=== PATIENT | male | born 1960 | race Caucasian/White ===

== ENCOUNTER 2022-06-10 14:26 | Inpatient (IN) | payer OTHER, SELFPAY ==
[2022-06-10] VITALS (8 sets, daily range): BP systolic 94–147; BP diastolic 59–88; PULSE 57–150; RESP 13–18; TEMP 36.6–36.7; O2SAT 97–99; BMI 28.2
--- NOTE | 2022-06-10 | ECG_ITS ---
Test Reason : chest pain Blood Pressure : / mmHG Vent. Rate : 102 BPM Atrial Rate : 000 BPM P-R Int : 000 ms QRS Dur : 092 ms QT Int : 348 ms P-R-T Axes : 000 -19 021 degrees QTc Int : 453 ms Atrial fibrillation with rapid ventricular response Abnormal ECG When compared with ECG of 10-JUN-2022 14:34, Atrial fibrillation has replaced Sinus rhythm Right bundle branch block is no longer Present Heart rate has decreased Referred By: Lakshmi Augustine Electronically Signed By:MAG PAGAN
--- NOTE | ~2022-06-10 | XR_ITS ---
EXAMINATION: XR CHEST CLINICAL INFORMATION: Tachycardia COMPARISON: Wrist x-ray 10/01/2012 TECHNIQUE: 2 views of the chest were obtained. FINDINGS: The lungs are clear. No airspace consolidation, pleural effusion, or pneumothorax. The cardiomediastinal silhouette is within normal limits. No acute osseous injury. Suture anchors in the right humeral head compatible with prior rotator cuff repair. XR/XR chest 2V IMPRESSION: No acute pulmonary process.
--- NOTE | 2022-06-10 14:27 | ECG_ITS ---
Test Reason : palp Blood Pressure : / mmHG Vent. Rate : 151 BPM Atrial Rate : 151 BPM P-R Int : 132 ms QRS Dur : 140 ms QT Int : 316 ms P-R-T Axes : 000 -32 -59 degrees QTc Int : 500 ms Sinus tachycardia Left axis deviation Right bundle branch block ST depression, consider subendocardial injury Inferior leads Abnormal ECG When compared with ECG of 08-OCT-2016 15:16, Vent. rate has increased BY 66 BPM Right bundle branch block is now Present ST now depressed in Inferior leads Referred By: Generic ED Physician Electronically Signed By:MAG PAGAN
[2022-06-10 14:43] LABS: MANUAL DIFF FLAG NO
[2022-06-10 14:44] LABS: Basophils Absolute Auto 0.1 X10*3/uL (0.0-0.2); Basophils Percent Auto 0.9 % (0-2); Hematocrit 41.8 % (42.0-52.0); Hemoglobin 13.8 g/dl (14.0-18.0); Imm Gran Abs Auto 0.03 X10*3/uL (0.00-0.03); Imm Gran Pct Auto 0.4 % (0.0-0.4); Lymphocytes Absolute Auto 1.2 X10*3/uL (1.2-4.9); Lymphocytes Percent Auto 15.1 % (20-40); Mean Corpuscular Hemoglobin 31.2 pg (27.0-33.0); Mean Corpuscular Volume 94.4 fL (80.0-98.0); Mean Platelet Volume 9.9 fL (9.4-12.4); Monocytes Absolute Auto 0.4 X10*3/uL (0.1-1.2); Monocytes Percent Auto 4.9 % (2-11); Neutrophils Absolute Auto 6.4 x10*3/uL (2.0-8.3); Neutrophils Percent Auto 78.7 % (45-73); Platelet Count 289 X10*3/uL (160-400); Red Blood Count 4.43 X10*6/uL (4.60-5.80); Red Cell Distribution Width 12.4 % (11.0-16.0); White Blood Count 8.2 X10*3/uL (4.8-10.8)
--- NOTE | 2022-06-10 14:50 | PC.NURSE ---
Patient arrives to ED room 5 and care assumed. Patient was seen about 2 weeks ago for an elbow cellulitis and was diagnosed with new onset AFIB 150s- started on metoprolol and xarelto ( has been taking as prescribed, but only took 1/2 metop this AM because ran out). While at a routine appointment today, still in afib 150s so sent to ED. Patient is alert, oriented x4, and overall well-appearing. He endorses palpitations and a headache. Denies chest PAIN. +pulses palpalbe. HR AFIB 150s with extremely short moments of NSR.
--- NOTE | 2022-06-10 14:57 | ED_ITS ---
HPI - Arrhythmia/Palpitations General Chief Complaint: Arrhythmia/Palpitations Stated Complaint: Afib Time Seen by Provider: 06/10/22 14:35 Source: patient and family Mode of arrival: ambulatory Limitations: no limitations History of Present Illness HPI narrative: 62-year-old male who is diagnosed with AFib at the PCP office 2 weeks ago started on Xarelto and metoprolol 50 mg daily presents with reports of tachyc ardia. Patient tells me he is waiting for an appoint with Cardiology. He followed up today the primary care office and was noted to have heart rates in the 150s and was referred into the emergency room for further evaluation. Patient tells me he has been compliant with medications and starting them 2 weeks ago. Patient has history of an unknown autoimmune disorder on prednisone, hypertension, arthritis takes chronic opiates, ADHD. Patient reports feeling tired all the time, intermittent palpitations. No chest pain, shortness of breath, leg swelling or leg pain. Related Data Home Medications Medication Instructions Recorded Confirmed dextroamphetamine-amphetamine 15 1 tab PO BID@0700,1200 06/10/22 06/10/22 mg tablet ergocalciferol (vitamin D2) 1,250 1 cap PO MO 06/10/22 06/10/22 mcg (50,000 unit) capsule lisinopril 40 mg tablet 1 tab PO DAILY 06/10/22 06/10/22 metoprolol succinate 50 mg 1 tab PO DAILY 06/10/22 06/10/22 tablet,extended release 24 hr oxycodone-acetaminophen 7.5 mg-325 1 tab PO TID PRN Pain 06/10/22 06/10/22 mg tablet prednisone 5 mg tablet 1 tab PO DAILY 06/10/22 06/10/22 rivaroxaban 20 mg tablet (Xarelto) 1 tab PO DAILY 06/10/22 06/10/22 Allergies Allergy/AdvReac Type Severity Reaction Status Date / Time phenobarbital [PHENOBARBITAL] Allergy Severe RASH, Verified 06/10/22 15:21 blisters codeine [Codeine] Allergy Intermediate NAUSEA/VOMITING, Verified 06/10/22 15:21 GI upset aspirin [Fiorinal] Allergy Unknown hives Verified 06/10/22 15:21 butalbital [Fiorinal] Allergy Unknown hives Verified 06/10/22 15:21 caffeine [Fiorinal] Allergy Unknown hives Verified 06/10/22 15:21 Codeine Sulfate Allergy Unknown nausea and Uncoded 06/10/22 15:21 vomiting Review of Systems Review of Systems: Yes all other systems are reviewed and are negative Constitutional: Constitutional: Reports no additional constitutional complaints, Denies body ache(s), Denies chills, Denies fever(s), Denies headache(s) and Denies weakness Eyes: Eyes: Reports no additional eye complaints and Denies change in vision ENT: Reports system reviewed and no additional complaints, except as documented, Denies dizziness, Denies headache(s), Denies nasal congestion, Denies nasal discharge and Denies neck pain Cardiovascular: Cardiovascular: Reports no additional cardiovascular complaints, Denies acrocyanosis, Denies chest pain, Denies leg edema, Reports palpitations and Denies dyspnea Respiratory: Respiratory: Reports no additional respiratory complaints, Denies cough and Denies dyspnea Gastrointestinal: Gastrointestinal: Reports no additional gastrointestinal complaints, Denies abdominal pain, Denies diarrhea, Denies nausea and Denies vomiting Genitourinary: Genitourinary: Denies urinary incontinence Musculoskeletal: Musculoskeletal: Reports no additional musculoskeletal complaints, Denies back pain, Denies arthralgias, Denies joint swelling, Denies neck pain, Denies numbness and Denies tingling Integumentary/Breasts: Skin/Breast: Reports system reviewed and no additional complaints, except as docu and Denies rash Neurologic: Reports system reviewed and no additional complaints, except as documented, Denies Abnormal speech present, Denies dizziness, Denies headache(s), Denies numbness, Denies tingling and Denies weakness Endocrine: Endocrine: Reports palpitations PMFSH Past Medical History Attestation statement: The following information was validated with the patient. Source: old records reviewed and nursing notes reviewed Social History Social History Advance Directives: No Advance Directives Information Provided: Yes Physical Exam Vital Signs: Vital Signs: Last Vital Signs Temp 98.0 F 06/10/22 14:50 Pulse 57 06/10/22 15:47 Resp 18 06/10/22 15:17 BP 128/80 06/10/22 15:47 Pulse Ox 99 06/10/22 14:50 O2 Del Method 06/10/22 14:50 BMI result Body Mass Index 28.2 Const: General: cooperative, healthy appearing, comfortable and no acute distress Orientation/consciousness: patient oriented x3 Limitations: no limitations HEENT: Head: Yes normal to inspection Ears: hearing grossly normal bilaterally General nose exam: Normal external nose present Face and sinus: Yes normal facial exam Mouth: Normal oral and palatal mucosa present Throat: Yes posterior oropharynx normal Eyes: General: appearance normal, both eyes and all related structures Pupils: Equal, round and reactive pupils present Neck: Neck: Yes normal visual inspection Chest: Chest palpation & inspection: normal inspection of the chest Resp: Effort & Inspection: normal respiratory effort Auscultation: clear to auscultation bilaterally Cardio: Rate: tachycardic Rhythm: abnormal rhythm irregularly irregular Peripheral pulses: Peripheral pulses 2+ throughout GI: Inspection: Yes normal to inspection Palpation (GI): Soft to palpation and nontender Auscultation: normal bowel sounds Back/Spine/Pelvis: Thoracic/Lumbar Spine: thoracic and lumbar spine normal to inspection Skin: General skin exam: no rashes or lesions noted Neuro: General: patient oriented x3, no focal motor deficits and normal sensation to monofilament Cranial nerves: Yes Equal, round and reactive pupils present Cognition (Neuro): normal cognition Speech: No Abnormal speech present Gait exam (Neuro): Normal gait present Motor exam (neuro): 5/5 motor strength present throughout Extrem: General: Yes normal to inspection, Yes no pedal edema and Yes no calf tenderness Course Course Course Narrative: After a single dose of Cardizem IV push and several minutes of cardizem gtt the patient's heart rate ranges anywhere from 50-120 irregular. I spoke to Dr. Garcia. Recommended hold in Cardizem drip unless heart rate elevated and t hen may manage with IV push Cardizem. Give Cardizem 60 mg p.o. 1 time dose and admit to medicine. Reevaluation(s) Reevaluation #1: 1630-will discuss with medicine for admission. Spoke to Lakshmi BENÍTEZ who accepted admission Consultations Consultation #1: Spoke to Dr. Garcia from Cardiology. Recommended Cardizem drip for rate control and admission MDM - Arrhythmia/Palpitations MDM Narrative Medical decision making narrative: This is a 62-year-old male who reportedly was diagnosed with AFib 2 weeks ago the primary care office and started on metoprolol and Xarelto who presents from the primary care office today with tachycardia with heart rates in the 150s. On arrival patient has heart rate 150. Blood pressure is stable. Patient is al ert and oriented. EKG will be obtained including labs and a chest x-ray and COVID screen. 1500-patient noted to have heart rate anywhere from 80-160 irregular. EKG shows flutter/fib Will give cardizem 10mg IVP and re-assess. Anticipate admit D/w with cards Medical Records Attestation: I reviewed the patient's medical records. Lab Data Attestation: I reviewed the patient's lab results. Result diagrams: 06/10/22 14:38 06/10/22 14:38 Labs: Lab Results 06/10/22 06/10/22 06/10/22 Range/Units 14:38 14:38 14:38 WBC 8.2 (4.8-10.8) X10*3/uL RBC 4.43 L (4.60-5.80) X10*6/uL Hgb 13.8 L (14.0-18.0) g/dl Hct 41.8 L (42.0-52.0) % MCV 94.4 (80.0-98.0) fL MCH 31.2 (27.0-33.0) pg MCHC 33.0 (31.0-36.0) g/dl RDW 12.4 (11.0-16.0) % Plt Count 289 (160-400) X10*3/uL MPV 9.9 (9.4-12.4) fL Immature Gran % (Auto) 0.4 (0.0-0.4) % Neut % (Auto) 78.7 H (45-73) % Lymph % (Auto) 15.1 L (20-40) % [place] % (Auto) 4.9 (2-11) % Eos % (Auto) 0.0 (0-4) % Baso % (Auto) 0.9 (0-2) % Lymph # (Auto) 1.2 (1.2-4.9) X10*3/uL [place] # (Auto) 0.4 (0.1-1.2) X10*3/uL Eos # (Auto) 0.0 (0.0-0.4) X10*3/uL Baso # (Auto) 0.1 (0.0-0.2) X10*3/uL Abs Immat Gran (auto) 0.03 (0.00-0.03) X10*3/uL Absolute Neuts (auto) 6.4 (2.0-8.3) x10*3/uL Absolute Nucleated RBC 0.000 (0.0-0.012) X10*3/uL Nucleated RBC % (auto) 0.0 (0.0-0.2) /100WBC PT (10.0-13.1) SEC INR (0.9-1.1) Sodium 142 (135-145) mmol/L Potassium 4.9 (3.3-5.1) mmol/L Chloride 103 (96-108) mmol/L Carbon Dioxide 26 (22-29) mmol/L Anion Gap 18 (12-20) BUN 28 H (9-16) mg/dL Creatinine 1.32 (0.5-1.4) mg/dL Estim Creat Clear Calc 71.3 Estimated GFR 55 Random Glucose 117 H (60-115) mg/dL Calcium 9.6 (8.4-10.2) mg/dL Magnesium 2.5 (1.6-2.6) mg/dL Total Bilirubin 0.4 (0.0-1.0) mg/dL Direct Bilirubin < 0.2 (0.0-0.5) mg/dL AST 26 (5-37) U/L ALT 23 (0-40) U/L Alkaline Phosphatase 66 (39-117) U/L Troponin I High Sens 8.4 (<3.5-35.0) ng/L B-Natriuretic Peptide (<100) pg/mL Total Protein 7.1 (6.5-8.0) g/dL Albumin 4.2 (3.5-5.0) g/dL COVID-19 ([facility]) (Negative) COVID-19 Clin Com 06/10/22 06/10/22 06/10/22 Range/Units 14:38 14:49 14:49 WBC (4.8-10.8) X10*3/uL RBC (4.60-5.80) X10*6/uL Hgb (14.0-18.0) g/dl Hct (42.0-52.0) % MCV (80.0-98.0) fL MCH (27.0-33.0) pg MCHC (31.0-36.0) g/dl RDW (11.0-16.0) % Plt Count (160-400) X10*3/uL MPV (9.4-12.4) fL Immature Gran % (Auto) (0.0-0.4) % Neut % (Auto) (45-73) % Lymph % (Auto) (20-40) % [place] % (Auto) (2-11) % Eos % (Auto) (0-4) % Baso % (Auto) (0-2) % Lymph # (Auto) (1.2-4.9) X10*3/uL [place] # (Auto) (0.1-1.2) X10*3/uL Eos # (Auto) (0.0-0.4) X10*3/uL Baso # (Auto) (0.0-0.2) X10*3/uL Abs Immat Gran (auto) (0.00-0.03) X10*3/uL Absolute Neuts (auto) (2.0-8.3) x10*3/uL Absolute Nucleated RBC (0.0-0.012) X10*3/uL Nucleated RBC % (auto) (0.0-0.2) /100WBC PT 15.4 H (10.0-13.1) SEC INR 1.3 H (0.9-1.1) Sodium (135-145) mmol/L Potassium (3.3-5.1) mmol/L Chloride (96-108) mmol/L Carbon Dioxide (22-29) mmol/L Anion Gap (12-20) BUN (9-16) mg/dL Creatinine (0.5-1.4) mg/dL Estim Creat Clear Calc Estimated GFR Random Glucose (60-115) mg/dL Calcium (8.4-10.2) mg/dL Magnesium (1.6-2.6) mg/dL Total Bilirubin (0.0-1.0) mg/dL Direct Bilirubin (0.0-0.5) mg/dL AST (5-37) U/L ALT (0-40) U/L Alkaline Phosphatase (39-117) U/L Troponin I High Sens (<3.5-35.0) ng/L B-Natriuretic Peptide 265 H (<100) pg/mL Total Protein (6.5-8.0) g/dL Albumin (3.5-5.0) g/dL COVID-19 ([facility]) Negative (Negative) COVID-19 Clin Com See Note Imaging Data Chest x-ray: Attestation: I personally reviewed and interpreted this imaging study as follows: Radiologist's impression: EXAMINATION: XR CHEST CLINICAL INFORMATION: Tachycardia COMPARISON: Wrist x-ray 10/01/2012 TECHNIQUE: 2 views of the chest were obtained. FINDINGS: The lungs are clear. No airspace consolidation, pleural effusion, or pneumothorax. The cardiomediastinal silhouette is within normal limits. No acute osseous injury. Suture anchors in the right humeral head compatible with prior rotator cuff repair. XR/XR chest 2V IMPRESSION: No acute pulmonary process. ECG Data Attestation: I personally reviewed and interpreted this ECG as follows: ECG interpretation date: 06/10/22 ECG interpretation time: 14:34 Critical Care Time Critical Care Time Critical Care Time: Yes Total Critical Care Time: 60 Attestation: re-evaluations for tachycardic rhythm requiring intervention with anti arrhythmics, discussion with Cardiology Discharge Plan Discharge Clinical Impression: Atrial fibrillation Patient Disposition: Admitted As Inpatient
[2022-06-10 15:01] LABS: COVID-19 Test Negative (Negative); IDNOW Serial# 16C4AD1C
[2022-06-10 15:03] LABS: INTERNATIONAL NORM RATIO 1.3 (0.9-1.1); Prothrombin Time 15.4 SEC (10.0-13.1)
[2022-06-10 15:04] LABS: Troponin-I High Sensitivity 8.4 ng/L (<3.5-35.0)
[2022-06-10 15:08] LABS: Alanine Aminotransferase 23 U/L (0-40); Albumin Level 4.2 g/dL (3.5-5.0); Alkaline Phosphatase 66 U/L (39-117); Anion Gap 18 (12-20); Aspartate Amino Transferase 26 U/L (5-37); Bilirubin Direct < 0.2 mg/dL (0.0-0.5); Bilirubin Total 0.4 mg/dL (0.0-1.0); Blood Urea Nitrogen 28 mg/dL (9-16); Calcium 9.6 mg/dL (8.4-10.2); Carbon Dioxide 26 mmol/L (22-29); Chloride 103 mmol/L (96-108); Creatinine Clr Calc Pharmacy 71.3; Estimated Glomerular Filt Rate 55; Glucose Random 117 mg/dL (60-115); Potassium 4.9 mmol/L (3.3-5.1); Sodium 142 mmol/L (135-145); Total Protein 7.1 g/dL (6.5-8.0)
[2022-06-10] MEDS: dilTIAZem HCL 50 MG/10 ML VIAL 10 MG IVPUSH (15:13)
[2022-06-10 15:21] LABS: Magnesium 2.5 mg/dL (1.6-2.6)
[2022-06-10 15:26] LABS: B Type Natriuretic Peptide 265 pg/mL (<100)
[2022-06-10] MEDS: dilTIAZem HCL 125 MG in 0.9 % Sodium Chloride 100 ML 10 MG IVCONT (15:44)
--- NOTE | 2022-06-10 15:59 | PC.NURSE ---
Cardizem drip initiated and HR varying from SB 50s to 1teens, intermittenly back up to 150s afib. 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
[2022-06-10] MEDS: dilTIAZem HCL 60 MG TABLET PO (16:49)
--- NOTE | 2022-06-10 17:14 | PM.IMHP ---
History of Present Illness Date of Service: 06/10/22 Attending physician on admission: Marcellus Nice Chief Complaint: tachycardia This is a 62-year-old male who was recently diagnosed with atrial fibrillation sent to the emergency department from his PCPs office with rapid AFib. Two weeks ago he had routine follow-up appointment with his PCP and was incidentally found to be tachycardic with a heart rate in the 150s. EKG at that time showed atrial fibrillation. His dose of metoprolol was increased and he was started on anticoagulation with Xarelto. He reports that he has had episodes where he feels an abnormal sensation in his chest intermittently for the past several years. Sometimes reports feeling like its hard to catch his breath. He does not currently have any shortness of breath, orthopnea or chest pain. In the emergency department he received 10 mg of IV Cardizem and was then started on a Cardizem drip. Shortly after being started on Cardizem drip his heart rate dropped into the 50s and thus the Cardizem drip was discontinued. He was instead given a dose of oral Cardizem and the decision was made to admit him to the hospital for further management. Of note patient's heart rate has been fluctuating between the 50s and 140s. Review of Systems Review of Systems: Yes all other systems are reviewed and are negative Constitutional: Constitutional: Denies chills and Denies fever(s) ENT: Reports dizziness Cardiovascular: Cardiovascular: Denies chest pain, Denies palpitations, Denies orthopnea and Denies paroxysmal nocturnal dyspnea Gastrointestinal: Gastrointestinal: Denies constipation, Denies diarrhea, Reports nausea and Denies vomiting Neurologic: Reports dizziness Endocrine: Endocrine: Denies palpitations [facility] Medical History (Updated 06/10/22 @ 17:43 by JEYSON Acosta) Atrial fibrillation HTN (hypertension) Lupus Functional capacity: independent ambulation Family History (Updated 06/10/22 @ 17:30 by JEYSON Acosta) Other CAD (coronary artery disease) Surgical History (Updated 06/10/22 @ 17:32 by JEYSON Acosta) H/O shoulder surgery H/O thumb surgery History of total right hip arthroplasty Social History (Updated 06/10/22 @ 17:34 by JEYSON Acosta) Alcohol intake: never Patient Tobacco Use Status: Never used Tobacco e-Cigarette/Vaping Use: Currently Using Frequency of e-Cigarette/Vaping Use: CBD vape Advance Directives: No Advance Directives Information Provided: Yes Meds Allergies Allergy/AdvReac Type Severity Reaction Status Date / Time phenobarbital [PHENOBARBITAL] Allergy Severe RASH, Verified 06/10/22 15:21 blisters codeine [Codeine] Allergy Intermediate NAUSEA/VOMITING, Verified 06/10/22 15:21 GI upset aspirin [Fiorinal] Allergy Unknown hives Verified 06/10/22 15:21 butalbital [Fiorinal] Allergy Unknown hives Verified 06/10/22 15:21 caffeine [Fiorinal] Allergy Unknown hives Verified 06/10/22 15:21 Codeine Sulfate Allergy Unknown nausea and Uncoded 06/10/22 15:21 vomiting Active Medications: Current Medications Acetaminophen (Acetaminophen 325 Mg Tablet) 650 mg PO Q6H PRN PRN Reason: Pain, Mild (Pain Scale 1-3) Docusate Sodium (Docusate Sodium 100 Mg Capsule) 100 mg PO DAILY PRN PRN Reason: Constipation Ergocalciferol (Ergocalciferol (Vitamin D2) 1,250 Mcg Capsule) 1,250 mcg PO MO [facility] Ondansetron HCl (Ondansetron Hcl 4 Mg/2 Ml Vial) 4 mg IVPUSH Q8H PRN PRN Reason: Nausea and Vomiting Oxycodone HCl (Oxycodone Hcl Immed Release 5 Mg Tablet) 7.5 mg PO TID PRN PRN Reason: Pain Pharmacy Consult (Consult Rx Perform Med Rec) 1 each MISCELLANE ONCE PRN PRN Reason: Consult order Prednisone (Prednisone 5 Mg Tablet) 5 mg PO DAILY [facility]A Rivaroxaban (Rivaroxaban 20 Mg Tablet) 20 mg PO DAILY [facility] Sodium Chloride (0.9 % Sodium Chloride Flush 3 Ml Syringe) 3 ml IVFLUSH QSHIFT [facility] Home Medications Medication Instructions Recorded Confirmed Last Taken Type dextroamphetamine-amphetamine 15 1 tab PO BID@0700,1200 06/10/22 06/10/22 06/10/22 History mg tablet ergocalciferol (vitamin D2) 1,250 1 cap PO MO 06/10/22 06/10/22 06/06/22 History mcg (50,000 unit) capsule lisinopril 40 mg tablet 1 tab PO DAILY 0906/10/22 06/10/22 History metoprolol succinate 50 mg 1 tab PO DAILY 06/10/22 06/10/22 06/10/22 History tablet,extended release 24 hr oxycodone-acetaminophen 7.5 mg-325 1 tab PO TID PRN Pain 06/10/22 06/10/22 06/10/22 History mg tablet prednisone 5 mg tablet 1 tab PO DAILY 06/10/22 06/10/22 06/10/22 History rivaroxaban 20 mg tablet (Xarelto) 1 tab PO DAILY 06/10/22 06/10/22 06/10/22 History Physical Exam Vital Signs and Narrative: Vital Signs: Last Vital Signs Temp 98.0 F 06/10/22 14:50 Pulse 57 06/10/22 15:47 Resp 18 06/10/22 15:17 BP 128/80 06/10/22 15:47 Pulse Ox 99 06/10/22 14:50 O2 Del Method 06/10/22 14:50 BMI result Body Mass Index 28.2 Const: General: cooperative, comfortable, alert and awake Nutritional Appearance: average body habitus Orientation/consciousness: patient oriented x3 Resp: Effort & Inspection: normal respiratory effort and able to speak in complete sentences Auscultation: clear to auscultation bilaterally Cardio: Other: HR variable, no murmurs appreciated GI: Inspection: No distended Palpation (GI): Soft to palpation and nontender Neuro: General: patient oriented x3 and CN's II-XI intact bilaterally Extrem: Other: Able to move all 4 extremities spontaneously; trace right lower extremity edema Results Labs CBC and Chem 7: 06/10/22 14:38 06/10/22 14:38 Labs: Laboratory Results - last 24 hr 06/10/22 06/10/22 06/10/22 14:38 14:38 14:38 MCV 94.4 MCH 31.2 MCHC 33.0 RDW 12.4 Plt Count 289 MPV 9.9 Immature Gran % (Auto) 0.4 Neut % (Auto) 78.7 H Lymph % (Auto) 15.1 L [place] % (Auto) 4.9 Eos % (Auto) 0.0 Baso % (Auto) 0.9 Lymph # (Auto) 1.2 [place] # (Auto) 0.4 Eos # (Auto) 0.0 Baso # (Auto) 0.1 Abs Immat Gran (auto) 0.03 Absolute Neuts (auto) 6.4 Absolute Nucleated RBC 0.000 Nucleated RBC % (auto) 0.0 PT INR Anion Gap 18 Estim Creat Clear Calc 71.3 Estimated GFR 55 Random Glucose 117 H Calcium 9.6 Magnesium 2.5 Total Bilirubin 0.4 Direct Bilirubin < 0.2 AST 26 ALT 23 Alkaline Phosphatase 66 B-Natriuretic Peptide Total Protein 7.1 Albumin 4.2 COVID-19 ([facility]) Negative COVID-19 Clin Com See Note 06/10/22 06/10/22 14:49 14:49 MCV MCH MCHC RDW Plt Count MPV Immature Gran % (Auto) Neut % (Auto) Lymph % (Auto) [place] % (Auto) Eos % (Auto) Baso % (Auto) Lymph # (Auto) [place] # (Auto) Eos # (Auto) Baso # (Auto) Abs Immat Gran (auto) Absolute Neuts (auto) Absolute Nucleated RBC Nucleated RBC % (auto) PT 15.4 H INR 1.3 H Anion Gap Estim Creat Clear Calc Estimated GFR Random Glucose Calcium Magnesium Total Bilirubin Direct Bilirubin AST ALT Alkaline Phosphatase B-Natriuretic Peptide 265 H Total Protein Albumin COVID-19 ([facility]) COVID-19 Clin Com Imaging Radiologist's Impressions: Impressions Chest X-Ray 06/10/22 15:20 IMPRESSION: No acute pulmonary process. Assessment and Plan (1) Atrial fibrillation with rapid ventricular response: Status: Acute Plan This is a 62-year-old male with recently diagnosed atrial fibrillation, autoimmune disorder thought to be lupus, hypertension sent to the emergency department by his PCP for rapid atrial fibrillation Atrial fibrillation with rapid ventricular response recently diagnosed, unspecified -start cardizem 30q6 hrs -hold metoprolol -continue Xarelto -echocardiogram -check TSH -cardiology consultation -hold Adderall -trend cardiac enzymes Elevated BNP BNP 265 CXR negative no evidence of fluid overload at this time Autoimmune disorder, tentative diagnosis of lupus continue baseline dose of prednisone HTN -hold lisinopril for now while receiving cardizem -metoprolol on hold chronic pain Continue baseline medications DVT prophylaxis-Xarelto Code status-full code Healthcare proxy- Patient will likely require 2 midnight stay in the hospital for management of atrial fibrillation with rapid ventricular response and need for close telemetry monitoring and specialist consultation Quality Stroke Does the patient have a stroke diagnosis?: No VTE Prior VTE?: No VTE Risk Level:: Medical - moderate - high VTE Device Contraindication: Treatment Not Indicated VTE Drug Contraindication: Treatment Not Indicated
[2022-06-10 17:34] LABS: TSH reflex Free T4 1.37 uIU/mL (0.32-4.0)
[2022-06-10 18:06] LABS: Troponin-I High Sensitivity 8.6 ng/L (<3.5-35.0)
--- NOTE | 2022-06-10 18:19 | PM.EVENT ---
Event Note Date of Service: 06/10/22 Event Note: 62-year-old male with recently diagnosed atrial fibrillation, autoimmune disorder thought to be lupus, hypertension sent to the emergency department by his PCP for rapid atrial fibrillation. This patient is seen and examined with APC. Lab imaging, EKG's reviewed. Hemoglobin 13.8 hematocrit 41 Platelets 289 BUN: 28, creatinine 1.3 Chest x-ray negative TSH normal, BNP 265 Physical exam : Please see history and physical- cardio: Irregular rhythm, S1-S2 heard Extremities no cyanosis or edema Chest: Clear to auscultation no rales or wheezing assessment and plan coordinated in APCs note, Agree with the plan in addition: AFib recently diagnosed(PossiblePAF), comes AFib with RVR Given Cardizem drip but heart rate flactauatin It took metoprolol this morning, added p.o. Cardizem-heart rate is fluctuating from 60-110 range Continue to monitor on tele initial EKG ST depression probably related to fast rate, repeated EKG does not show ST depressions in inferior leads. Patient denies any chest pain, troponin flat will continue to monitor. Cardiology evaluation, echo
[2022-06-11 00:31] VITALS: BP 116/73; PULSE 51; RESP 12; O2SAT 98
[2022-06-11] MEDS: 0.9 % Sodium Chloride Flush 3 ML SYRINGE IVFLUSH ×2 (00:33→08:28)
[2022-06-11 05:05] VITALS: BP 125/74; PULSE 72; RESP 12; TEMP 36.5; O2SAT 98
[2022-06-11 07:13] VITALS: BP 131/82; PULSE 53; RESP 14; O2SAT 99
[2022-06-11 07:40] LABS: Hematocrit 38.7 % (42.0-52.0); Hemoglobin 12.6 g/dl (14.0-18.0); Mean Corpuscular HGB Conc 32.6 g/dl (31.0-36.0); Mean Corpuscular Hemoglobin 30.5 pg (27.0-33.0); Mean Corpuscular Volume 93.7 fL (80.0-98.0); Mean Platelet Volume 10.3 fL (9.4-12.4); Platelet Count 239 X10*3/uL (160-400); Red Blood Count 4.13 X10*6/uL (4.60-5.80); Red Cell Distribution Width 12.5 % (11.0-16.0); White Blood Count 5.9 X10*3/uL (4.8-10.8)
[2022-06-11 07:58] LABS: Anion Gap 14 (12-20); Blood Urea Nitrogen 23 mg/dL (9-16); Calcium 9.1 mg/dL (8.4-10.2); Carbon Dioxide 27 mmol/L (22-29); Chloride 103 mmol/L (96-108); Creatinine Clr Calc Pharmacy 105.8; Estimated Glomerular Filt Rate > 60; Glucose Random 84 mg/dL (60-115); Potassium 4.5 mmol/L (3.3-5.1); Sodium 139 mmol/L (135-145)
[2022-06-11] MEDS: predniSONE 5 MG TABLET PO (08:11)
[2022-06-11] MEDS: Rivaroxaban 20 MG TABLET PO (08:11)
[2022-06-11 08:20] VITALS: BP 137/85; PULSE 58; RESP 96; O2SAT 96
--- NOTE | 2022-06-11 08:25 | PC.NURSE ---
report given to imc rn
[2022-06-11] MEDS: oxyCODONE HCl Immed Release 5 MG TABLET 7.5 MG PO (08:26)
--- NOTE | 2022-06-11 09:51 | PM.CNCAR ---
History of Present Illness History of Present Illness Date of Service: 06/11/22 Chief complaint: Afib with Rvr Narrative: This is a cardiology consultation regarding atrial flutter. Patient was actually referred for evaluation as an outpatient but has not been seen yet. In the interim, he was seen by his primary care physician as today and was thought to be in a rapid rate in the 150s and sent to the emergency room. Patient himself does not have any clear symptoms at this time and he states he is feeling back to normal. 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 He states he is quite active on a regular basis without any limitations. In the past, going back many years he has had intermittent palpitations but never long-lasting. He always did not think it was of any significance and hence did not pursue any workup. He has also had episodes of shortness of breath at different times again without any clear workup or follow-up. No known coronary artery disease or myocardial infarction or cardiomyopathy according to him. Otherwise, he does not have any family history of premature CAD but states there was some history of aneurysm in brother and father but he cannot give any further details as to what they are. However, there were also obese and smoking. With regard to social history, he does vape THC/CBD. In the ER, received IV Cardizem, brief Cardizem drip and then oral Cardizem. Currently, in sinus rhythm. Review of Systems Review of Systems: Yes all other systems are reviewed and are negative Constitutional: Constitutional: Reports as per HPI Eyes: Eyes: Reports as per HPI ENT: Reports as per HPI Cardiovascular: Cardiovascular: Reports as per HPI, Denies acrocyanosis, Denies cool extremities, Denies chest pain, Denies leg edema, Denies lightheadedness, Denies palpitations and Denies dyspnea Respiratory: Respiratory: Reports as per HPI, Reports no additional respiratory complaints and Denies dyspnea Gastrointestinal: Gastrointestinal: Reports as per HPI and Reports no additional gastrointestinal complaints Genitourinary: Genitourinary: Reports no additional male genitourinary complaints and Reports as per HPI Musculoskeletal: Musculoskeletal: Reports no additional musculoskeletal complaints and Reports as per HPI Integumentary/Breasts: Skin/Breast: Reports system reviewed and no additional complaints, except as docu Neurologic: Reports system reviewed and no additional complaints, except as documented and Reports as per HPI Psychiatric: Psychiatric: Reports no additional psychiatric complaints and Reports as per HPI Endocrine: Endocrine: Reports no additional endocrine complaints, Reports as per HPI and Denies palpitations Hematologic/Lymphatic: Hematologic/Lymphatic: Reports no additional hematologic/lymphatic complaints and Reports as per HPI Allergic/Immunologic: Allergic/Immunologic: Reports no additional allergic/immunologic complaints and Reports as per HPI [facility] Past Medical History Medical History (Updated 06/11/22 @ 09:56 by Jamey Garcia MD) Atrial fibrillation HTN (hypertension) Lupus Functional capacity: independent ambulation Family History Family History (Updated 06/11/22 @ 09:54 by Jamey Garcia MD) Brother Aneurysm Father Aneurysm Other CAD (coronary artery disease) Surgical History Surgical History (Updated 06/10/22 @ 17:32 by JEYSON Acosta) H/O shoulder surgery H/O thumb surgery History of total right hip arthroplasty Social History Social History (Updated 06/10/22 @ 17:34 by JEYSON Acosta) Alcohol intake: never Patient Tobacco Use Status: Never used Tobacco e-Cigarette/Vaping Use: Currently Using Meds Allergies Allergy/AdvReac Type Severity Reaction Status Date / Time phenobarbital [PHENOBARBITAL] Allergy Severe RASH, Verified 06/10/22 15:21 blisters codeine [Codeine] Allergy Intermediate NAUSEA/VOMITING, Verified 06/10/22 15:21 GI upset aspirin [Fiorinal] Allergy Unknown hives Verified 06/10/22 15:21 butalbital [Fiorinal] Allergy Unknown hives Verified 06/10/22 15:21 caffeine [Fiorinal] Allergy Unknown hives Verified 06/10/22 15:21 Codeine Sulfate Allergy Unknown nausea and Uncoded 06/10/22 15:21 vomiting Active Medications: Current Medications Acetaminophen (Acetaminophen 325 Mg Tablet) 650 mg PO Q6H PRN PRN Reason: Pain, Mild (Pain Scale 1-3) Diltiazem HCl (Diltiazem Hcl 30 Mg Tablet) 30 mg PO Q6H CIRA; Protocol Last Admin: 06/11/22 06:24 Dose: Not Given Docusate Sodium (Docusate Sodium 100 Mg Capsule) 100 mg PO DAILY PRN PRN Reason: Constipation Ergocalciferol (Ergocalciferol (Vitamin D2) 1,250 Mcg Capsule) 1,250 mcg PO MO CIRA Ondansetron HCl (Ondansetron Hcl 4 Mg/2 Ml Vial) 4 mg IVPUSH Q8H PRN PRN Reason: Nausea and Vomiting Oxycodone HCl (Oxycodone Hcl Immed Release 5 Mg Tablet) 7.5 mg PO TID PRN PRN Reason: Pain Last Admin: 06/11/22 08:26 Dose: 7.5 mg Pharmacy Consult (Consult Rx Perform Med Rec) 1 each MISCELLANE ONCE PRN PRN Reason: Consult order Prednisone (Prednisone 5 Mg Tablet) 5 mg PO DAILY [facility] Last Admin: 06/11/22 08:11 Dose: 5 mg Rivaroxaban (Rivaroxaban 20 Mg Tablet) 20 mg PO DAILY [facility] Last Admin: 06/11/22 08:11 Dose: 20 mg Sodium Chloride (0.9 % Sodium Chloride Flush 3 Ml Syringe) 3 ml IVFLUSH QSHIFT [facility] Last Admin: 06/11/22 08:28 Dose: 3 ml Home Medications Medication Instructions Recorded Confirmed Last Taken Type dextroamphetamine-amphetamine 15 1 tab PO BID@0700,1200 06/10/22 06/10/22 06/10/22 History mg tablet ergocalciferol (vitamin D2) 1,250 1 cap PO MO 06/10/22 06/10/22 06/06/22 History mcg (50,000 unit) capsule lisinopril 40 mg tablet 1 tab PO DAILY 06/10/22 06/10/22 06/10/22 History metoprolol succinate 50 mg 1 tab PO DAILY 06/10/22 06/10/22 06/10/22 History tablet,extended release 24 hr oxycodone-acetaminophen 7.5 mg-325 1 tab PO TID PRN Pain 06/10/22 06/10/22 06/10/22 History mg tablet prednisone 5 mg tablet 1 tab PO DAILY 06/10/22 06/10/22 06/10/22 History rivaroxaban 20 mg tablet (Xarelto) 1 tab PO DAILY 06/10/22 06/10/22 06/10/22 History Physical Exam Vital Signs: Vital Signs: Last Vital Signs Temp 97.7 F 06/11/22 05:05 Pulse 58 06/11/22 08:20 Resp 96 H 06/11/22 08:20 BP 137/85 06/11/22 08:20 Pulse Ox 96 06/11/22 08:20 O2 Del Method 06/11/22 08:20 BMI result Body Mass Index 28.2 Const: General: comfortable and no acute distress Orientation/consciousness: patient oriented x3 HEENT: Other: Unremarkable Head: Yes normal to inspection Neck: Neck: Yes normal visual inspection Chest: Chest palpation & inspection: normal inspection of the chest Resp: Auscultation: clear to auscultation bilaterally Cardio: Palpation: normal PMI Heart sounds: S1 normal heart sound present, S2 normal heart sound present, no gallops, no murmurs and no rubs GI: Palpation (GI): Soft to palpation Back/Spine/Pelvis: Other: unremarkable Skin: General skin exam: no rashes or lesions noted Neuro: General: patient oriented x3 Extrem: General: Yes normal to inspection Psych: Mental Status: mental status grossly normal Objective Labs and Meds Result diagrams: 06/11/22 07:12 06/11/22 07:12 Lab results: Laboratory Results - last 24 hr 06/10/22 06/10/22 06/10/22 14:38 14:38 14:38 WBC 8.2 RBC 4.43 L Hgb 13.8 L Hct 41.8 L MCV 94.4 MCH 31.2 MCHC 33.0 RDW 12.4 Plt Count 289 MPV 9.9 Immature Gran % (Auto) 0.4 Neut % (Auto) 78.7 H Lymph % (Auto) 15.1 L [place] % (Auto) 4.9 Eos % (Auto) 0.0 Baso % (Auto) 0.9 Lymph # (Auto) 1.2 [place] # (Auto) 0.4 Eos # (Auto) 0.0 Baso # (Auto) 0.1 Abs Immat Gran (auto) 0.03 Absolute Neuts (auto) 6.4 Absolute Nucleated RBC 0.000 Nucleated RBC % (auto) 0.0 PT INR Sodium 142 Potassium 4.9 Chloride 103 Carbon Dioxide 26 Anion Gap 18 BUN 28 H Creatinine 1.32 Estim Creat Clear Calc 71.3 Estimated GFR 55 Random Glucose 117 H Calcium 9.6 Magnesium 2.5 Total Bilirubin 0.4 Direct Bilirubin < 0.2 AST 26 ALT 23 Alkaline Phosphatase 66 Troponin I High Sens 8.4 B-Natriuretic Peptide Total Protein 7.1 Albumin 4.2 TSH 1.37 COVID-19 ([facility]IS) COVID-19 Clin Com 06/10/22 06/10/22 06/10/22 14:38 14:49 14:49 WBC RBC Hgb Hct MCV MCH MCHC RDW Plt Count MPV Immature Gran % (Auto) Neut % (Auto) Lymph % (Auto) [place] % (Auto) Eos % (Auto) Baso % (Auto) Lymph # (Auto) [place] # (Auto) Eos # (Auto) Baso # (Auto) Abs Immat Gran (auto) Absolute Neuts (auto) Absolute Nucleated RBC Nucleated RBC % (auto) PT 15.4 H INR 1.3 H Sodium Potassium Chloride Carbon Dioxide Anion Gap BUN Creatinine Estim Creat Clear Calc Estimated GFR Random Glucose Calcium Magnesium Total Bilirubin Direct Bilirubin AST ALT Alkaline Phosphatase Troponin I High Sens B-Natriuretic Peptide 265 H Total Protein Albumin TSH COVID-19 (DENIS) Negative COVID-19 [place] Com See Note 06/10/22 06/11/22 06/11/22 17:34 07:12 07:12 WBC 5.9 RBC 4.13 L Hgb 12.6 L Hct 38.7 L MCV 93.7 MCH 30.5 MCHC 32.6 RDW 12.5 Plt Count 239 MPV 10.3 Immature Gran % (Auto) Neut % (Auto) Lymph % (Auto) [place] % (Auto) Eos % (Auto) Baso % (Auto) Lymph # (Auto) [place] # (Auto) Eos # (Auto) Baso # (Auto) Abs Immat Gran (auto) Absolute Neuts (auto) Absolute Nucleated RBC 0.000 Nucleated RBC % (auto) 0.0 PT INR Sodium 139 Potassium 4.5 Chloride 103 Carbon Dioxide 27 Anion Gap 14 BUN 23 H Creatinine 0.89 Estim Creat Clear Calc 105.8 Estimated GFR > 60 Random Glucose 84 Calcium 9.1 Magnesium Total Bilirubin Direct Bilirubin AST ALT Alkaline Phosphatase Troponin I High Sens 8.6 B-Natriuretic Peptide Total Protein Albumin TSH COVID-19 (DENIS) COVID-19 Clin Com ECG Interpretation: Admission EKG with atrial flutter at a rate of 151/Min. In the repeat EKG, difficult to say if it is flutter or fibrillation, rate of 102/Min. Imaging Radiologist's impression: Impressions Chest X-Ray 06/10/22 15:20 IMPRESSION: No acute pulmonary process. Assessment and Plan (1) Atrial flutter with rapid ventricular response: Status: Acute Plan Patient is currently in sinus rhythm on telemetry and back to his normal self. Home cardiac medications include metoprolol succinate, lisinopril and Xarelto. He seems to respond well to diltiazem and hence we can use that in addition. However, stop lisinopril to avoid any hypotension. May be still necessary based on his blood pressures. Avoid Adderal if able. Continue with anticoagulation. Will get echocardiogram as well as Holter as an outpatient. Labs reviewed-high sensitivity troponins are unremarkable. Cardiac BNP slightly high at 265. Chest x-ray reported to have no acute process. Procedures Date of Service Date of Service: 06/11/22
--- NOTE | 2022-06-11 10:03 | P.DS_ITS ---
DS: Providers Provider Date of Service: 06/11/22 Date of admission: 06/10/22 16:56 Date of discharge: 06/11/22 Primary care physician: Sebastien Lipscomb MD Consults: 06/10/22 15:18 Consult to Cardiology Stat Consulting Provider: Jamey Garcia Reason for consultation: aflutter 06/10/22 16:56 Consult to Cardiology Routine Consulting Provider: Jamey Garcia Reason for consultation: afib rvr Has provider been notified: No Attending physician on discharge: Alicia Angela Discharging clinician: Lakshmi Augustine DS: Diagnosis Discharge Diagnosis (1) Atrial flutter with rapid ventricular response: Status: Acute DS: Summary Hospital Course Hospital Course: From H&P on day of admission This is a 62-year-old male who was recently diagnosed with atrial fibrillation sent to the emergency department from his PCPs office with rapid AFib.? Two weeks ago he had routine follow-up appointment with his PCP and was incidentally found to be tachycardic with a heart rate in the 150s.? EKG at that time showed atrial fibrillation. His dose of metoprolol was increased and he was started on anticoagulation with Xarelto.? He reports that he has had episodes where he feels an abnormal sensation in his chest intermittently for the past several years. Sometimes reports feeling like its hard to catch his breath.? He does not currently have any shortness of breath, orthopnea or chest pain.? In the emergency department he received 10 mg of IV Cardizem and was then started on a Cardizem drip.? Shortly after being started on Cardizem drip his heart rate dropped into the 50s and thus the Cardizem drip was discontinued.? He was instead given a dose of oral Cardizem and the decision was made to admit him to the hospital for further management.? Of note patient's heart rate has been fluctuating between the 50s and 140s. Patient was managed to the hospital for management of atrial fibrillation with rapid ventricular response, recently diagnosed. Heart rate decreased on Cardizem drip and therefore this was discontinued. He was started on oral Cardizem. Heart rate remained controlled overnight and he eventually converted to NSR. TSH and magnesium were checked and within normal limits. He was seen in consultation by Cardiology who recommended for him to continue on his home dose of metoprolol with the addition oral Cardizem. He was continued on his anticoagulation with Xarelto. He should call to schedule follow-up appointment with cardiology for echocardiogram and holter monitor. He is encouraged to avoid Ritalin if able. He has remained asymptomatic with no chest pain, palpitations or shortness of breath. He is stable for discharge home at this time. Time Spent with Patient Time attestation: Total time spent providing and/or coordinating discharge services: Discharge coordination time: Greater than 30 minutes Quality: Safe Use of Opioids Does Pt have an Active Cancer Diagnosis on the Problem List?: No Quality: Stroke Does the patient have a stroke diagnosis?: No Physical Exam Vital Signs: Vital Signs: Last Vital Signs Temp 97.7 F 06/11/22 05:05 Pulse 58 06/11/22 08:20 Resp 96 H 06/11/22 08:20 BP 137/85 06/11/22 08:20 Pulse Ox 96 06/11/22 08:20 O2 Del Method 06/11/22 08:20 BMI result Body Mass Index 28.2 Const: General: cooperative, comfortable, alert and awake Nutritional Appearance: average body habitus Orientation/consciousness: patient oriented x3 Resp: Effort & Inspection: normal respiratory effort and able to speak in complete sentences Auscultation: clear to auscultation bilaterally Cardio: Other: bradycardia, no murmurs appreciated GI: Inspection: No distended Palpation (GI): Soft to palpation and nontender Neuro: General: patient oriented x3 and CN's II-XI intact bilaterally Extrem: Other: Able to move all 4 extremities spontaneously; trace right lower extremity edema DS: Data Data Completed and Pending Labs on day of discharge: Laboratory Results - last 24 hr 06/10/22 06/10/22 06/10/22 14:38 14:38 14:38 WBC 8.2 RBC 4.43 L Hgb 13.8 L Hct 41.8 L MCV 94.4 MCH 31.2 MCHC 33.0 RDW 12.4 Plt Count 289 MPV 9.9 Immature Gran % (Auto) 0.4 Neut % (Auto) 78.7 H Lymph % (Auto) 15.1 L [place] % (Auto) 4.9 Eos % (Auto) 0.0 Baso % (Auto) 0.9 Lymph # (Auto) 1.2 [place] # (Auto) 0.4 Eos # (Auto) 0.0 Baso # (Auto) 0.1 Abs Immat Gran (auto) 0.03 Absolute Neuts (auto) 6.4 Absolute Nucleated RBC 0.000 Nucleated RBC % (auto) 0.0 PT INR Sodium 142 Potassium 4.9 Chloride 103 Carbon Dioxide 26 Anion Gap 18 BUN 28 H Creatinine 1.32 Estim Creat Clear Calc 71.3 Estimated GFR 55 Random Glucose 117 H Calcium 9.6 Magnesium 2.5 Total Bilirubin 0.4 Direct Bilirubin < 0.2 AST 26 ALT 23 Alkaline Phosphatase 66 Troponin I High Sens 8.4 B-Natriuretic Peptide Total Protein 7.1 Albumin 4.2 TSH 1.37 COVID-19 (DENIS) COVID-19 Clin Com 06/10/22 06/10/22 06/10/22 14:38 14:49 14:49 WBC RBC Hgb Hct MCV MCH MCHC RDW Plt Count MPV Immature Gran % (Auto) Neut % (Auto) Lymph % (Auto) [place] % (Auto) Eos % (Auto) Baso % (Auto) Lymph # (Auto) [place] # (Auto) Eos # (Auto) Baso # (Auto) Abs Immat Gran (auto) Absolute Neuts (auto) Absolute Nucleated RBC Nucleated RBC % (auto) PT 15.4 H INR 1.3 H Sodium Potassium Chloride Carbon Dioxide Anion Gap BUN Creatinine Estim Creat Clear Calc Estimated GFR Random Glucose Calcium Magnesium Total Bilirubin Direct Bilirubin AST ALT Alkaline Phosphatase Troponin I High Sens B-Natriuretic Peptide 265 H Total Protein Albumin TSH COVID-19 (DENIS) Negative COVID-19 Clin Com See Note 06/10/22 06/11/22 06/11/22 17:34 07:12 07:12 WBC 5.9 RBC 4.13 L Hgb 12.6 L Hct 38.7 L MCV 93.7 MCH 30.5 MCHC 32.6 RDW 12.5 Plt Count 239 MPV 10.3 Immature Gran % (Auto) Neut % (Auto) Lymph % (Auto) [place] % (Auto) Eos % (Auto) Baso % (Auto) Lymph # (Auto) [place] # (Auto) Eos # (Auto) Baso # (Auto) Abs Immat Gran (auto) Absolute Neuts (auto) Absolute Nucleated RBC 0.000 Nucleated RBC % (auto) 0.0 PT INR Sodium 139 Potassium 4.5 Chloride 103 Carbon Dioxide 27 Anion Gap 14 BUN 23 H Creatinine 0.89 Estim Creat Clear Calc 105.8 Estimated GFR > 60 Random Glucose 84 Calcium 9.1 Magnesium Total Bilirubin Direct Bilirubin AST ALT Alkaline Phosphatase Troponin I High Sens 8.6 B-Natriuretic Peptide Total Protein Albumin TSH COVID-19 ([facility]) COVID-19 Clin Com Discharge Plan Discharge Patient Disposition: Home, Self-Care Discharge Diagnosis: Atrial flutter with rapid ventricular response Referrals: Sebastien Lipscomb MD [Primary Care Provider] - 1 Week Discharge Medications: New lisinopril 20 mg tablet 20 mg PO DAILY 30 Days Qty: 30 0RF diltiazem HCl [Cardizem CD] 180 mg capsule,extended release 24hr 180 mg PO DAILY 30 Days Qty: 30 0RF Continued prednisone 5 mg tablet 1 tab PO DAILY ergocalciferol (vitamin D2) 1,250 mcg (50,000 unit) capsule 1 cap PO MO oxycodone-acetaminophen 7.5-325 mg tablet 1 tab PO TID PRN (Reason: Pain) Xarelto 20 mg tablet 1 tab PO DAILY Discontinued metoprolol succinate 50 mg tablet extended release 24 hr 1 tab PO DAILY dextroamphetamine-amphetamine 15 mg tablet 1 tab PO BID@0700,1200 lisinopril 40 mg tablet 1 tab PO DAILY Discharge Orders: Discharge Order (Routine); Ordered 06/11/22 Ordered By: Lakshmi Augustine Activity on Discharge: As tolerated Stand Alone Forms: Patient Portal Discharge page Care Plan Goals: See below Health Concerns: Atrial fibrillation with rapid ventricular response Plan of Treatment: stop taking metoprolol start taking cardizem 180 mg daily dose of lisinopril was decreased from 40 mg daily to 20 mg daily recommend to stop taking Ritalin if able Call to schedule follow up with cardiology for outpatient ECHO and holter monitor Assessment: See discharge summary Discharge Date/Time: 06/11/22 11:15
--- NOTE | 2022-06-11 11:01 | PC.NURSE ---
pt admitted from ED to [facility]. arrived to unit at approx 0915. VSS. tele SR. denies chest pain, SOB, N/V. no dizziness reported. admission paperwork not completed d/t discharge order placed in system by [id number].
== END 2022-06-11 11:15 | disposition home or self-care (01) | DRG 201 ==
LOC: HO.ED 16:22 → HO.EDOVER 17:08 → HO.IMC 06-11 08:15
PROVIDERS: Nurse Practitioner Family; Admitting Provider Physician Assistant Medical; Emergency Provider Student in an Organized Health Care Education/Training Program; PCP Internal Medicine; Visit Provider Physician Assistant Medical
DX: I48.92 Unspecified atrial flutter (principal); M32.9 Systemic lupus erythematosus, unspecified; I10 Essential (primary) hypertension; F90.9 Attention-deficit hyperactivity disorder, unspecified type; G89.29 Other chronic pain; Z20.822 Contact with and (suspected) exposure to COVID-19; Z96.641 Presence of right artificial hip joint; Z88.5 Allergy status to narcotic agent; Z88.6 Allergy status to analgesic agent; Z88.8 Allergy status to other drugs, medicaments and biological substances; Z79.01 Long term (current) use of anticoagulants; Z79.52 Long term (current) use of systemic steroids; Z79.891 Long term (current) use of opiate analgesic; Z79.899 Other long term (current) drug therapy
CPT/HCPCS: 36415; 71046; 80048; 80053; 82248; 83735; 83880; 84443; 84484; 85025; 85027; 85610; 87635; 93005; 99285

== ENCOUNTER → 2022-07-01 08:21 | Outpatient (REF) | payer OTHER, SELFPAY ==
--- NOTE | 2022-07-01 08:24 | CA_ITS ---
Transthoracic Echocardiogram Patient (Last, First, Middle): Modesto Kirkpatrick F Gender: Male Date of : 1960 Age: 62 Procedure Date: 07/01/2022 Procedure Type: Transthoracic Echocardiogram Location: OP Height: 187.96 cm Weight: 97.52 kg BSA: 2.24 m2 Heart Rate: 55 bpm BP: 140 / 80 mmHg Surveying Crew Rodman: [place] Referring MD: Jamey Garcia MD Symptoms: I48.92 - Unspecified atrial flutter Study Quality: Adequate/Contrast ECG Rhythm: Bradycardia Conclusions: - The left ventricular systolic function is low normal. The visually estimated ejection fraction is between 50-55%. - No obvious valvular pathology seen on this study. - There is mild dilatation of the sinuses of Valsalva measuring 4.50 cm and mild dilatation of the ascending aorta measuring 4.00 cm. Findings Procedure Information Contrast agent, definity, is being given per protocol without apparent complications. Left Ventricle Normal left ventricular cavity size. There is mildly increased left ventricular wall thickness. The left ventricular systolic function is low normal. The visually estimated ejection fraction is between 50-55%. There is no evidence of regional wall motion abnormalities. Diastolic function is normal for age. There is moderate septal asymmetric hypertrophy. Right Ventricle Normal right ventricular cavity size and systolic function. Atria Both atria are normal in size. Aortic Valve The aortic valve was not well visualized. There is no aortic valve stenosis. There is no aortic valve regurgitation. Mitral Valve The mitral valve appears normal. There is trace mitral valve regurgitation. There is no mitral valve stenosis. Pulmonic Valve The pulmonic valve is likely normal. Tricuspid Valve Normal tricuspid valve structure. There is trace tricuspid valve regurgitation. There is no evidence of pulmonary hypertension. Great Vessels There is mild dilatation of the sinuses of Valsalva measuring 4.50 cm and mild dilatation of the ascending aorta measuring 4.00 cm. Venous The inferior vena cava is normal in size and collapses greater than 50% with inspiration. Pericardium/Pleural There is no evidence of pericardial effusion. Prior Study Comparison Changes noted compared to prior study dated: 12/14/2011. Slight change in LVEF. See comment on aorta. Recommendations, Care & Conclusions No obvious valvular pathology seen on this study. Measurements 2D Linear Measurements IVSd: 1.51 0.6-0.9/0.6-1.0 cm LVIDd: 5.15 3.9-5.3/4.2-5.9 cm LVIDd Index: 2.30 2.4-3.2/2.2-3.1 cm/m2 LVIDs: 3.83 2.0-3.6 cm LVPWd: 1.19 0.7-1.1 cm LA Diam: 5.00 2.7-3.8/3.0-4.0 cm LAIDs Index: 2.23 1.5-2.3 cm/m2 LV Mass: 361.03 67-162/88-224 g LV Mass Index: 161.17 43-95/49-115 g/m2 LVOT Diam: 2.50 3.0+(-)1.3 cm 2D Systolic Function EF 4C: 56.30 >55% EF 2C: 52.50 >55% EF BiP: 54.60 >55% Mitral Valve MV Pk E: 0.48 MV PK A: 0.68 MV Decel Time: 326.00 E/A: 0.70 E'Lateral: 8.81 E'Medial: 5.22 E/E' Med: 9.30 E/E' Lat: 5.50 PHT: 96.00 MVA PHT: 2.29 Decel [place]: 1.48 Aortic Valve AoV Pk Pantera: 1.41 AoV Mn Pantera: 0.93 AoV VTI: 0.30 AoV Pk Grad: 8.00 Aov Mn Grad: 4.00 SARAH Cont.VTI: 3.68 LVOT LVOT Pk Pantera: 1.03 LVOT Mn Pantera: 0.73 LVOT VTI: 0.23 LVOT Pk Grad: 4.00 LVOT Mn Grad: 2.00 LVOT Diam: 2.50 LVOT Area: 4.91 Diastolic Function MV Pk E: 0.48 MV Pk A: 0.68 E/A: 0.70 E'Medial: 5.22 E/E' Med: 9.30 E' Laterial: 8.81 E/E' Lat: 5.50 Right Ventricle TAPSE (mm): 25.70 TVS' Pantera: 12.70 Tricuspid Valve TR Pk Pantera: 1.86 TR Pk Grad: 14.00 RA Press: 3.00 RVSP: 17.00 Great Vessels Aorta Sinus of Valsalva: 4.50 2.0-3.5 cm Ao Asc: 4.00 2.1-3.4 cm Pulmonary Valve PV Pk Pantera: 0.94 Peak PV Grad: 4.00 Updated in Other Vendor System with Status of Final Jamey Garcia MD electronically signed on 07/03/2022 12:01:03 PM with status of Final
--- NOTE | 2022-07-01 08:24 | HM_ITS ---
Conclusion: 1. Patient was monitored for total period of 6 days and 3 hours 2. Predominant baseline rhythm is normal sinus rhythm with average heart rate of 74 beats per minute 3. No significant pauses or bradycardia noted next 4. Intermittent episodes of atrial flutter/ fibrillation noted with total burden of 16.2% of total time with longest episode lasting 4 hours and 20 minutes on day 5 4. Total of 3530 PACs accounting for 0.55% of total beats accounting for occasional PACs 5. Total of 2050 PVCs noted accounting for 0.32% total beats accounting for occasional PVCs 6. Total of 4 3 beat mauricio of nonsustained VT noted with fastest at 183 beats per minute 7. Patient reported total of 3 events 1 of which correlated with atrial flutter with rapid ventricular response. MTDD
== END ==
LOC: HO.CARD 08:21
PROVIDERS: Visit Provider Internal Medicine
DX: I48.92 Unspecified atrial flutter (principal)
CPT/HCPCS: 93242; 93306; Q9957

== ENCOUNTER → 2022-10-11 14:14 | Outpatient (BNVA) | payer OTHER, SELFPAY | PROVIDERS: PCP Internal Medicine; Referring Provider Internal Medicine; Visit Provider Internal Medicine | DX: Z13.89 Encounter for screening for other disorder (principal) ==

== ENCOUNTER → 2023-09-29 14:43 | Outpatient (REF) | payer OTHER, SELFPAY ==
--- NOTE | 2023-09-29 14:47 | HM_ITS ---
Conclusion: 1. Patient was monitored for total period of 3 days 2. Baseline was normal sinus rhythm with average heart of 63 beats per minute 3. Frequent episodes of atrial flutter with rapid ventricular response, with fastest heart rate of 168 beats per minute, with total burden of 31.3% with longest episode lasting for hours and 30 minutes 4. No significant pauses noted 5. Occasional PACs and PVCs noted next 6. No patient reported events MTDD
== END ==
LOC: HO.CARD 14:43
PROVIDERS: PCP Internal Medicine; Visit Provider Internal Medicine
DX: R00.2 Palpitations (principal); I48.0 Paroxysmal atrial fibrillation
CPT/HCPCS: 93242

== ENCOUNTER → 2023-09-29 14:47 | Outpatient (BNV) | payer OTHER, SELFPAY | PROVIDERS: PCP Internal Medicine; Visit Provider Internal Medicine Cardiovascular Disease | DX: I48.92 Unspecified atrial flutter (principal) | CPT/HCPCS: 93244 ==

== ENCOUNTER 2023-10-27 07:52 | Emergency (ER) | payer OTHER, SELFPAY ==
--- NOTE | ~2023-10-27 | XR_ITS ---
EXAMINATION: XR FINGER, LEFT CLINICAL INFORMATION: Left index finger pain. COMPARISON: None available. TECHNIQUE: Two views of the left index finger. PA view of the left hand. FINDINGS: Comminuted fracture involving the distal tuft of the second digit distal phalanx. Possibility of subtle intra-articular extension exists on the oblique projection. No significant displacement of fracture fragments. There is associated soft tissue laceration/deformity. XR/XR finger LT min 2V IMPRESSION: Comminuted fracture distal tuft second digit distal phalanx. This could be associated with a crush injury. Advise clinical correlation.
[2023-10-27 07:57] VITALS: BP 160/89; PULSE 96; RESP 18; TEMP 36.3; O2SAT 97; BMI 32.6
[2023-10-27] MEDS: Diphth,Pertus(ACell),Tet Adult 0.5 ML SYRINGE IM (08:27)
[2023-10-27] MEDS: Lidocaine HCl 1 % MPF 5 ML VIAL INFILTRATI (08:28)
[2023-10-27] MEDS: Lidocaine HCl 1 % MPF 5 ML VIAL SUBCUT (08:28)
--- NOTE | 2023-10-27 08:31 | ED.GENADULT ---
HPI - General Adult General Chief complaint: Wound/Laceration Stated complaint: crushed finger Time Seen by Provider: 10/27/23 08:12 Source: patient Mode of arrival: ambulatory Limitations: no limitations History of Present Illness HPI narrative: 63 yold male with pmh of HTN, Paroxysmal atrial fibrillation, atrial flutter, and obstructive sleep apnea presents to the ED for right index laceration since yesterday at 1pm. Patient accidentally hit himself with a hammer. Patient has complete range of motion right index finger pain she has sensation. Patient denies any other trauma. Patient is on Eliquis so he is still bleeding. Patient unknown last tetanus shot. Related Data Home Medications Medication Instructions Recorded Confirmed oxycodone-acetaminophen 7.5 mg-325 1 tab PO TID PRN Pain 06/10/22 10/11/22 mg tablet ergocalciferol (vitamin D2) 1,250 1,250 mcg PO .weekly 10/11/22 10/11/22 mcg (50,000 unit) capsule prednisone 5 mg tablet 5 mg PO DAILY 10/11/22 10/11/22 rivaroxaban 20 mg tablet (Xarelto) 20 mg PO DAILY 10/11/22 10/11/22 Previous Rx's Medication Instructions Recorded diltiazem HCl 180 mg 180 mg PO DAILY 30 days #30 caps 06/11/22 capsule,extended release 24 hr (Cardizem CD) lisinopril 20 mg tablet 20 mg PO DAILY 30 days #30 tabs 06/11/22 amoxicillin 875 mg-potassium 1 tab PO Q12H 10 days #20 tabs 10/27/23 clavulanate 125 mg tablet Allergies Allergy/AdvReac Type Severity Reaction Status Date / Time phenobarbital [PHENOBARBITAL] Allergy Severe RASH, Verified 10/27/23 08:05 blisters codeine [Codeine] Allergy Intermediate NAUSEA/VOMITING, Verified 10/27/23 08:05 GI upset aspirin [Fiorinal] Allergy Unknown hives Verified 10/27/23 08:05 butalbital [Fiorinal] Allergy Unknown hives Verified 10/27/23 08:05 caffeine [Fiorinal] Allergy Unknown hives Verified 10/27/23 08:05 Codeine Sulfate Allergy Unknown nausea and Uncoded 10/11/22 14:17 vomiting Review of Systems Review of Systems: right index finger laceration Yes all other systems are reviewed and are negative [facility] Past Medical History Medical History (Updated 10/27/23 @ 11:33 by JEYSON Chew) JOSHUA (obstructive sleep apnea) HTN (hypertension) Lupus Atrial fibrillation Surgical History H/O thumb surgery H/O shoulder surgery History of total right hip arthroplasty Family History Family History Brother Aneurysm Father Aneurysm Other CAD (coronary artery disease) Social History Social History Alcohol intake: never Patient Tobacco Use Status: Never used Tobacco e-Cigarette/Vaping Use: Currently Using Physical Exam ED Vital Signs: Vital Signs - 24 hr 10/27/23 07:57 10/27/23 10:00 Temperature 97.3 F 98.2 F Pulse Rate 96 51 Respiratory Rate 18 16 Blood Pressure 160/89 H 165/77 H Pulse Oximetry 97 98 Oxygen Delivery Method Room Air Room Air BMI result Body Mass Index 32.6 Const General: cooperative, healthy appearing, comfortable, no acute distress, well developed, alert and awake Orientation/consciousness: oriented to person, oriented to place, oriented to time and patient oriented x3 HENMT Head: Yes normal to inspection, Yes No palpable skull fracture present, Yes normocephalic and Yes atraumatic Eyes General: appearance normal, both eyes and all related structures Neck Neck: Yes normal visual inspection, Yes full ROM, Yes no lymphadenopathy, Yes no meningeal signs, Yes trachea midline, Yes supple, No anterior neck swelling and No tender Chest Chest palpation & inspection: normal inspection of the chest and normal palpation of entire chest wall Resp Effort & Inspection: normal respiratory effort and able to speak in complete sentences Auscultation: clear to auscultation bilaterally Cardio Jugular venous distension: no JVD Heart sounds: S1 normal heart sound present GI Inspection: Yes normal to inspection Palpation (GI): Soft to palpation, not firm, nontender, no guarding and not rigid General: Yes no CVA tenderness Back/Spine/Pelvis Back: no CVA tenderness and No back tenderness Skin General skin exam: no rashes or lesions noted, elasticity normal and turgor normal Neuro General: oriented to person, oriented to place, oriented to time, patient oriented x3, gait normal, tone normal, moves all extremities, Normal light touch and pain sensation, no meningeal signs, no focal motor deficits, CN's II-XI intact bilaterally and normal sensation to monofilament Extrem Other: Patient has complete range of motion of finger. neuro/vascular/motor exam is intact. rest of extremity normal. Psych Appearance: grossly normal, well kempt and not disheveled Medications Administered Discontinued Medications Generic Name Dose Route Start Last Admin Trade Name Freq PRN Reason Stop Dose Admin Diphtheria/Tetanus/Acell Pertussis 0.5 ml 10/27/23 08:13 10/27/23 08:27 Diphth,Pertus(Acell),Tet Adult 0.5 Ml Syringe IM 10/27/23 08:14 0.5 ml .ONCE ONE Administration Cefazolin Sodium 1 gm/ Sodium 50 mls @ 100 mls/hr 10/27/23 08:12 10/27/23 08:58 Chloride IV 10/27/23 08:41 Infused ONCE ONE Infusion Tranexamic Acid 1,000 mg/ 60 mls @ 360 mls/hr 10/27/23 10:54 10/27/23 11:36 Sodium Chloride IV 10/27/23 11:03 360 mls/hr ONCE ONE Administration Lidocaine HCl 5 ml 10/27/23 08:03 10/27/23 08:28 Lidocaine Hcl 1 % Mpf 5 Ml Vial SUBCUT 10/27/23 08:04 5 ml ONCE ONE Administration Lidocaine HCl 5 ml 10/27/23 08:15 10/27/23 08:28 Lidocaine Hcl 1 % Mpf 5 Ml Vial INFILTRATI 10/27/23 08:16 5 ml ONCE ONE Administration Morphine Sulfate 4 mg 10/27/23 09:23 10/27/23 09:46 Morphine Sulfate 4 Mg/Ml Cartridge IVPUSH 10/27/23 09:24 4 mg ONCE ONE Administration Protocol Ondansetron HCl 4 mg 10/27/23 09:23 10/27/23 09:46 Ondansetron Hcl 4 Mg/2 Ml Vial IVPUSH 10/27/23 09:24 4 mg ONCE ONE Administration Medical Decision Making Medical Decision Making MDM Narrative: 63-year-old male with history of atrial flutter AFib on Eliquis presents ED for right index finger laceration caused by a hammer and occurred yesterday around 13:00. She would that ordered. Labs and IV antibiotics ordered. Patient is sent for x-ray. 11:25am: X-ray confirms tuft fracture. Discussed with orthopedic JEYSON Chapa who states loosely close do not take off nailbed. Upon re-evaluation laceration was through bottom of nail and nail bed with bleeding. Due to this partial nail removal was performed and found to have more nail bed lacerations.. For procedure lidocaine digital block 1% 6 mL placed. Able only to place 1 absorbable suture chromic gut size 6 in the nail bed . Continuous bleeding. TXA placed on nail bed. ( Squireted) It was not injected. This drops placed from syringe onto nail bed. Surgicel placed on finger with pressure wrapping. Patient will be discharged with Augmentin. Negative for signs of nerve or tendon injury. Differential Diagnosis Differential Diagnoses: The differential diagnosis associated with the presentation includes (crush injury, tuft fracture,) Admission/Observation Consideration of admission/observation: Escalation of care including admission/observation considered Consult Healthcare Provider Management of the patient was discussed with: [employer] (Oneida BENÍTEZ orthopedic JEYSON) Lab Data MDM Lab Attestation statement: I reviewed the patient's lab results. 10/27/23 08:25 10/27/23 08:25 Labs: Lab Results 10/27/23 Range/Units 08:25 WBC 5.5 (4.8-10.8) X10*3/uL RBC 4.61 (4.60-5.80) X10*6/uL Hgb 14.0 (14.0-18.0) g/dl Hct 42.2 (42.0-52.0) % MCV 91.5 (80.0-98.0) fL MCH 30.4 (27.0-33.0) pg MCHC 33.2 (31.0-36.0) g/dl RDW 12.3 (11.0-16.0) % Plt Count 232 (160-400) X10*3/uL MPV 10.1 (9.4-12.4) fL Immature Gran % (Auto) 0.4 (0.0-0.4) % Neut % (Auto) 47.8 (45-73) % Lymph % (Auto) 37.5 (20-40) % Pettis % (Auto) 10.9 (2-11) % Eos % (Auto) 1.8 (0-4) % Baso % (Auto) 1.6 (0-2) % Lymph # (Auto) 2.1 (1.2-4.9) X10*3/uL Pettis # (Auto) 0.6 (0.1-1.2) X10*3/uL Eos # (Auto) 0.1 (0.0-0.4) X10*3/uL Baso # (Auto) 0.1 (0.0-0.2) X10*3/uL Abs Immat Gran (auto) 0.02 (0.00-0.03) X10*3/uL Absolute Neuts (auto) 2.6 (2.0-8.3) x10*3/uL Absolute Nucleated RBC 0.000 (0.0-0.012) X10*3/uL Nucleated RBC % (auto) 0.0 (0.0-0.2) /100WBC Sodium 141 (135-145) mmol/L Potassium 3.6 (3.3-5.1) mmol/L Chloride 102 (96-108) mmol/L Carbon Dioxide 30 H (22-29) mmol/L Anion Gap 13 (12-20) BUN 11 (9-16) mg/dL Creatinine 1.05 (0.5-1.4) mg/dL Estim Creat Clear Calc 79.3 Estimated GFR > 60 Random Glucose 91 (60-115) mg/dL Calcium 9.7 D (8.4-10.2) mg/dL Independent Interpretation I performed an independent interpretation of an: Plain X-Ray Radiology Impression Discussion of test interpretation with radiology: I have reviewed the radiologist's reading. Independent Historian Clinical information obtained from an independent historian. History obtained from or confirmed by: Other (patient) External Record Review External record reviewed: Other (prior visits) Discharge Plan Discharge Clinical Impression: Closed fracture of tuft of distal phalanx of right index finger, Injury of nail bed of finger of right hand Patient Disposition: Home, Self-Care Instructions: Finger Fracture (ED), Nail Removal (ED) Additional Instructions: You have a distal tuft fracture of the finger. You need follow-up with orthopedic surgery as soon as possible. You will be discharged with antibiotics to prevent infection. Keep gauze wrap dry. Return to ED for redness, fever, chills, profuse bleeding, bluish black discoloration, inability to move finger, numbness/tingling, or any other concerning symptoms. Prescriptions: New amoxicillin-pot clavulanate 875-125 mg tablet 1 tab PO Q12H 10 Days Qty: 20 0RF No Action oxycodone-acetaminophen 7.5-325 mg tablet 1 tab PO TID PRN (Reason: Pain) lisinopril 20 mg tablet 20 mg PO DAILY 30 Days Qty: 30 0RF diltiazem HCl [Cardizem CD] 180 mg capsule,extended release 24hr 180 mg PO DAILY 30 Days Qty: 30 0RF ergocalciferol (vitamin D2) 1,250 mcg (50,000 unit) capsule 1,250 mcg PO .weekly prednisone 5 mg tablet 5 mg PO DAILY Xarelto 20 mg tablet 20 mg PO DAILY Referrals: [facility] Orthopedic Surgeons [Provider Group] (You need follow-up with orthopedic surgeon for re-evaluation of distal tuft fracture of give finger.) Interventions: ED Discharge Assessment Last Done: 10/27/23 11:44 Discharge Date/Time: 10/27/23 11:44 Print Language: Yakut
[2023-10-27 08:32] LABS: MANUAL DIFF FLAG NO
[2023-10-27 08:34] LABS: Basophils Absolute Auto 0.1 X10*3/uL (0.0-0.2); Basophils Percent Auto 1.6 % (0-2); Eosinophils Absolute Auto 0.1 X10*3/uL (0.0-0.4); Eosinophils Percent Auto 1.8 % (0-4); Hematocrit 42.2 % (42.0-52.0); Imm Gran Abs Auto 0.02 X10*3/uL (0.00-0.03); Imm Gran Pct Auto 0.4 % (0.0-0.4); Lymphocytes Absolute Auto 2.1 X10*3/uL (1.2-4.9); Lymphocytes Percent Auto 37.5 % (20-40); Mean Corpuscular HGB Conc 33.2 g/dl (31.0-36.0); Mean Corpuscular Hemoglobin 30.4 pg (27.0-33.0); Mean Corpuscular Volume 91.5 fL (80.0-98.0); Mean Platelet Volume 10.1 fL (9.4-12.4); Monocytes Absolute Auto 0.6 X10*3/uL (0.1-1.2); Monocytes Percent Auto 10.9 % (2-11); Neutrophils Absolute Auto 2.6 x10*3/uL (2.0-8.3); Neutrophils Percent Auto 47.8 % (45-73); Platelet Count 232 X10*3/uL (160-400); Red Blood Count 4.61 X10*6/uL (4.60-5.80); Red Cell Distribution Width 12.3 % (11.0-16.0); White Blood Count 5.5 X10*3/uL (4.8-10.8)
[2023-10-27 08:55] LABS: Anion Gap 13 (12-20); Blood Urea Nitrogen 11 mg/dL (9-16); Calcium 9.7 mg/dL (8.4-10.2); Carbon Dioxide 30 mmol/L (22-29); Chloride 102 mmol/L (96-108); Creatinine Clr Calc Pharmacy 79.3; Estimated Glomerular Filt Rate > 60; Glucose Random 91 mg/dL (60-115); Potassium 3.6 mmol/L (3.3-5.1); Sodium 141 mmol/L (135-145)
[2023-10-27] MEDS: ondansetron HCL 4 MG/2 ML VIAL IVPUSH (09:46)
[2023-10-27] MEDS: Morphine Sulfate 4 MG/ML CARTRIDGE IVPUSH (09:46)
[2023-10-27 10:00] VITALS: BP 165/77; PULSE 51; RESP 16; TEMP 36.8; O2SAT 98
--- NOTE | 2023-10-27 11:24 | MHC.EDTECH ---
pt's left first finger lac was cleaned, cage dressing placed with fair tolerance. provider aware.
[2023-10-27] MEDS: Tranexamic Acid 1,000 MG in 0.9 % Sodium Chloride 50 ML 360 MG IV (11:36)
== END 2023-10-27 11:44 | disposition home or self-care (01) ==
PROVIDERS: Emergency Provider Emergency Medicine; PCP Internal Medicine
DX: S62.630A Displaced fracture of distal phalanx of right index finger, initial encounter for closed fracture (principal); S61.310A Laceration without foreign body of right index finger with damage to nail, initial encounter; W20.8XXA Other cause of strike by thrown, projected or falling object, initial encounter; I10 Essential (primary) hypertension; I48.91 Unspecified atrial fibrillation; Y93.89 Activity, other specified; Y92.9 Unspecified place or not applicable; Y99.9 Unspecified external cause status; Z23 Encounter for immunization
CPT/HCPCS: 12001; 36415; 73140; 80048; 85025; 90471; 90715; 96365; 96375; 99284; J0690; J2270; J2405

== ENCOUNTER 2023-10-31 10:23 | Outpatient (AMB) | payer OTHER, SELFPAY ==
--- NOTE | 2023-10-31 10:29 | A.OFFVIS_ITS ---
Intake Intake Visit Reasons: FC - left index finger fx, DOI 10/26/23 Intake Note: [place] is a 63 year old right hand dominant male who presents today for a evaluation for his left index finger fx, DOI 10/26/23. Patient accidentally hit himself with a hammer. He states that he is feeling well, no pain or discomfort. Denies numbness and tingling. Allergies phenobarbital [PHENOBARBITAL] Allergy (Severe, Verified 10/31/23 10:29) RASH, blisters codeine [Codeine] Allergy (Intermediate, Verified 10/31/23 10:29) NAUSEA/VOMITING, GI upset aspirin [Fiorinal] Allergy (Unknown, Verified 10/31/23 10:29) hives butalbital [Fiorinal] Allergy (Unknown, Verified 10/31/23 10:29) hives caffeine [Fiorinal] Allergy (Unknown, Verified 10/31/23 10:29) hives Codeine Sulfate Allergy (Unknown, Uncoded 10/11/22 14:17) nausea and vomiting HPI FC - left index finger fx, DOI 10/26/23 HPI Details 63-year-old right hand dominant male who presents in the office today, as a new patient, for an evaluation of right index finger laceration. The patient presented to the ED on 10/27/2023 status post a laceration that occurred on 10/26/2023 around 1:00 pm when the patient reports he accidentally hit his right index finger with a hammer. X-rays of the right hand were obtained. The patient underwent a partial nail removal while in the ED. His finger was placed in a pressure wrap and he was prescribed Amoxicillin-pot clavulanate 875-125 mg PO Q12H for 10 days. While in the office today the patient reports he is feeling well with no pain or discomfort. He denies numbness or tingling. Patient has a significant medical history of Afib and is taking Eliquis. [facility] Medical History (Updated 10/31/23 @ 11:44 by Renée Lawton) JOSHUA (obstructive sleep apnea) HTN (hypertension) Lupus Atrial fibrillation Surgical History H/O thumb surgery H/O shoulder surgery History of total right hip arthroplasty Family History Brother Aneurysm Father Aneurysm Other CAD (coronary artery disease) Social History Alcohol intake: never Patient Tobacco Use Status: Never used Tobacco e-Cigarette/Vaping Use: Currently Using Review of Systems Const All systems reviewed & are unremarkable except as noted in HPI and below Physical Exam Const General: cooperative and no acute distress Orientation/consciousness: patient oriented x3 Resp Effort & Inspection: normal respiratory effort and able to speak in complete sentences Cardio Rate: regular rate Peripheral pulses: Peripheral pulses 2+ throughout GI Palpation (GI): Soft to palpation Skin General skin exam: no rashes or lesions noted Lesions: no lesions Rashes: no rashes Neuro General: patient oriented x3 Extrem Other: Left index finger: Nail has been removed. There is granulation tissue over the nail bed area. There is also some clotting material that was placed in the ED and is stuck to the patient?s index finger even after significant amount of soaking. It was difficult to try to remove, but due to the patient being on Eliquis we have left this in place to avoid bleeding. He is able to flex and extend at the PIP, DIP, and CMC. Difficult to assess sensation at this time due to the clotting material that is stuck to the finger. There is pink perfusing tissues surrounding the area. Office Procedures Fracture Care Fracture Billing Code: Fracture Billing Code Assessment & Plan Assessment & Plan (1) Open fracture of phalanx of left index finger: Onset Date: ~10/26/23 Code(s): S62.601B - Fracture of unspecified phalanx of left index finger, initial encounter for open fracture Qualifiers: Encounter type: initial encounter Fracture alignment: nondisplaced Phalanx: distal Qualified Code(s): S62.661B - Nondisplaced fracture of distal phalanx of left index finger, initial encounter for open fracture (2) Crushing injury of left index finger: Onset Date: ~10/26/23 Code(s): S67.191A - Crushing injury of left index finger, initial encounter Qualifiers: Encounter type: initial encounter Qualified Code(s): S67.191A - Crushing injury of left index finger, initial encounter (3) Fracture of phalanx of left index finger: Onset Date: ~10/26/23 Comment: Distal tuft of the second digit distal phalanx Code(s): S62.601A - Fracture of unspecified phalanx of left index finger, initial encounter for closed fracture Qualifiers: Encounter type: initial encounter Fracture alignment: nondisplaced Fracture type: open Phalanx: distal Qualified Code(s): S62.661B - Nondisplaced fracture of distal phalanx of left index finger, initial encounter for open fracture Plan Mr. Kirkpatrick is a 63-year-old right hand dominant male who presents in the office today, as a new patient, for an evaluation of left index finger laceration. The patient presented to the ED on 10/27/2023 status post a laceration that occurred on 10/26/2023 around 1:00 pm when the patient reports he accidentally hit himself with a hammer. X-rays of the left hand were obtained. The patient underwent a partial nail removal while in the ED. His finger was placed in a pressure wrap and he was prescribed Amoxicillin-pot clavulanate 875-125 mg PO Q12H for 10 days. While in the office today the patient reports he is feeling well with no pain or discomfort. He denies numbness or tingling. Patient has a significant medical history of Afib and is taking Eliquis. The patient?s left index finger was significantly soaked while in the office today, however, there is still clotting material on the wound. We have decided to leave this in place due to the patient being on Eliquis. We are going to d ress the area with Bacitracin and Xeroform with dry dressing. The patient was instructed to perform daily dressing changes. 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 The patient was instructed to continue his course of antibiotic until it is completed. He was educated on signs of infection, which are as follows but not limited to erythema, edema, drainage, or warmth. If he is to experience any of these symptoms he is to contact the office immediately or present to the ED. Follow up will be in one week for a wound check, or sooner if needed. X-rays of the left hand, obtained on 10/27/2023, revealed: Comminuted fracture involving the distal tuft of the second digit distal phalanx. Possibility of subtle intra-articular extension exists on the oblique projection. No significant displacement of fracture fragments. There is associated soft tissue laceration/deformity. Patient Instructions: Scribed by Renée Lawton diploma medical assistant, for Sammi Garza LEANNE on 10/31/2023 at 10:30 am, EST. Coding Level of Care Code New Pt Level 4 (88363) Diagnoses Open nondisplaced fracture of distal phalanx of left index finger, initial encounter S62.661B Encounter type: initial encounter Fracture alignment: nondisplaced Phalanx: distal Crushing injury of left index finger, initial encounter S67.191A Encounter type: initial encounter Open nondisplaced fracture of distal phalanx of left index finger, initial encounter S62.661B Encounter type: initial encounter Fracture alignment: nondisplaced Fracture type: open Phalanx: distal CPT Codes Fracture Care - Fracture Billing Code: Fracture Billing Code ([id number])
== END 2023-10-31 11:38 | disposition home or self-care (01) ==
PROVIDERS: PCP Internal Medicine; Visit Provider Physician Assistant
DX: S62.661B Nondisplaced fracture of distal phalanx of left index finger, initial encounter for open fracture (principal); S67.191A Crushing injury of left index finger, initial encounter
CPT/HCPCS: 99204

== ENCOUNTER → 2023-10-31 10:23 | Outpatient (BNVA) | payer OTHER, SELFPAY | PROVIDERS: PCP Internal Medicine; Visit Provider Physician Assistant ==

== ENCOUNTER 2024-01-22 07:17 | Outpatient (REF) | payer OTHER, SELFPAY ==
--- NOTE | ~2024-01-22 | XR_ITS ---
EXAMINATION: XR SHOULDER, RIGHT CLINICAL INFORMATION: Pain in the shoulder. COMPARISON: MRI of the right shoulder December 2017. TECHNIQUE: 3 views of the right shoulder. FINDINGS: Postsurgical changes with suture anchors noted within the humerus related to rotator cuff surgery. The humeral head appears mildly subluxed cephalad. Glenohumeral joint normal. [id number] hypertrophic osteoarthritis of the acromioclavicular joint, unchanged. XR/XR shoulder RT min 2V IMPRESSION: 1. Postsurgical changes. 2. Mild subluxation of the humeral head. 3. Osteoarthritis of the acromioclavicular joint, unchanged.
== END 2024-01-22 07:18 | disposition home or self-care (01) ==
LOC: HO.HOSX 07:17
PROVIDERS: Visit Provider Orthopaedic Surgery
DX: M67.911 Unspecified disorder of synovium and tendon, right shoulder (principal)
CPT/HCPCS: 20610; 73030; J0665; J1100

== ENCOUNTER 2024-01-22 09:22 | Outpatient (AMB) | payer OTHER, SELFPAY ==
--- NOTE | 2024-01-22 09:26 | A.OFFVIS_ITS ---
Vital Signs 01/22/24 09:28 01/22/24 09:32 Height 5 ft 8 in 5 ft 8 in Weight 214 lb 214 lb BMI 32.5 32.5 Intake Visit Reasons: newprob- RT shoulder pain Intake Note: [place] is a 63 year old right hand dominant male who presents today for a new problem visit with complaints of right shoulder pain. Patient reports that his pain onset about 1 months ago when he was hammering overhead. Denies numbness and tingling. Hx of RT RTC REPAIR, DOS 01/24/18 Interested in an injection, these were helpful in the past Allergies phenobarbital [PHENOBARBITAL] Allergy (Severe, Verified 10/31/23 10:29) RASH, blisters codeine [Codeine] Allergy (Intermediate, Verified 10/31/23 10:29) NAUSEA/VOMITING, GI upset aspirin [Fiorinal] Allergy (Unknown, Verified 10/31/23 10:29) hives butalbital [Fiorinal] Allergy (Unknown, Verified 10/31/23 10:29) hives caffeine [Fiorinal] Allergy (Unknown, Verified 10/31/23 10:29) hives Codeine Sulfate Allergy (Unknown, Uncoded 10/11/22 14:17) nausea and vomiting HPI HPI newprob- RT shoulder pain: Details: [place] is a 63 year old right hand dominant male who presents today for a new problem visit with complaints of right shoulder pain. Patient reports that his pain onset about 1 months ago when he was hammering overhead. Denies numbness and tingling. Hx of RT RTC REPAIR, DOS 01/24/18. At that time he had an unrepairable subscapularis tear. Now he describes pain with sleeping and overhead motion. [facility] Medical History (Updated 01/22/24 @ 12:10 by Dong Forrester MD) JOSHUA (obstructive sleep apnea) HTN (hypertension) Lupus Atrial fibrillation Surgical History H/O thumb surgery H/O shoulder surgery History of total right hip arthroplasty Family History Brother Aneurysm Father Aneurysm Other CAD (coronary artery disease) Social History Alcohol intake: never Patient Tobacco Use Status: Never used Tobacco e-Cigarette/Vaping Use: Currently Using Physical Exam Vital Signs: BMI result Body Mass Index 32.5 Extrem Other: 4/+5 strength right EC 4-/5 strength left EC + maynard and Neer on the right + lift off Office Procedures Joint Injection/Drain Joint Injection/Drain Details: Injected 1 mL of Decadron and 3 mL 1% lidocaine and 3 mL of 0.25% Marcaine. Site was prepped using aseptic technique. Patient tolerated the procedure well. Primary Site: right shoulder Approach Used: posterolateral Coding - Large joint Procedure code (CPT) selection complete Results Reviewed Results Reviewed: I personally reviewed relevant radiographs. Right shoulder s/p right RTC repair ? high riding Otherwise unremarkable Assessment & Plan Assessment & Plan (1) Dysfunction of right rotator cuff: Code(s): M67.911 - Unspecified disorder of synovium and tendon, right shoulder Category: Medical Plan: I discussed findings and injected right shoulder May follow up as needed Orders: Orders XR shoulder RT min 2V Today M25.519 - Pain in unspecified shoulder Coding Level of Care Code Est Pt Level 3 (73172) Diagnoses Dysfunction of right rotator cuff M67.911 CPT Codes Coding - Large joint: 04019 - Large joint ([id number])
[2024-01-22 09:28] VITALS: BMI 32.5
[2024-01-22 09:32] VITALS: BMI 32.5
== END 2024-01-22 12:01 | disposition home or self-care (01) ==
PROVIDERS: PCP Internal Medicine; Visit Provider Orthopaedic Surgery
DX: M67.911 Unspecified disorder of synovium and tendon, right shoulder (principal)
CPT/HCPCS: 20610; 99213

== ENCOUNTER 2024-10-03 09:07 | Outpatient (AMB) | payer OTHER, SELFPAY ==
--- NOTE | 2024-10-03 09:09 | MHC.OFFVIS ---
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 Required: No Accompanied by: Self / Same As Patient Allergies phenobarbital [PHENOBARBITAL] Allergy (Severe, Verified 10/31/23 10:29) RASH, blisters codeine [Codeine] Allergy (Intermediate, Verified 10/31/23 10:29) NAUSEA/VOMITING, GI upset aspirin [Fiorinal] Allergy (Unknown, Verified 10/31/23 10:29) hives butalbital [Fiorinal] Allergy (Unknown, Verified 10/31/23 10:29) hives caffeine [Fiorinal] Allergy (Unknown, Verified 10/31/23 10:29) hives Codeine Sulfate Allergy (Unknown, Uncoded 10/11/22 14:17) nausea and vomiting Medication List - Last Reconciled 10/03/24 by Jamey Garcia MD diltiazem HCl CD (Cardizem CD) 180 mg PO DAILY 30 days metoprolol succinate ER 50 mg PO DAILY oxycodone-acetaminophen 7.5-325 mg 1 tab PO TID PRN prednisone 5 mg PO DAILY rivaroxaban (Xarelto) 20 mg PO DAILY HPI Comments Details: Hanna returns for follow-up. In the past, he has been admitted for atrial flutter with rapid rates. We have not seen him in almost 2 years. He states that he really does not feel when he gets atrial flutter but sometimes can feel some irregularity. Apparently he was at the PCP's office yesterday and they told him that he was having an irregular rhythm. Otherwise, he can ride his bike about 10 miles or so per day with no issues. Strong family history of coronary disease in his father. Brother also had cardiac issues but he was apparently almost 400 lb+. 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 [facility] Medical History (Updated 10/03/24 @ 09:25 by Jamey Garcia MD) JOSHUA (obstructive sleep apnea) HTN (hypertension) Lupus Atrial fibrillation Surgical History H/O thumb surgery H/O shoulder surgery History of total right hip arthroplasty Family History Brother Aneurysm Father Aneurysm Other CAD (coronary artery disease) Social History Alcohol intake: never Patient Tobacco Use Status: Never used Tobacco e-Cigarette/Vaping Use: Currently Using Review of Systems Const Denies chills, Denies fatigue, Denies fever(s), Denies frequent falls, Denies weakness, Denies weight gain and Denies weight loss ENT Denies dizziness Card Denies chest pain, Denies leg edema, Denies lightheadedness, Denies palpitations, Denies dyspnea and Denies dyspnea on exertion Resp Denies cough, Denies dyspnea and Denies dyspnea on exertion GI Denies hematochezia Musc Denies abnormal gait, Denies muscle weakness, Denies numbness, Denies radiating pain into limb and Denies tingling Neuro Denies abnormal gait, Denies dizziness, Denies frequent falls, Denies numbness, Denies tingling and Denies weakness Endo Denies fatigue and Denies palpitations Physical Exam Vital Signs: Last Vital Signs Pulse 61 10/03/24 09:10 BP 140/66 H 10/03/24 09:10 BMI result Body Mass Index 32.6 Const General: comfortable and no acute distress Orientation/consciousness: patient oriented x3 HEENT Other: Unremarkable Head: Yes normal to inspection Neck Neck: Yes normal visual inspection Chest Chest palpation & inspection: normal inspection of the chest Resp Auscultation: clear to auscultation bilaterally Cardio Palpation: normal PMI Heart sounds: S1 normal heart sound present, S2 normal heart sound present, no gallops, no murmurs and no rubs GI Palpation (GI): Soft to palpation Back/Spine/Pelvis Other: unremarkable Skin General skin exam: no rashes or lesions noted Neuro General: patient oriented x3 Extrem General: Yes normal to inspection Psych Mental Status: mental status grossly normal Office Procedures EKG Details: EKG with underlying sinus rhythm at 61/Min; no significant ST-T changes; [place]. [address]-[id number], Complete Assessment & Plan Assessment & Plan (1) Atrial flutter by electrocardiogram: Code(s): I48.92 - Unspecified atrial flutter Category: Medical (2) HTN (hypertension): Code(s): I10 - Essential (primary) hypertension Category: Medical (3) JOSHUA (obstructive sleep apnea): Code(s): G47.33 - Obstructive sleep apnea (adult) (pediatric) Category: Medical Plan EKGs in the past have shown atrial flutter with rapid rate. In the Holter from last year, underlying rhythm was sinus but he had atrial flutter burden of almost 31% with rates as much as 168/Min. In 2021, echocardiogram showed low normal LVEF, 50-55%. Ascending aortic size 4 cm. Atria described in normal in size. Overall, he has a significant atrial flutter burden but symptoms are not profound. He is already on diltiazem/metoprolol. I do believe he is a good candidate for ablation and will benefit from EP evaluation. We will refer him for the same. He can continue Xarelto without changes. We will repeat his testing including echocardiogram for atrial size/LV function/ascending aortic size. Repeat his Holter monitor. He is also interested in coronary evaluation as his father had coronary event in his 40s. Hence coronary CTA. Unlikely that the patient will be able to reach target heart rate on a stress test due to rate controlling agents. Otherwise, there is a history of sleep apnea but he does not use CPAP. He believes he lost lot of weight and hence he does not have sleep apnea anymore. Follow-up after the above. Orders: Orders ECG 7 day holter monitor Today I48.92 - Unspecified atrial flutter CA echo transthoracic complete Today I48.92 - Unspecified atrial flutter CT Cardiac Coronary Angio Today I25.10 - Atherosclerotic heart disease of [place] coronary artery without angina pectoris, I48.92 - Unspecified atrial flutter Basic Metabolic Panel Today I48.92 - Unspecified atrial flutter Referrals Cardiac Electrophysiology Referral I48.92 - Unspecified atrial flutter Coding Level of Care Code Est Pt Level 4 (41512) Diagnoses Atrial flutter by electrocardiogram I48.92 HTN (hypertension) I10 JOSHUA (obstructive sleep apnea) G47.33 CPT Codes EKG - CPT: 51610-[id number], Complete ([id number])
[2024-10-03 09:10] VITALS: BP 140/66; PULSE 61; BMI 32.6
== END 2024-10-03 10:10 | disposition home or self-care (01) ==
PROVIDERS: PCP Internal Medicine; Visit Provider Internal Medicine
DX: I48.92 Unspecified atrial flutter (principal); I10 Essential (primary) hypertension; G47.33 Obstructive sleep apnea (adult) (pediatric)
CPT/HCPCS: 93010; 99214

== ENCOUNTER → 2024-10-03 09:07 | Outpatient (BNVA) | payer OTHER, SELFPAY | PROVIDERS: PCP Internal Medicine; Visit Provider Internal Medicine | DX: I48.92 Unspecified atrial flutter (principal); I10 Essential (primary) hypertension; G47.33 Obstructive sleep apnea (adult) (pediatric); Z79.01 Long term (current) use of anticoagulants; Z79.899 Other long term (current) drug therapy | CPT/HCPCS: 93005 ==

== ENCOUNTER 2024-10-09 07:45 | Outpatient (REF) | payer OTHER, SELFPAY ==
--- OUTSIDE RECORDS SUMMARY | 2024-10-09 07:48 | XMS_ITS | Clinical Summary ---
Author Organization [facility] Address [address] [place] [address] Care Team Providers Care Transporter Radiology Name Role Phone Sebastien Lipscomb MD Primary Care Provider Social History Tobacco Use Types Packs/Day Years Used Date Smoking Tobacco: Never Assessed Sex and Gender Information Value Date Recorded Sex Assigned at Not on file Gender Identity Not on file Sexual Orientation Not on file Plan of Treatment Health Maintenance Due Date Last Done Comments DTaP,Tdap,and Td Vaccines (1 - Tdap) 1977 Zoster Vaccines (1 of 2) 2008 Pneumococcal Vaccine: 65+ Ye ars (1 of 1 - PCV) 2023 COVID-19 Vaccine ( - 2023-2 5 season) 2024 Influenza Vaccine (#1) 2024 RSV Immunization Patients 60 + Years Old (1 - 1-dose 75+ series) 2033 HIB Vaccines Aged Out No longer eligi ble based on patient's age to complete this topic HPV Vaccines Aged Out No longer eligi ble based on patient's age to complete this topic Hepatitis A Vaccines Aged Out No long er eligible based on patient's age to complete this topic Hepatitis B Vaccines Aged Out No long er eligible based on patient's age to complete this topic IPV Vaccines Aged Out No longer eligi ble based on patient's age to complete this topic MMR Vaccines Aged Out No longer eligi ble based on patient's age to complete this topic Meningococcal ACWY Vaccine Aged Out N o longer eligible based on patient's age to complete this topic RSV Immunization Patients Un lilli 20 months Aged Out No longer eligible b ased on patient's age to complete this topic Varicella Vaccines Aged Out No longer eligible based on patient's age to complete this topic Care Teams Transporter Radiology Relationship Specialty Start Date End Date Sebastien Lipscomb MD [address] [place] [address] NICHOL Obrien PCP - General Internal Medicine 05/23/19
[2024-10-09 10:48] LABS: MANUAL DIFF FLAG NO
[2024-10-09 10:53] LABS: Basophils Percent Auto 0.1 % (0-2); Eosinophils Percent Auto 0.1 % (0-4); Hematocrit 43.1 % (42.0-52.0); Hemoglobin 14.4 g/dl (14.0-18.0); Imm Gran Abs Auto 0.03 X10*3/uL (0.00-0.03); Imm Gran Pct Auto 0.3 % (0.0-0.4); Lymphocytes Absolute Auto 2.7 X10*3/uL (1.2-4.9); Mean Corpuscular HGB Conc 33.4 g/dl (31.0-36.0); Mean Corpuscular Hemoglobin 30.4 pg (27.0-33.0); Mean Corpuscular Volume 91.1 fL (80.0-98.0); Mean Platelet Volume 10.9 fL (9.4-12.4); Monocytes Absolute Auto 0.9 X10*3/uL (0.1-1.2); Monocytes Percent Auto 9.4 % (2-11); Neutrophils Absolute Auto 5.5 x10*3/uL (2.0-8.3); Neutrophils Percent Auto 60.1 % (45-73); Platelet Count 284 X10*3/uL (160-400); Red Blood Count 4.73 X10*6/uL (4.60-5.80); Red Cell Distribution Width 12.4 % (11.0-16.0); White Blood Count 9.1 X10*3/uL (4.8-10.8)
[2024-10-09 11:08] LABS: Alanine Aminotransferase 57 U/L (0-40); Albumin Level 4.1 g/dL (3.5-5.0); Alkaline Phosphatase 68 U/L (39-117); Anion Gap 9 (12-20); Aspartate Amino Transferase 26 U/L (5-37); Bilirubin Total 0.6 mg/dL (0.0-1.0); Blood Urea Nitrogen 24 mg/dL (9-16); Calcium 9.7 mg/dL (8.4-10.2); Carbon Dioxide 29 mmol/L (22-29); Chloride 104 mmol/L (96-108); Cholesterol 252 mg/dL (<200); Estimated Glomerular Filt Rate > 60; Glucose Fasting 100 mg/dL (60-99); HDL Cholesterol 68 mg/dL (>40); LDL Cholesterol Calculated 161 mg/dL (<100); Potassium 4.1 mmol/L (3.3-5.1); Sodium 138 mmol/L (135-145); Total Protein 7.4 g/dL (6.5-8.0); Triglycerides 119 mg/dL (<150)
== END 2024-10-09 07:46 | disposition home or self-care (01) ==
LOC: HO.HMGCLDS 07:45
PROVIDERS: PCP Internal Medicine; Visit Provider Internal Medicine
DX: R53.83 Other fatigue (principal); E78.5 Hyperlipidemia, unspecified
CPT/HCPCS: 36415; 80053; 80061; 85025

== ENCOUNTER → 2024-10-23 08:53 | Outpatient (BNV) | payer OTHER, SELFPAY | PROVIDERS: PCP Internal Medicine; Visit Provider Internal Medicine Cardiovascular Disease | DX: I49.1 Atrial premature depolarization (principal); I49.3 Ventricular premature depolarization | CPT/HCPCS: 93244 ==

== ENCOUNTER 2024-11-13 08:39 | Outpatient (AMB) | payer OTHER, SELFPAY ==
--- NOTE | 2024-11-13 08:41 | MHC.OFFVIS ---
Vital Signs 11/13/24 08:42 Height 5 ft 8 in Weight 215 lb 9.793 oz BMI 32.8 BP 104/58 L Blood Pressure Location Lt brachial Position Sitting Pulse 57 Pulse Source Pulse Oximeter Intake Visit Reasons: F/U Holter Medical Education Specialist Required: No Accompanied by: Self / Same As Patient Allergies phenobarbital [PHENOBARBITAL] Allergy (Severe, Verified 10/31/23 10:29) RASH, blisters codeine [Codeine] Allergy (Intermediate, Verified 10/31/23 10:29) NAUSEA/VOMITING, GI upset aspirin [Fiorinal] Allergy (Unknown, Verified 10/31/23 10:29) hives butalbital [Fiorinal] Allergy (Unknown, Verified 10/31/23 10:29) hives caffeine [Fiorinal] Allergy (Unknown, Verified 10/31/23 10:29) hives Codeine Sulfate Allergy (Unknown, Uncoded 10/11/22 14:17) nausea and vomiting Medication List - Last Reconciled 11/13/24 by Jamey Garcia MD atorvastatin 20 mg PO QPM diltiazem HCl CD (Cardizem CD) 180 mg PO DAILY 30 days metoprolol succinate ER 100 mg PO DAILY oxycodone-acetaminophen 7.5-325 mg 1 tab PO TID PRN prednisone 5 mg PO DAILY rivaroxaban (Xarelto) 20 mg PO DAILY HPI Comments Details: [place] returns for follow-up. In the past, he has been admitted for atrial flutter with rapid rates. Recently at PCP office and they told him that he was having an irregular rhythm. Otherwise, he can ride his bike about 10 miles or so per day with no issues. Strong family history of coronary disease in his father. Brother also had cardiac issues but he was apparently almost 400 lb+. 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 Since last seen, completed cardiac workup including echocardiogram, coronary CTA, Holter. [facility] Medical History (Updated 11/13/24 @ 09:49 by Jamey Garcia MD) JOSHUA (obstructive sleep apnea) HTN (hypertension) Lupus Atrial fibrillation Surgical History H/O thumb surgery H/O shoulder surgery History of total right hip arthroplasty Family History Brother Aneurysm Father Aneurysm Other CAD (coronary artery disease) Social History Alcohol intake: never Patient Tobacco Use Status: Never used Tobacco e-Cigarette/Vaping Use: Currently Using Review of Systems Const Denies chills, Denies fatigue, Denies fever(s), Denies weight gain and Denies weight loss ENT Denies dizziness Card Denies chest pain, Denies leg edema, Denies lightheadedness, Denies palpitations, Denies dyspnea on exertion, Denies orthopnea and Denies other Resp Denies cough and Denies dyspnea on exertion GI Denies hematochezia and Denies change in stool character Musc Denies abnormal gait, Denies muscle weakness, Denies numbness, Denies radiating pain into limb and Denies tingling Neuro Denies abnormal gait, Denies dizziness, Denies numbness and Denies tingling Endo Denies fatigue and Denies palpitations Physical Exam Vital Signs: Last Vital Signs Pulse 57 11/13/24 08:42 BP 104/58 L 11/13/24 08:42 BMI result Body Mass Index 32.8 Const General: comfortable and no acute distress Orientation/consciousness: patient oriented x3 HEENT Other: Unremarkable Head: Yes normal to inspection Neck Neck: Yes normal visual inspection Chest Chest palpation & inspection: normal inspection of the chest Resp Auscultation: clear to auscultation bilaterally Cardio Palpation: normal PMI Heart sounds: S1 normal heart sound present, S2 normal heart sound present, no gallops, no murmurs and no rubs GI Palpation (GI): Soft to palpation Back/Spine/Pelvis Other: unremarkable Skin General skin exam: no rashes or lesions noted Neuro General: patient oriented x3 Extrem General: Yes normal to inspection Psych Mental Status: mental status grossly normal Assessment & Plan Assessment & Plan (1) Atrial flutter by electrocardiogram: Code(s): I48.92 - Unspecified atrial flutter Category: Medical (2) PAF (paroxysmal atrial fibrillation): Code(s): I48.0 - Paroxysmal atrial fibrillation Category: Medical (3) Atherosclerotic cardiovascular disease: Code(s): I25.10 - Atherosclerotic heart disease of [place] coronary artery without angina pectoris Category: Medical (4) HTN (hypertension): Code(s): I10 - Essential (primary) hypertension Category: Medical (5) JOSHUA (obstructive sleep apnea): Code(s): G47.33 - Obstructive sleep apnea (adult) (pediatric) Category: Medical Plan Cardiac studies reviewed. In the echocardiogram, LVEF 55-60%. Mild septal hypertrophy. Severely dilated left atrium. Calcific aortic/ mitral valve changes. Ascending aortic size 4 cm. In the coronary CTA, overall, moderate coronary disease burden, Mostly in the LAD, diagonal and RCA. Minimal disease in the left main, circumflex and OM1. in the Holter monitor, underlying rhythm is sinus with an average rate of 67/min. Intermittent atrial fibrillation with a burden of 33%. Longest episode 17 hours with the fastest rate of 174/Min. NSVT also noted. Longest 6 beats. In the previous Holter, frequent atrial flutter with a burden of 31%. We discussed about the findings in great detail. With regard to the atrial flutter / fibrillation, we have gone up on the beta-alvarez dosing. He is also on diltiazem. EP appointment is coming up. Recommend ablation. Continue Anticoagulation. With regard to the coronary disease, he has got no anginal-type symptoms. He is already on beta-blockers. statins have been started. We will gradually uptitrate. Follow-up lipids in due course. Otherwise, there is a history of sleep apnea but he does not use CPAP. He believes he lost lot of weight and hence he does not have sleep apnea anymore. EP appointment is coming up. We will follow him up after that. Advised to avoid strenuous exertion due to arrhythmias As well as coronary disease. He understands that. Medications: New metoprolol succinate ER 100 mg PO DAILY 90 tabs 3RF Coding Level of Care Code Est Pt Level 4 (41658) Complex EM visit Add On G2211 Diagnoses Atrial flutter by electrocardiogram I48.92 PAF (paroxysmal atrial fibrillation) I48.0 Atherosclerotic cardiovascular disease I25.10 HTN (hypertension) I10 JOSHUA (obstructive sleep apnea) G47.33
[2024-11-13 08:42] VITALS: BP 104/58; PULSE 57; BMI 32.8
--- OUTSIDE RECORDS SUMMARY | 2024-11-13 09:17 | XMS_ITS | Clinical Summary ---
Author Organization [facility] Address [address] [place] [address] Care Team Providers Care Tobacco Warehouse Agent Name Role Phone Sebastien Lipscomb MD Primary Care Provider [phone] Social History Tobacco Use Types Packs/Day Years Used Date Smoking Tobacco: Never Assessed Sex and Gender Information Value Date Recorded Sex Assigned at Not on file Legal Sex Male 5:06 PM EST Gender Identity Not on file Sexual Orientation Not on file Plan of Treatment Health Maintenance Due Date Last Done Comments DTaP,Tdap,and Td Vaccines (1 - Tdap) 1977 Pneumococcal Vaccine: 50+ Ye ars (1 of 1 - PCV) 2008 Zoster Vaccines (1 of 2) 2008 COVID-19 Vaccine ( - 2023-2 5 season) [...] patient's age to complete this topic Meningococcal B Vacine Aged Out No lo nger eligible based on patient's age to complete this topic RSV Immunization Patients Un lilli 20 months Aged Out No longer eligible b ased on patient's age to complete this topic Varicella Vaccines Aged Out No longer eligible based on patient's age to complete this topic Care Teams Tobacco Warehouse Agent Relationship Specialty Start Date End Date Sebastien Lipcsomb MD [address] Leslie Obrien MA PCP - General Internal Medicine 05/23/19
== END 2024-11-13 09:03 | disposition home or self-care (01) ==
PROVIDERS: PCP Internal Medicine; Visit Provider Internal Medicine
DX: I48.92 Unspecified atrial flutter (principal); I48.0 Paroxysmal atrial fibrillation; I25.10 Atherosclerotic heart disease of native coronary artery without angina pectoris; I10 Essential (primary) hypertension; G47.33 Obstructive sleep apnea (adult) (pediatric)
CPT/HCPCS: 99214

== ENCOUNTER → 2024-11-13 08:39 | Outpatient (BNVA) | payer OTHER, SELFPAY | PROVIDERS: PCP Internal Medicine; Visit Provider Internal Medicine ==

== ENCOUNTER 2025-02-03 09:11 | Outpatient (AMB) | payer OTHER, SELFPAY ==
[2025-02-03 09:19] VITALS: BP 142/68; PULSE 66; RESP 14; TEMP 36.8; O2SAT 98; BMI 27.9
--- NOTE | 2025-02-03 09:19 | MHC.PC.OV ---
Vital Signs 02/03/25 09:19 Height 6 ft 2 in Weight 217 lb BMI 27.9 BP 142/68 H Respiration 14 Pulse 66 Pulse Source Pulse Oximeter Temp 98.2 F Temp Source Temporal Artery Scan Pulse Oximetry (%) 98 Oxygen Delivery Method Room Air Intake Visit Reasons: establish care Food Taster Required: No Accompanied by: Self / Same As Patient Allergies phenobarbital [PHENOBARBITAL] Allergy (Severe, Verified 02/03/25 10:29) RASH, blisters codeine [Codeine] Allergy (Intermediate, Verified 02/03/25 10:29) NAUSEA/VOMITING, GI upset aspirin [Fiorinal] Allergy (Unknown, Verified 02/03/25 10:29) hives butalbital [Fiorinal] Allergy (Unknown, Verified 02/03/25 10:29) hives caffeine [Fiorinal] Allergy (Unknown, Verified 02/03/25 10:29) hives Codeine Sulfate Allergy (Unknown, Uncoded 02/03/25 10:29) nausea and vomiting Medication List - Last Reconciled 02/03/25 by Marylu Stauffer PA-C atorvastatin 20 mg PO QPM diltiazem HCl CD (Cardizem CD) 180 mg PO DAILY 30 days epinephrine mL IM oxycodone 10 mg PO QID PRN 30 days prednisone 5 mg PO DAILY rivaroxaban (Xarelto) 20 mg PO DAILY Tobacco use date assessed: 02/03/25 Fall risk assessment: No Falls in past year Last assessed Fall Risk: 02/03/25 Dental Screening Dental Screen Date: 02/03/25 Did you have a dental visit in the last 12 months?: Yes Did you have a dental problem in the last 6 months where you did not have access to dental care?: No Was dental information given to patient?: Patient has dentist (patient has dentures) HPI establish care HPI Details The patient is a 64-year-old male presenting to establish [facility] primary care and manage his chronic conditions. He reports having undergone a cardiac ablation one month prior at [facility] for atrial fibrillation. At his previous visit, atrial fibrillation was detected despite the patient having previously been asymptomatic with a history of high blood pressure. The patient was started on medications by his seal delivery vehicle officer, but it was determined that ablation was the optimal route. Post-ablation, the patient notices he is less fatigued but experiences episodes of feeling exhausted midday, requiring rest. He notes a previous history of being treated for hypertension, which included lisinopril although this was discontinued due to bruising the patient was having. He is currently on Cardizem 180 mg daily prescribed by Dr. Garcia the seal delivery vehicle officer. The patient has a history of chronic pain attributable to three bulging discs with ongoing symptoms despite trials of physical therapy and utilization of a TENS unit. He is on a regimen of Percocet, recently increased to 10 mg 4 times a day by Dr. Lipscomb his prior primary care per patient due to insufficient pain control. The patient expresses interest in switching to a formulation without Tylenol due to concerns about cumulative daily dosage. His pain management has an intricate history, including right hip replacement and bilateral shoulder surgeries, leading to limitations in certain activities. The patient also describes a history of ADHD previously managed with Adderall, which was discontinued due to cardiac concerns. He is considering the option to restart medication pending cardiology clearance at an upcoming appointment. Additionally, he has been advised by a prior provider about diet-controlled cholesterol, although he has since been prescribed Lipitor. He queries about the potential for reducing or stopping this medication upon subsequent testing. 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 - Non-recreational involvement in physical labor, including tasks like dismantling a pergola, suggests a relatively sedentary risk lifestyle with bursts of activity. - No notable concerns regarding housing or nutritional intake were discussed. [facility] Medical History (Updated 02/03/25 @ 10:33 by Marylu Stauffer PA-C) Encounter for colorectal cancer screening using Cologuard test ADHD Atrial fibrillation Establishing care with new doctor, encounter for Chronic pain JOSHUA (obstructive sleep apnea) HTN (hypertension) Lupus Surgical History (Updated 02/03/25 @ 10:32 by Marylu Stauffer PA-C) History of cardiac ablation for atrial fibrillation (~12/2024) H/O thumb surgery H/O shoulder surgery History of total right hip arthroplasty Family History Brother Aneurysm Father Aneurysm Other CAD (coronary artery disease) Social History Housing: House Alcohol intake: never Patient Tobacco Use Status: Never used Tobacco e-Cigarette/Vaping Use: Currently Using Substance Use Type: Marijuana service: No Current occupational status: employed Cognitive needs: No Hearing needs: No Vision needs: Yes (reading glasses) Questionnaire PHQ-9 Over the last 2 weeks, how often have you been bothered by any of the following problems? 1. Little interest or pleasure in doing things: not at all 2. Feeling down, depressed, or hopeless: not at all 3. Trouble falling or staying asleep, or sleeping too much: not at all 4. Feeling tired or having little energy: not at all 5. Poor appetite or overeating: not at all 6. Feeling bad about yourself - or that you are a failure or have let yourself or your family down: not at all 7. Trouble concentrating on things, such as reading the newspaper or watching television: not at all 8. Moving or speaking so slowly that other people could have noticed. Or the opposite - being so fidgety or restless that you have been moving around a lot more than usual: not at all 9. Thoughts that you would be better off or of hurting yourself in some way: not at all Total score: 0 Depression Screening Interpretation: Negative Depression Screening Done: Yes 20651 - PHQ-9 Billing: Yes Source: Developed by Drs. Gab Panda, Cheyanne Fabian, Wilder Cunningham and colleagues, with an educational kirby from [employer]. Thrive Questionnaire Date Thrive assessed: 02/03/25 I am a: Patient What is your living situation today?: I have a steady place to live Within the past 12 months, did the food you bought not last and you didn't have the money to get more?: Never true Within the past 12 months, did you worry whether your food would run out before you got money to buy more?: Never true Do you have trouble paying for medicines?: No Do you have trouble getting transportation to medical appointments?: No Do you have trouble paying your heating and electricity bill?: No Do you have trouble taking care of your child, family member or friend?: No Do you have trouble with day-to-day activities such as bathing, preparing meals, shopping, managing finances, etc.?: No Are you currently unemployed and looking for a job?: No Are you interested in more education?: No Please select the resources that you would like help with: None THRIVE Score: 0 AUDIT C Alcohol Use Questionnaire (AUDIT-C) 1. How often do you have a drink containing alcohol?: Never 3. How often do you have six or more drinks on one occasion?: Never Total Score: 0 Score Reviewed/Action Taken: No EM-7 AMB Questionnaire EM-7 Date EM - 7 assessed: 02/03/25 Feeling nervous, anxious, or on edge: 0 = Not at all Not being able to stop or control worryin = Not at all Worrying too much about different things: 0 = Not at all Trouble relaxin = Not at all Being so restless that it is hard to sit still: 0 = Not at all Becoming easily annoyed or irritable: 0 = Not at all Feeling afraid as if something awful might happen: 0 = Not at all Total EM-7 score (0-4 normal; 5-9 mild; 10-14 moderate; 15-21 severe): 0 Source: Developed by Drs. Gab Panda, Cheyanne Fabian, Wilder Cunningham and colleagues, with an educational kirby from [employer]. EM-7 Assessment Billing EM-7 Assessment Tool: EM-7 Assessment 65387 Review of Systems Const Details: - Cardiovascular: Reports history of atrial fibrillation, hypertension; No current chest pain or palpitation. - Musculoskeletal: Reports chronic back pain due to bulging discs; Noted shoulder and hip replacement surgeries. - Neurological: Reports history of ADHD. - Respiratory: Denies shortness of breath. - Gastrointestinal: Denies bloody or black stools. - Genitourinary: Reports urgency sometimes. - General: Reports increased fatigue post-ablation. - Hematologic: Reports history of easy bruising, suspect related to Lisinopril usage. Physical exam (Primary Care) Vital Signs: Last Vital Signs Temp 98.2 F 02/03/25 09:19 Pulse 66 02/03/25 09:19 Resp 14 02/03/25 09:19 BP 142/68 H 02/03/25 09:19 Pulse Ox 98 02/03/25 09:19 Oxygen Delivery Method Room Air 02/03/25 09:19 Care Plan Goal for BP management: <140/90 BMI result Body Mass Index 27.9 BMI Assessment/Plan discussion: High BMI High, discussed plan: lifestyle, weight reduction, dietary, physical activity and alcohol moderation Tobacco/Smoking Status: Tobacco use Status Tobacco use date assessed 02/03/25 02/03/25 09:29 Patient Tobacco Use Status Never used Tobacco 02/03/25 09:29 e-Cigarette/Vaping Use Currently Using 02/03/25 09:29 PHQ-9: PHQ-9 Score PHQ-9: Total score 0 02/03/25 09:29 Depression Screening Interpretation: Negative Thrive Assessment: Date of Thrive Assessment Date Thrive assessed 02/03/25 02/03/25 09:29 Const Other: Appearance: Alert. Oriented X3. No acute distress. Head: Normal external exam. Normocephalic. Atraumatic. Eyes: Pupils are equal, round, and reactive to light. Extraocular movements intact. Conjunctiva and sclera normal. Eyelids normal. Ears: External auditory canal normal. Tympanic membranes normal. Throat: Pharynx normal. Uvula midline. Moist mucous membranes. Neck: Normal inspection. Neck supple. Full range of motion. No adenopathy. Thyroid Normal. No meningeal signs. No neck mass noted. Cardiovascular: Normal heart rate and rhythm. Heart sound normal. No murmurs noted. Pulses normal throughout. Respiratory: No respiratory distress. Painless inspiration. Breath sounds normal. No wheezes/rales/rhonchi noted. Chest nontender. No accessory muscle usage noted or decreased air movement noted. Abdomen: Soft and nontender. Bowel sounds normal in all 4 quadrants. No distention noted. No organomegaly noted. No visible injury noted. Back: No costovertebral angle tenderness. Full range of motion noted. Skin: Skin warm and dry. Normal skin color. Normal skin turgor. No rashes/lesions/lacerations noted. Extremities: No lower extremity edema. Extremities exhibit normal range of motion. Extremities nontender. Neuro: Oriented X 3. No motor deficit. No sensory deficit. Reflexes normal. Results Reviewed Results Reviewed: - Labs: Recent bloodwork prior to ablation. - Cardiology Workup: Ablation for atrial fibrillation completed. Coding Level of Care Code Est Pt Level 4 (57844) Complex EM visit Add On G2211 Diagnoses Establishing care with new doctor, encounter for Z76.89 Chronic pain G89.29 Hyperlipidemia E78.5 HTN (hypertension) I10 ADHD F90.9 Atrial fibrillation I48.91 Encounter for colorectal cancer screening using Cologuard test Z12.11; Z12.12 Additional Codes PHQ-9 - 84303 - PHQ-9 Billing: Yes ([id number]) EM-7 Assessment Billing - EM-7 Assessment Tool: EM-7 Assessment 56386 ([id number]) Time Spent (min) 50 Assessment & Plan Assessment & Plan (1) Establishing care with new doctor, encounter for: Code(s): Z76.89 - Persons encountering health services in other specified circumstances Category: Medical Plan: Patient was a patient of Dr. Lipscomb who is currently retiring. (2) Chronic pain: Code(s): G89.29 - Other chronic pain Category: Medical Plan: Prescribe Percocet, adjust dosage, refer to [facility] for reassessment. Condition is chronic and stable will continue to monitor. (3) Hyperlipidemia: Code(s): E78.5 - Hyperlipidemia, unspecified Category: Medical Plan: Continue Lipitor, consider tapering based on lipid panel and lifestyle improvements. Condition is chronic will continue to monitor. (4) HTN (hypertension): Code(s): I10 - Essential (primary) hypertension Category: Medical Plan: Controlled with antihypertensives; monitor at home, continue medication, adjust therapy as needed. Condition is chronic will continue to monitor. (5) ADHD: Code(s): F90.9 - Attention-deficit hyperactivity disorder, unspecified type Category: Medical Plan: Assess resumption of medication pending cardiology clearance. Condition is chronic and stable will continue to monitor. (6) Atrial fibrillation: Comment: Status post ablation at [facility] on 12/2024 Code(s): I48.91 - Unspecified atrial fibrillation Category: Medical Plan: Decreased fatigue post-ablation. Follow-up with Dr. Garcia to adjust antiarrhythmic management; Xarelto continued. Condition is chronic and stable continue to monitor. (7) Encounter for colorectal cancer screening using Cologuard test: Code(s): Z12.11 - Encounter for screening for malignant neoplasm of colon; Z12.12 - Encounter for screening for malignant neoplasm of rectum Category: Medical Plan: Will refer patient for Cologuard testing. Patient is aware that he should send in right away within 3 months. Should not have any blood on his hands or from hemorrhoids. If positive he will need a colonoscopy. He denies any high risk factors such as family history, unintentional weight loss or weight gain, black or bloody stools or chronic abdominal pain therefore qualifies for Cologuard test. Plan Plan Patient was informed and verbally consented to the use of an ambient scribe for clinic note documentation during this visit. 1. Atrial Fibrillation Decreased fatigue post-ablation. Follow-up with Dr. Garcia to adjust antiarrhythmic management; Xarelto continued. 2. Hypertension Controlled with antihypertensives; monitor at home, continue medication, adjust therapy as needed. 3. Chronic Pain Due To Bulging Discs Prescribe Percocet, adjust dosage, refer to Pain Management Clinic for reassessment. 4. Right Hip Replacement Stable hip prosthetic; no current interventions needed. 5. Post-Ablation Cardiac Follow-Up Continued cardiac monitoring and consultation with cardiology. 6. Adhd Assess resumption of medication pending cardiology clearance. 7. Elevated Cholesterol Continue Lipitor, consider tapering based on lipid panel and lifestyle improvements. 8. Blood Dyscrasias Suspected With History Of Lisinopril Use Monitoring of bruising; resolved post-Lisinopril cessation. 9. Status-Post Autoimmune-Related Tooth Loss Maintain denture care and oral health follow-ups. During today's conversation, we discussed the management of ongoing atrial fibrillation and associated fatigue post-ablation. I emphasized follow-up with cardiology to assess the need for continued antiarrhythmic interventions. We also reviewed his hypertension regimen, with home monitoring and probable maintenance of current antihypertensives. Regarding chronic pain due to spinal disc issues, I highlighted the importance of assessing non-Tylenol options, potentially through a pain management consult. We addressed medication discussions, primarily focusing on the risks of current therapies and possible reintroduction of an ADHD medication post-clearance from cardiology. The patient inquired about cholesterol management, and the benefits of lifestyle intervention and current Lipitor therapy were reiterated. The potential complications due to past Lisinopril therapy were noted as resolved. For dental concerns, continued care with dentures was advised. All management strategies were agreed upon with the patient, with plans for follow-up visits and lab work to monitor progress. Orders: Orders Erythrocyte Sedimentation Rate Today Z00.00 - Encounter for general adult medical examination without abnormal findings Magnesium Today Z00.00 - Encounter for general adult medical examination without abnormal findings Vitamin B12 and Folate Today Z00.00 - Encounter for general adult medical examination without abnormal findings TSH reflex Free T4 Today Z00.00 - Encounter for general adult medical examination without abnormal findings Vitamin D 25-OH Total Today Z00.00 - Encounter for general adult medical examination without abnormal findings PSA,Total (Free>4and<10) Today Z00.00 - Encounter for general adult medical examination without abnormal findings Hemoglobin A1c Today Z00.00 - Encounter for general adult medical examination without abnormal findings Lipid Panel Today Z00.00 - Encounter for general adult medical examination without abnormal findings Liver Panel Today Z00.00 - Encounter for general adult medical examination without abnormal findings Creatine Kinase Total Today Z00.00 - Encounter for general adult medical examination without abnormal findings Complete Blood Count Auto Diff Today Z00.00 - Encounter for general adult medical examination without abnormal findings Comprehensive [place]. Panel Fast Today Z00.00 - Encounter for general adult medical examination without abnormal findings Referrals Cologuard Test Z12.11 - Encounter for screening for malignant neoplasm of colon, Z12.12 - Encounter for screening for malignant neoplasm of rectum Pain Management Referral G89.29 - Other chronic pain Medications: New oxycodone Partial Fill upon patient request. 10 mg PO QID 30 days PRN 120 tabs 0RF pain Patient Instructions: - Continue cardiac medications as prescribed and monitor blood pressure at home. - Follow up with cardiology as advised. - Take Percocet only as needed and as prescribed, discuss any changes with pain management specialists. - Monitor for any unusual bruising or bleeding. - Maintain regular dental care and monitor for any changes in oral health. - Schedule lab work and follow-up visit for further assessment. - Contact us if you notice any new or worsening symptoms.
--- OUTSIDE RECORDS SUMMARY | 2025-02-03 09:22 | XMS_ITS | Clinical Summary ---
Author Organization [facility] Address [address] [place] [address] Care Team Providers Care Cleaner And Trimmer Name Role Phone Sebastien Lipscomb MD Primary Care Provider [phone] Social History Tobacco Use Types Packs/Day Years [...] - 2023-2 5 season) 2024 Influenza Vaccine (Season Ended) 2025 RSV Immunization Adult Patie nts (1 - 1-dose 75+ series) 2033 HIB [...] age to complete this topic Meningococcal B Vaccine Aged Out No l onger eligible based on patient's age to complete this topic RSV Immunization Patients Un lilli 20 months Aged Out No longer eligible b ased on patient's age to complete this topic Varicella Vaccines Aged Out No longer eligible based on patient's age to complete this topic Care Teams Cleaner And Trimmer Relationship Specialty Start Date End Date Sebastien Lipscomb MD [address] [place] PCP - General Internal Medicine 05/23/19
== END 2025-02-03 10:06 | disposition home or self-care (01) ==
LOC: HO.HMCSH 09:11
PROVIDERS: PCP Internal Medicine; Visit Provider Physician Assistant Medical
DX: Z76.89 Persons encountering health services in other specified circumstances (principal); G89.29 Other chronic pain; E78.5 Hyperlipidemia, unspecified; I10 Essential (primary) hypertension; F90.9 Attention-deficit hyperactivity disorder, unspecified type; I48.91 Unspecified atrial fibrillation; Z12.11 Encounter for screening for malignant neoplasm of colon; Z12.12 Encounter for screening for malignant neoplasm of rectum

== ENCOUNTER → 2025-02-03 09:11 | Outpatient (BNVA) | payer OTHER, SELFPAY | PROVIDERS: PCP Internal Medicine; Visit Provider Physician Assistant Medical | DX: Z76.89 Persons encountering health services in other specified circumstances (principal); G89.29 Other chronic pain; E78.5 Hyperlipidemia, unspecified; I10 Essential (primary) hypertension; F90.9 Attention-deficit hyperactivity disorder, unspecified type; I48.91 Unspecified atrial fibrillation; Z79.01 Long term (current) use of anticoagulants; Z79.899 Other long term (current) drug therapy | CPT/HCPCS: 96127 ==

== ENCOUNTER 2025-02-04 08:58 | Outpatient (REF) | payer OTHER, SELFPAY ==
--- OUTSIDE RECORDS SUMMARY | 2025-02-04 09:28 | XMS_ITS | Clinical Summary ---
Author Organization [facility] Address [address] [place] [address] Care Team Providers Care Pediatric Hospitalist Name Role Phone Sebastien Lipscomb MD Primary Care Provider [phone] Social History Tobacco Use Types Packs/Day Years [...] age to complete this topic Care Teams Pediatric Hospitalist Relationship Specialty Start Date End Date Sebastien Lipscomb MD [address] [place] PCP - General Internal Medicine 05/23/19
[2025-02-04 10:19] LABS: MANUAL DIFF FLAG NO
[2025-02-04 10:22] LABS: Basophils Absolute Auto 0.1 X10*3/uL (0.0-0.2); Basophils Percent Auto 1.2 % (0-2); Eosinophils Absolute Auto 0.1 X10*3/uL (0.0-0.4); Eosinophils Percent Auto 1.9 % (0-4); Hematocrit 39.7 % (42.0-52.0); Imm Gran Abs Auto 0.02 X10*3/uL (0.00-0.03); Imm Gran Pct Auto 0.4 % (0.0-0.4); Lymphocytes Absolute Auto 1.8 X10*3/uL (1.2-4.9); Mean Corpuscular HGB Conc 32.7 g/dl (31.0-36.0); Mean Corpuscular Hemoglobin 30.6 pg (27.0-33.0); Mean Corpuscular Volume 93.4 fL (80.0-98.0); Mean Platelet Volume 10.8 fL (9.4-12.4); Monocytes Absolute Auto 0.5 X10*3/uL (0.1-1.2); Monocytes Percent Auto 9.2 % (2-11); Neutrophils Absolute Auto 2.8 x10*3/uL (2.0-8.3); Neutrophils Percent Auto 53.3 % (45-73); Platelet Count 275 X10*3/uL (160-400); Red Blood Count 4.25 X10*6/uL (4.60-5.80); White Blood Count 5.2 X10*3/uL (4.8-10.8)
[2025-02-04 10:40] LABS: Estimated Average Glucose 108 mg/dL; Hemoglobin A1C 123.4158 umol/L; Hemoglobin A1c % 5.4 % (<6.0); Total Hemoglobin (HGBA1C) 3443.5425 umol/L
[2025-02-04 11:07] LABS: Erythrocyte Sedimentation Rate 34 MM/HR (0-15)
[2025-02-04 11:39] LABS: Alanine Aminotransferase 27 U/L (0-40); Albumin Level 3.9 g/dL (3.5-5.0); Alkaline Phosphatase 71 U/L (39-117); Anion Gap 11 (12-20); Aspartate Amino Transferase 33 U/L (5-37); Bilirubin Direct 0.2 mg/dL (0.0-0.5); Bilirubin Total 0.5 mg/dL (0.0-1.0); Blood Urea Nitrogen 14 mg/dL (9-16); Calcium 9.7 mg/dL (8.4-10.2); Carbon Dioxide 27 mmol/L (22-29); Chloride 106 mmol/L (96-108); Cholesterol 180 mg/dL (<200); Estimated Glomerular Filt Rate > 60; Glucose Fasting 96 mg/dL (60-99); HDL Cholesterol 48 mg/dL (>40); LDL Cholesterol Calculated 115 mg/dL (<100); Magnesium 2.2 mg/dL (1.6-2.6); Potassium 4.4 mmol/L (3.3-5.1); Sodium 140 mmol/L (135-145); Total Protein 7.1 g/dL (6.5-8.0); Triglycerides 88 mg/dL (<150)
[2025-02-04 11:43] LABS: TSH reflex Free T4 1.91 uIU/mL (0.32-4.0); Vitamin D 25-OH Total 18.4 ng/mL (>30)
[2025-02-04 11:54] LABS: Vitamin B12 722 pg/mL (200-900)
== END 2025-02-04 08:59 | disposition home or self-care (01) ==
LOC: HO.HMGCLDS 08:58
PROVIDERS: Visit Provider Physician Assistant Medical
DX: Z00.00 Encounter for general adult medical examination without abnormal findings (principal); Z12.5 Encounter for screening for malignant neoplasm of prostate; Z13.0 Encounter for screening for diseases of the blood and blood-forming organs and certain disorders involving the immune mechanism; Z13.29 Encounter for screening for other suspected endocrine disorder; Z13.1 Encounter for screening for diabetes mellitus; Z13.220 Encounter for screening for lipoid disorders
CPT/HCPCS: 36415; 80053; 80061; 80076; 82248; 82306; 82550; 82607; 82746; 83036; 83735; 84153; 84443; 85025; 85652

== ENCOUNTER 2025-03-11 13:49 | Outpatient (AMB) | payer OTHER, SELFPAY ==
[2025-03-11 13:51] VITALS: BP 128/78; PULSE 69; BMI 26.3
--- NOTE | 2025-03-11 13:51 | A.OFFVIS_ITS ---
Vital Signs 03/11/25 13:51 Height 6 ft 2 in Weight 205 lb 0.478 oz BMI 26.3 BP 128/78 Blood Pressure Location Lt brachial Position Sitting Pulse 69 Pulse Source Monitor Intake Visit Reasons: 4m follow up Allergies phenobarbital (PHENOBARBITAL) Allergy (Severe, Verified 02/03/25 10:29) RASH, blisters codeine (Codeine) Allergy (Intermediate, Verified 02/03/25 10:29) NAUSEA/VOMITING, GI upset aspirin (Fiorinal) Allergy (Unknown, Verified 02/03/25 10:29) hives butalbital (Fiorinal) Allergy (Unknown, Verified 02/03/25 10:29) hives caffeine (Fiorinal) Allergy (Unknown, Verified 02/03/25 10:29) hives Codeine Sulfate Allergy (Unknown, Uncoded 02/03/25 10:29) nausea and vomiting Medication List - Last Reconciled 03/11/25 by Jamey Garcia MD atorvastatin 20 mg PO QPM diltiazem HCl CD (Cardizem CD) 180 mg PO DAILY 30 days epinephrine mL IM oxycodone 10 mg PO TID PRN 30 days rivaroxaban (Xarelto) 20 mg PO DAILY valacyclovir (Valtrex) 1,000 mg PO DAILY 5 days HPI Comments Details: [place] returns for follow-up. To recall, he has a history of atrial flutter as well as fibrillation. He was maintained on diltiazem as well as metoprolol. Due to high arrhythmia burden, he also saw EP and actually had ablation done few months back. He states he is doing fine. Even when he had the arrhythmia he was not feeling much symptoms. However, he states he is feeling much less tired now not clear if it is because of freedom from arrhythmia or because of stopping some medications like beta-blockers. Otherwise, he underwent coronary CTA in the past that shows moderate CAD but he has got no angina. His weight is slowly getting better. Otherwise, he states he feels well. [facility] Medical History (Updated 02/21/25 @ 09:05 by Marylu Stauffer PA-C) Positive colorectal cancer screening using Cologuard test Colon cancer screening Encounter for colorectal cancer screening using Cologuard test ADHD Atrial fibrillation Establishing care with new doctor, encounter for Chronic pain JOSHUA (obstructive sleep apnea) HTN (hypertension) Lupus Surgical History (Updated 02/03/25 @ 10:32 by Marylu Stauffer PA-C) History of cardiac ablation for atrial fibrillation (~12/2024) H/O thumb surgery H/O shoulder surgery History of total right hip arthroplasty Family History Brother Aneurysm Father Aneurysm Other CAD (coronary artery disease) Social History Housing: House Alcohol intake: never Patient Tobacco Use Status: Never used Tobacco e-Cigarette/Vaping Use: Currently Using Substance Use Type: Marijuana service: No Current occupational status: employed Cognitive needs: No Hearing needs: No Vision needs: Yes (reading glasses) Review of Systems Const Denies weakness ENT Denies dizziness Card Denies chest pain, Denies chest pain with activity, Denies syncope, Denies rapid heart rate, Denies pedal edema, Denies edema, Denies leg edema, Denies lightheadedness, Denies palpitations, Denies dyspnea, Denies dyspnea on exertion and Denies orthopnea Resp Denies cough, Denies dyspnea and Denies dyspnea on exertion GI Denies hematochezia and Denies change in stool character Musc Denies abnormal gait, Denies muscle cramps, Denies muscle weakness, Denies numbness, Denies radiating pain into limb and Denies tingling Neuro Denies abnormal gait, Denies dizziness, Denies syncope, Denies numbness, Denies tingling and Denies weakness Endo Denies palpitations Physical Exam Vital Signs: Last Vital Signs Pulse 69 03/11/25 13:51 BP 128/78 03/11/25 13:51 BMI result Body Mass Index 26.3 Const General: comfortable and no acute distress Orientation/consciousness: patient oriented x3 HEENT Other: Unremarkable Head: Yes normal to inspection Neck Neck: Yes normal visual inspection Chest Chest palpation & inspection: normal inspection of the chest Resp Auscultation: clear to auscultation bilaterally Cardio Palpation: normal PMI Heart sounds: S1 normal heart sound present, S2 normal heart sound present, no gallops, no murmurs and no rubs GI Palpation (GI): Soft to palpation Back/Spine/Pelvis Other: unremarkable Skin General skin exam: no rashes or lesions noted Neuro General: patient oriented x3 Extrem General: Yes normal to inspection Psych Mental Status: mental status grossly normal Office Procedures EKG Details: EKG with underlying sinus rhythm at 69/Min; incomplete right bundle-branch block pattern, [place] [id number], Complete Assessment & Plan Assessment & Plan (1) Atrial flutter by electrocardiogram: Code(s): I48.92 - Unspecified atrial flutter Category: Medical Plan: Status post ablation for atrial fibrillation, typical atrial flutter, atypical atrial flutter, 12/2024. Continue diltiazem. Continue anticoagulation. Check Holter. (2) PAF (paroxysmal atrial fibrillation): Code(s): I48.0 - Paroxysmal atrial fibrillation Category: Medical Plan: As above. (3) Atherosclerotic cardiovascular disease: Code(s): I25.10 - Atherosclerotic heart disease of [place] coronary artery without angina pectoris Category: Medical (4) HTN (hypertension): Code(s): I10 - Essential (primary) hypertension Category: Medical Plan: In the coronary CTA, moderate coronary disease burden, mostly in the LAD, diagonal and RCA. Minimal disease in the left main, circumflex and OM1. Clinically, he has got no angina. Continue statins. LDL is improved but ideally, it should be much lower. He states he is losing weight and doing a better diet and he wants to just recheck lipids before going up on statin dose. Lipid profile ordered. (5) JOSHUA (obstructive sleep apnea): Code(s): G47.33 - Obstructive sleep apnea (adult) (pediatric) Category: Medical Plan: This is a history of sleep apnea but he does not use CPAP. He believes because of weight loss he does not have it anymore. Plan Discussion Notes I discussed with the patient the importance of monitoring for any residual arrhythmias using a Holter monitor. We reviewed the current medication regimen and the need to monitor for side effects. The patient was informed about the need for dietary changes to achieve cholesterol targets and the possibility of adjusting statin dosage. A follow-up appointment was scheduled for six months to reassess the patient's condition. Patient was informed and verbally consented to the use of an ambient scribe for clinic note documentation during this visit. Orders: Orders ECG 7 day holter monitor Today I48.91 - Unspecified atrial fibrillation Patient Instructions: - Use the Holter monitor as instructed to check for arrhythmias. - Continue taking diltiazem and Xarelto, and watch for any side effects. - Follow a healthy diet to help lower cholesterol levels. - Return for a follow-up appointment in six months. Coding Level of Care Code Est Pt Level 4 (56582) Complex EM visit Add On G2211 Diagnoses Atrial flutter by electrocardiogram I48.92 PAF (paroxysmal atrial fibrillation) I48.0 Atherosclerotic cardiovascular disease I25.10 HTN (hypertension) I10 JOSHUA (obstructive sleep apnea) G47.33 CPT Codes EKG - CPT: 36324-[id number], Complete ([id number])
--- OUTSIDE RECORDS SUMMARY | 2025-03-11 16:14 | XMS_ITS | Clinical Summary ---
Author Organization [facility] Address [address] [place] [address] Care Team Providers Care Adjunct Instructor Chemistry Name Role Phone Sebastien Lipscomb MD Primary Care Provider [phone] Social History Tobacco Use Types Packs/Day Years [...] age to complete this topic Care Teams Adjunct Instructor Chemistry Relationship Specialty Start Date End Date Sebastien Lipscomb MD [address] [place] PCP - General Internal Medicine 05/23/19
== END 2025-03-11 14:22 | disposition home or self-care (01) ==
LOC: HO.HCS 13:50
PROVIDERS: PCP Internal Medicine; Visit Provider Internal Medicine
DX: I48.92 Unspecified atrial flutter (principal); I48.0 Paroxysmal atrial fibrillation; I25.10 Atherosclerotic heart disease of native coronary artery without angina pectoris; I10 Essential (primary) hypertension; G47.33 Obstructive sleep apnea (adult) (pediatric)
CPT/HCPCS: 93010; 99214

== ENCOUNTER → 2025-03-11 13:49 | Outpatient (BNVA) | payer OTHER, SELFPAY | PROVIDERS: PCP Internal Medicine; Visit Provider Internal Medicine | DX: I48.0 Paroxysmal atrial fibrillation (principal); I48.92 Unspecified atrial flutter | CPT/HCPCS: 93005 ==

== ENCOUNTER 2025-03-26 15:26 | Outpatient (AMB) | payer OTHER, MEDICARE, SELFPAY ==
--- OUTSIDE RECORDS SUMMARY | 2025-03-26 15:34 | XMS_ITS | Clinical Summary ---
Author Organization [facility] Address [address] [place] [address] Care Team Providers Care Employee Operations Examiner Name Role Phone Sebastien Lipscomb MD Primary Care Provider [phone] Social History Tobacco Use Types Packs/Day Years [...] 2023-2 5 season) 2024 Influenza Vaccine (#1) 2025 RSV Immunization Adult Patie nts (1 [...] age to complete this topic Care Teams Employee Operations Examiner Relationship Specialty Start Date End Date Sebastien Lipscomb MD [address] [place] PCP - General Internal Medicine 05/23/19
--- NOTE | 2025-03-26 15:37 | MHC.OFFVIS ---
Vital Signs 03/26/25 15:38 Height 6 ft 2 in Weight 212 lb BMI 27.2 BP 167/97 H Blood Pressure Location Lt brachial Position Sitting Respiration 18 Pulse 93 Pulse Source Pulse Oximeter Pulse Oximetry (%) 100 Oxygen Delivery Method Room Air Intake Visit Reasons: Back and shoulders [employer]ocomotive [employer] Required: No Allergies phenobarbital (PHENOBARBITAL) Allergy (Severe, Verified 02/03/25 10:29) RASH, blisters codeine (Codeine) Allergy (Intermediate, Verified 02/03/25 10:29) NAUSEA/VOMITING, GI upset aspirin (Fiorinal) Allergy (Unknown, Verified 02/03/25 10:29) hives butalbital (Fiorinal) Allergy (Unknown, Verified 02/03/25 10:29) hives caffeine (Fiorinal) Allergy (Unknown, Verified 02/03/25 10:29) hives Codeine Sulfate Allergy (Unknown, Uncoded 02/03/25 10:29) nausea and vomiting HPI Comments Details: [place] is very pleasant 64 years old gentleman who presents in my office with complains on pain in multiple areas of his body: He reports pain in the lower back pain in bilateral shoulder and pain in the right hip. Most of the attention he directed to the pain in the back. He reports that flexing forward aggravate his pain. He reports that arching his back backwards does not affect his pain. He reports that pain is aggravated by prolonged sitting. He denies pain increase was walking but admits pain increase with prolonged standing. He reports that he can not sleep normally he can not do activities of daily living he is able to take care of himself but he can not function normally. He is working part-time and he is retired. Weather changes aggravate his pain and movements aggravate his pain he is currently taking 10 mg of oxycodone for pain control 4 times a day. The pain is most severe in the morning and less severe in the late afternoon. In terms of tissue damage he describes his pain as sharp exhausting and aching sensation. He had MRI more than 4 years ago no current images of the lower back. He had multiple sessions of physical therapy he reports that physical therapy does not help his pain. He tried occupational therapy and had some pain relief from occupational therapy. He was using 10s unit and that helped his pain minimally. He also was using home traction unit and it was helping his pain as well. In the past he received epidural steroid injections he denies any help from this injections. His past medical history significant for atrial flutter and atrial fibrillation. He is Cardizem and Xarelto at this time. His past surgical history significant for thumb surgery in 86 right hip replacement in 2014 right shoulder rotator cuff surgery in 2018 and left shoulder rotator cuff surgery in 2019 he had heart aberrant pathway ablation in 2024. He denies smoking cigarettes he smokes cannabis. He denies drinking alcohol. He admits caffeinated beverages. [facility] Medical History (Updated 03/26/25 @ 16:46 by Tj Ramires MD) Positive colorectal cancer screening using Cologuard test Colon cancer screening Encounter for colorectal cancer screening using Cologuard test ADHD Atrial fibrillation Establishing care with new doctor, encounter for Chronic pain JOSHUA (obstructive sleep apnea) HTN (hypertension) Lupus Surgical History (Updated 02/03/25 @ 10:32 by Marylu Stauffer PA-C) History of cardiac ablation for atrial fibrillation (~12/2024) H/O thumb surgery H/O shoulder surgery History of total right hip arthroplasty Family History Brother Aneurysm Father Aneurysm Other CAD (coronary artery disease) Social History Housing: House Alcohol intake: never Patient Tobacco Use Status: Never used Tobacco e-Cigarette/Vaping Use: Currently Using Substance Use Type: Marijuana service: No Current occupational status: employed Cognitive needs: No Hearing needs: No Vision needs: Yes (reading glasses) Review of Systems Const All systems reviewed & are unremarkable except as noted in HPI and below ENT Reports Normal hearing present Neuro Reports Normal hearing present, Denies Abnormal speech present, Denies confusion and Denies Sensory deficit (Neuro) Psych Denies confusion Physical Exam Vital Signs: Last Vital Signs Pulse 93 03/26/25 15:38 Resp 18 03/26/25 15:38 BP 167/97 H 03/26/25 15:38 Pulse Ox 100 03/26/25 15:38 Oxygen Delivery Method Room Air 03/26/25 15:38 BMI result Body Mass Index 27.2 Const General: no acute distress; No confusion Orientation/consciousness: patient oriented x3 and No confusion Eyes General: appearance normal, both eyes and all related structures Pupils: Equal, round and reactive pupils present EOM: EOMs intact bilaterally Neck Neck: Yes full ROM Chest Chest palpation & inspection: normal inspection of the chest Resp Effort & Inspection: normal respiratory effort, able to speak in complete sentences, normal respiratory pattern, no audible wheezes and no cough Cardio Jugular venous distension: no JVD GI Inspection: Yes normal to inspection Back/Spine/Pelvis Other: Forest test is positive on the right. Pelvic compression test is positive on the right. Pelvic distraction test is positive on the right. Gaenslen test is negative bilaterally. Fourteen finger test is positive on the right. Neuro General: patient oriented x3, gait normal and No confusion Cranial nerves: Yes CN's II-XII intact bilaterally, Yes Equal, round and reactive pupils present, Yes Normal hearing present and Yes Ability to bilaterally elevate shoulders present Speech: No Abnormal speech present Gait exam (Neuro): Normal gait present Motor exam (neuro): 5/5 motor strength present throughout Sensory Exam: No Sensory deficit (Neuro) Extrem General: No pedal edema Psych Speech and movement: Normal speech and movement present Affect: normal affect Attitude: cooperative Thought process: Normal thought process present Thought content: Normal thought content present Insight: Good insight present (Psych) Judgement: Good judgement present (Psych) Assessment & Plan Assessment & Plan (1) Vertebrogenic low back pain: Code(s): M54.51 - Vertebrogenic low back pain Category: Medical (2) Sacroiliitis: Code(s): M46.1 - Sacroiliitis, not elsewhere classified Category: Medical (3) Chronic pain syndrome: Code(s): G89.4 - Chronic pain syndrome Category: Medical Plan Vertebra genic pain syndrome comes to my mind with evaluation of this patient. I will send him for MRI of the lumbar spine. Possibility exists of sacroiliac joint dysfunction being cause of his pain syndrome. I also will schedule him for diagnostic sacroiliac joint injection. He is interested in joining chronic opioid program. I will schedule him for the appointment to discuss this chronic opioid therapy in 1 week. Orders: Orders MR lumbar spine wo con Today M54.51 - Vertebrogenic low back pain Coding Level of Care Code New Pt Level 3 (33427) Diagnoses Vertebrogenic low back pain M54.51 Sacroiliitis M46.1 Chronic pain syndrome G89.4
[2025-03-26 15:38] VITALS: BP 167/97; PULSE 93; RESP 18; O2SAT 100; BMI 27.2
== END 2025-03-26 16:00 | disposition home or self-care (01) ==
LOC: HO.PMC 15:26
PROVIDERS: PCP Internal Medicine; Referring Provider Physician Assistant Medical; Visit Provider Anesthesiology
DX: M54.51 Vertebrogenic low back pain (principal); M46.1 Sacroiliitis, not elsewhere classified; G89.4 Chronic pain syndrome
CPT/HCPCS: 99203

== ENCOUNTER 2025-04-02 11:15 | Outpatient (AMB) | payer OTHER, MEDICARE, SELFPAY ==
[2025-04-02 11:28] VITALS: BP 167/94; PULSE 84; RESP 18; O2SAT 98
--- NOTE | 2025-04-02 11:28 | MHC.OFFVIS ---
Vital Signs 04/02/25 11:28 Weight 210 lb BP 167/94 H Blood Pressure Location Lt brachial Position Sitting Respiration 18 Pulse 84 Pulse Oximetry (%) 98 Oxygen Delivery Method Room Air Intake Visit Reasons: Discussion of Chronic Opioid Contract [employer] Required: No Allergies phenobarbital (PHENOBARBITAL) Allergy (Severe, Verified 02/03/25 10:29) RASH, blisters codeine (Codeine) Allergy (Intermediate, Verified 02/03/25 10:29) NAUSEA/VOMITING, GI upset aspirin (Fiorinal) Allergy (Unknown, Verified 02/03/25 10:29) hives butalbital (Fiorinal) Allergy (Unknown, Verified 02/03/25 10:29) hives caffeine (Fiorinal) Allergy (Unknown, Verified 02/03/25 10:29) hives Codeine Sulfate Allergy (Unknown, Uncoded 02/03/25 10:29) nausea and vomiting HPI Comments Details: [place] is back in my office to start on chronic opioid program. He did discuss with me today plans for further opioid management. He would submit his urine drug screen. Opioid contract opioid consent opioid information page were discussed. The patient was administered opioid addiction risk scale. He has total risk for addiction is equal to 7. Therefore he has mild risk of opioid addiction. Implications for mild risks were explained to the patient. After his urine drug screen we will be negative for drugs of abuse, I will accept minimal doses of THC because he is on vaping CBD oil, I will start him on oxycodone 10 mg t.i.d.. After that I will see him in 14 days. Prior: pain in the lower back pain in bilateral shoulder and pain in the right hip. Most of the attention he directed to the pain in the back. He reports that flexing forward aggravate his pain. He reports that arching his back backwards does not affect his pain. He reports that pain is aggravated by prolonged sitting. He denies pain increase was walking but admits pain increase with prolonged standing. He had multiple sessions of physical therapy he reports that physical therapy does not help his pain. He tried occupational therapy and had some pain relief from occupational therapy. He was using 10s unit and that helped his pain minimally. He also was using home traction unit and it was helping his pain as well. In the past he received epidural steroid injections he denies any help from this injections. His past medical history significant for atrial flutter and atrial fibrillation. He is Cardizem and Xarelto at this time. His past surgical history significant for thumb surgery in 86 right hip replacement in 2014 right shoulder rotator cuff surgery in 2018 and left shoulder rotator cuff surgery in 2018 he had heart aberrant pathway ablation in 2024. He denies smoking cigarettes he smokes cannabis added to his CBD vaping.. He denies drinking alcohol. He admits caffeinated beverages. [facility] Medical History (Updated 03/26/25 @ 16:46 by Tj Ramires MD) Positive colorectal cancer screening using Cologuard test Colon cancer screening Encounter for colorectal cancer screening using Cologuard test ADHD Atrial fibrillation Establishing care with new doctor, encounter for Chronic pain JOSHUA (obstructive sleep apnea) HTN (hypertension) Lupus Surgical History (Updated 02/03/25 @ 10:32 by Marylu Stauffer PA-C) History of cardiac ablation for atrial fibrillation (~12/2024) H/O thumb surgery H/O shoulder surgery History of total right hip arthroplasty Family History Brother Aneurysm Father Aneurysm Other CAD (coronary artery disease) Social History Housing: House Alcohol intake: never Patient Tobacco Use Status: Never used Tobacco e-Cigarette/Vaping Use: Currently Using Substance Use Type: Marijuana service: No Current occupational status: employed Cognitive needs: No Hearing needs: No Vision needs: Yes (reading glasses) Review of Systems Const All systems reviewed & are unremarkable except as noted in HPI and below ENT Reports Normal hearing present Neuro Reports Normal hearing present, Denies Abnormal speech present, Denies confusion and Denies Sensory deficit (Neuro) Psych Denies confusion Physical Exam Vital Signs: Last Vital Signs Pulse 84 04/02/25 11:28 Resp 18 04/02/25 11:28 BP 167/94 H 04/02/25 11:28 Pulse Ox 98 04/02/25 11:28 Oxygen Delivery Method Room Air 04/02/25 11:28 Const General: no acute distress; No confusion Orientation/consciousness: patient oriented x3 and No confusion Eyes General: appearance normal, both eyes and all related structures Pupils: Equal, round and reactive pupils present EOM: EOMs intact bilaterally Neck Neck: Yes full ROM Chest Chest palpation & inspection: normal inspection of the chest Resp Effort & Inspection: normal respiratory effort, able to speak in complete sentences, normal respiratory pattern, no audible wheezes and no cough Cardio Jugular venous distension: no JVD GI Inspection: Yes normal to inspection Back/Spine/Pelvis Other: Forest test is positive on the right. Pelvic compression test is positive on the right. Pelvic distraction test is positive on the right. Gaenslen test is negative bilaterally. Fourteen finger test is positive on the right. Neuro General: patient oriented x3, gait normal and No confusion Cranial nerves: Yes CN's II-XII intact bilaterally, Yes Equal, round and reactive pupils present, Yes Normal hearing present and Yes Ability to bilaterally elevate shoulders present Speech: No Abnormal speech present Gait exam (Neuro): Normal gait present Motor exam (neuro): 5/5 motor strength present throughout Sensory Exam: No Sensory deficit (Neuro) Extrem General: No pedal edema Psych Speech and movement: Normal speech and movement present Affect: normal affect Attitude: cooperative Thought process: Normal thought process present Thought content: Normal thought content present Insight: Good insight present (Psych) Judgement: Good judgement present (Psych) Assessment & Plan Assessment & Plan (1) Vertebrogenic low back pain: Code(s): M54.51 - Vertebrogenic low back pain Category: Medical (2) Sacroiliitis: Code(s): M46.1 - Sacroiliitis, not elsewhere classified Category: Medical (3) Chronic pain syndrome: Code(s): G89.4 - Chronic pain syndrome Category: Medical Plan Vertebra genic pain syndrome comes to my mind with evaluation of this patient. He is scheduled for MRI this Monday04/04/2026. He is scheduled for sacroiliac joint injection as well. Opioid information page opioid contract and opioid consent were discussed with the patient. The patient was administered opioid risk questionnaire and his risk is weak will to 7. Therefore his risk is minimal. As soon as his UDS will come back and it is negative for drugs of abuse I will start him on oxycodone 10 mg t.i.d.. Medications: Discontinued oxycodone Partial Fill upon patient request. Discontinued Reason: Doctor's Order 10 mg PO TID 30 days PRN 90 tabs 0RF pain Patient Instructions: I here by testify that I spent 30 minutes in conversation with this patient discussing his opioid risks, benefits, his opioid contract consent in information page. Coding Level of Care Code Est Pt Level 4 (31897) Diagnoses Vertebrogenic low back pain M54.51 Sacroiliitis M46.1 Chronic pain syndrome G89.4
--- OUTSIDE RECORDS SUMMARY | 2025-04-02 12:06 | XMS_ITS | Clinical Summary ---
Author Organization [facility] Address [address] [place] [address] Care Team Providers Care Wet Process Miller Head Assistant Name Role Phone Sebastien Lipscomb MD Primary Care Provider [phone] Social History Tobacco Use Types Packs/Day Years [...] Vaccine ( - 2023-2 5 season) 2024 Depression Screening 09/18/2024 Influenza Vaccine (#1) 2025 RSV Immunization Adult [...] age to complete this topic Care Teams Wet Process Miller Head Assistant Relationship Specialty Start Date End Date Sebastien Lipscomb MD [address] [place] PCP - General Internal Medicine 05/23/19
== END 2025-04-02 12:16 | disposition home or self-care (01) ==
LOC: HO.PMC 11:15
PROVIDERS: PCP Internal Medicine; Visit Provider Anesthesiology
DX: M54.51 Vertebrogenic low back pain (principal); M46.1 Sacroiliitis, not elsewhere classified; G89.4 Chronic pain syndrome
CPT/HCPCS: 99214

== ENCOUNTER 2025-04-04 07:06 | Outpatient (REF) | payer OTHER, SELFPAY ==
--- NOTE | ~2025-04-04 | MR_ITS ---
Workstation: [id number] EXAMINATION: MR LUMBAR SPINE WITHOUT IV CONTRAST History: M54.51 - Vertebrogenic low back pain Technique: Sagittal T1, T2 and STIR, and axial T1 and T2 weighted images of the lumbar spine were obtained per departmental protocol. Comparison: Comparison is made with the prior examination dated 05/06/2019. Findings: There is mild levoscoliosis. The vertebral bodies maintain normal height and marrow signal intensity. There is grade I spondylolisthesis of L4 on L5 measuring approximately 5-6 mm and grade I spondylolisthesis of L5 on S1 measuring approximately 6-7 mm. Findings have progressed since the prior study. There is mild degenerative disc disease with disc desiccation. Disc heights are maintained. At T12-L1,there is a mild disc bulge with a superimposed left lateral disc protrusion. There is facet and ligamentum flavum hypertrophy without significant central spinal or neural foraminal stenosis. At L1-2, there is a diffuse moderate disc bulge with associated central annular tear. There is facet and ligamentum flavum hypertrophy causing moderate central spinal stenosis and bilateral neural foraminal narrowing. At L2-3, there is a diffuse moderate disc bulge. There is facet osteoarthritis and ligamentum flavum hypertrophy causing moderate central spinal stenosis. The neural foramen are patent. At L3-4, there is a moderate disc bulge which is asymmetric to the right. There is severe facet osteoarthritis and moderate ligamentum flavum hypertrophy. There is resultant mild central spinal stenosis and narrowing of the inferior recesses of the neural foramen. At L4-5, there is uncovering of the intervertebral discs secondary to spondylolisthesis. There is severe facet osteoarthritis with resultant mild to moderate central spinal stenosis. There is bilateral neural foraminal adenosis. At L5-S1, there is uncovering of the intervertebral discs secondary to spondylolisthesis. There is facet osteoarthritis without central spinal stenosis. There is bilateral neural foraminal narrowing, left greater than right. The conus terminates at the T12-L1 level and demonstrates normal signal intensity. The visualized paraspinal soft tissues are unremarkable. MR/MR lumbar spine wo con Impression: 1. Mild levoscoliosis. Grade I spondylolisthesis of L4 on L5 and L5 on S1 with progression since the prior study. 2. Moderate central spinal stenosis at L1-2, L2-3, and L4-5. 3. Bilateral neural foraminal stenosis at L1-2, L4-5, and L5-S1. Electronically signed by: Gab Montejo MD 04/04/2025 08:13 AM EDT
--- OUTSIDE RECORDS SUMMARY | 2025-04-04 07:08 | XMS_ITS | Clinical Summary ---
Author Organization [facility] Address [address] [place] [address] Care Team Providers Care Cupola Tender Name Role Phone Sebastien Lipscomb MD Primary Care Provider [phone] Social History Tobacco Use Types Packs/Day Years [...] age to complete this topic Care Teams Cupola Tender Relationship Specialty Start Date End Date Sebastien Lipscomb MD [address] [place] PCP - General Internal Medicine 05/23/19
== END 2025-04-04 07:07 | disposition home or self-care (01) ==
LOC: HO.MRI 07:06
PROVIDERS: PCP Physician Assistant Medical; Visit Provider Anesthesiology
DX: M54.51 Vertebrogenic low back pain (principal)
CPT/HCPCS: 72148

== ENCOUNTER → 2025-04-04 07:13 | Outpatient (BNV) | payer OTHER, SELFPAY | PROVIDERS: PCP Physician Assistant Medical; Visit Provider Radiology Diagnostic Radiology | DX: M43.16 Spondylolisthesis, lumbar region (principal) | CPT/HCPCS: 72148 ==

== ENCOUNTER 2025-04-14 05:44 | Emergency (ER) | payer OTHER, SELFPAY ==
[2025-04-14 05:48] VITALS: BP 139/80; PULSE 71; RESP 18; TEMP 36.9; O2SAT 97; BMI 26.3
--- OUTSIDE RECORDS SUMMARY | 2025-04-14 06:05 | XMS_ITS | Clinical Summary ---
Author Organization [facility] Address [address] [place] [address] Care Team Providers Care Store Product Demonstrator Name Role Phone Sebastien Lipscomb MD Primary Care Provider [phone] Social History Tobacco Use Types Packs/Day Years [...] age to complete this topic Care Teams Store Product Demonstrator Relationship Specialty Start Date End Date Sebastien Lipscomb MD [address] [place] PCP - General Internal Medicine 05/23/19
--- NOTE | 2025-04-14 07:32 | ED_ITS ---
HPI - Allergic Reaction General Chief complaint: Allergic Reaction Stated complaint: severe poison deanna Time Seen by Provider: 04/14/25 06:24 Source: patient and family Mode of arrival: ambulatory Limitations: no limitations History of Present Illness ED Provider: Dr. Marissa Shankar HPI narrative: 64 year old male with PMH of HTN, Paroxysmal atrial fibrillation on xarelto, and obstructive sleep apnea presenting with facial swelling and rash after exposure to poison deanna yesterday. Patient admits he is extremely allergic to poison deanna and thinks he was exposed all day yesterday while cleaning out his yard. States he accidentally touched his face, eyes and penis with plant oils and is experiencing severe swelling, rash and itching in those areas. No throat swelling or difficulty breathing. Unable to open his eyes due to swelling. No reported fevers, vomiting, diarrhea, abd pain, chest pain. Had been feeling well prior to this. Related Data Home Medications ?Medication ?Instructions ?Recorded ?Confirmed rivaroxaban 20 mg tablet (Xarelto) 20 mg PO DAILY 09/1903/11/25 epinephrine 0.3 mg/0.3 mL ml IM 02/03/25 03/11/25 injection, auto-injector Previous Rx's ?Medication ?Instructions ?Recorded diltiazem HCl 180 mg 180 mg PO DAILY 30 days #30 caps 06/11/22 capsule,extended release 24 hr (Cardizem CD) atorvastatin 20 mg tablet 20 mg PO QPM #90 tabs valacyclovir 1 gram tablet 1,000 mg PO DAILY 5 days #5 tabs 03/06/25 (Valtrex) oxycodone-acetaminophen 10 mg-325 1 tab PO TID PRN dee n #90 tabs 04/02/25 mg tablet (Percocet) prednisone 20 mg tablet See Taper PO DAILY #42 tabs 04/14/25 Allergies Allergy/AdvReac Type Severity Reaction Status Date / Time phenobarbital (PHENOBARBITAL) Allergy Severe RASH, Verified 04/14/25 05:53 blisters codeine (Codeine) Allergy Intermediate NAUSEA/VOMITING, Verified 04/14/25 05:53 GI upset butalbital (Fiorinal) Allergy Unknown hives Verified 04/14/25 05:53 caffeine (Fiorinal) Allergy Unknown hives Verified 04/14/25 05:53 Codeine Sulfate Allergy Unknown nausea and Uncoded 02/03/25 10:29 vomiting Review of Systems Review of Systems: as per HPI, full review of systems performed and negative but for the above mentioned pertinent positives and negatives. REPLACED BY [facility] Past Medical History Attestation statement: The following information was validated with the patient. REPLACED BY [facility] Narrative: Paroxysmal atrial fibrillation, atrial flutter, and obstructive sleep apnea, HTN Medical History Positive colorectal cancer screening using Cologuard test Colon cancer screening Encounter for colorectal cancer screening using Cologuard test ADHD Atrial fibrillation Establishing care with new doctor, encounter for Chronic pain JOSHUA (obstructive sleep apnea) HTN (hypertension) Lupus Surgical History History of cardiac ablation for atrial fibrillation (~12/2024) H/O thumb surgery H/O shoulder surgery History of total right hip arthroplasty Family History Family History Brother Aneurysm Father Aneurysm Other CAD (coronary artery disease) Social History Social History Housing: House Alcohol intake: never Patient Tobacco Use Status: Never used Tobacco e-Cigarette/Vaping Use: Currently Using Substance Use Type: Marijuana service: No Current occupational status: employed Cognitive needs: No Hearing needs: No Vision needs: Yes (reading glasses) Physical Exam ED Exam Exam: GENERAL: Ill-Appearing, appears uncomfortable. SKIN: Normal skin color for ethnicity, warm, dry, diffuse patchy raised red rash c/w urushiol induced dermatitis on face, arms, legs, chest, abd. HEENT:? Normocephalic, atraumatic, no stridor, dry mucous membranes, dentition intact, EOMI, eyelid swelling, erythematous oropharynx, no exudates, uvula midline, no tongue or throat swelling. NECK: Soft, supple, full ROM, midline structures nontender, no step-offs, no deformities, no lymphadenopathy. CHEST: Heart regular tachycardia, no murmurs, symmetric chest rise and fall. PULMONARY: Clear to auscultation bilaterally, diminished at the bases, no labored breathing, no wheezes/rhales/rhonchi. ABDOMINAL: Soft, nondistended, nontender, positive bowel sounds in all quadrants. : Deferred. MUSCULOSKELETAL: Normal tone, full range of motion, no deformities, no peripheral edema. NEURO: Alert and oriented x3, CN II through XII intact, equal strength and sensation bilateral upper and lower extremities, no focal neurologic deficits.? PSYCHIATRIC: Flat affect, fluid speech, good eye contact and appropriate demeanor. Vital Signs: Vital Signs - 24 hr 04/14/25 05:48 Temperature 98.4 F Pulse Rate 71 Respiratory Rate 18 Blood Pressure 139/80 Pulse Oximetry 97 Oxygen Delivery Method Room Air BMI result Body Mass Index 26.3 Medications Administered Discontinued Medications Generic Name Dose Route Start Last Admin Trade Name Freq PRN Reason Stop Dose Admin Diphenhydramine HCl 50 mg 04/14/25 06:24 04/14/25 06:29 Diphenhydramine Hcl 50 Mg/Ml Vial IVPUSH 04/14/25 06:25 50 mg ONCE ONE Administration Methylprednisolone Sodium Succinate 125 mg 04/14/25 06:24 04/14/25 06:29 Methylprednisolone Sod Succ 125 Mg/2 Ml Vial IVPUSH 04/14/25 06:25 125 mg ONCE ONE Administration Medical Decision Making Medical Decision Making [facility] Narrative: Patient presented today for signs and symptoms of possible allergic reaction. Differential diagnosis did include angioedema, anaphylaxis, drug reaction, infection, poison deanna rahs, among others. Physical examination does not show any signs of multiple system involvement such as anaphylaxis, though this was considered.? Patient is not having any wheezing, nausea or vomiting, abdominal pain, or concerning swelling of the tongue or oropharynx.? Airway is unobstructed and blood pressures are within normal limits. Anaphylaxis precautions have been given to the patient in a note to return immediately for signs and symptoms of this.? Patient was offered/provided with a prescription for prolonged steroids in the setting of poison deanna dermatitis.? All questions have been answered and patient is stable for discharge. They are welcome back at any time for re-evaluation as we are always happy to do so. Differential Diagnosis Differential Diagnoses: The differential diagnosis associated with the presentation includes (as above) Admission/Observation Consideration of admission/observation: Escalation of care including admission/observation considered Independent Historian Clinical information obtained from an independent historian. History obtained from or confirmed by: Spouse Prescription Management I considered prescription management with: Other (steroids) Chronic Conditions Patient?s care impacted by: Hypertension and Other (afib) Discharge Plan Discharge Clinical Impression: Allergic dermatitis due to poison deanna Patient Disposition: Home, Self-Care Instructions: Poison Deanna (ED) Additional Instructions: Take your prednisone every day for the next 3 weeks until the course is completed. Do not stop this medication early if you start to feel better as you may have a rebound reaction and worsening dermatitis. Return to the emergency department with any new or worsening symptoms including: Worsening swelling of the face or throat, difficulty breathing, fevers greater than 100?, any new symptom that concerns you. Call 911 with any medical emergency. Prescriptions: New prednisone 20 mg tablet See Taper PO DAILY Qty: 42 0RF Taper: Prednisone 60 mg daily for 7 Days and 0 Hour 40 mg daily for 7 Days and 0 Hour 20 mg daily for 7 Days and 0 Hour No Action atorvastatin 20 mg tablet 20 mg PO QPM Qty: 90 3RF valacyclovir [Valtrex] 1 gram tablet 1,000 mg PO DAILY 5 Days Qty: 5 1RF oxycodone-acetaminophen [Percocet] 10-325 mg tablet 1 tab PO TID PRN (Reason: pain) Qty: 90 0RF Rx Instructions: Partial Fill upon patient request. diltiazem HCl [Cardizem CD] 180 mg capsule,extended release 24hr 180 mg PO DAILY 30 Days Qty: 30 0RF Xarelto 20 mg tablet 20 mg PO DAILY epinephrine 0.3 mg/0.3 mL auto-injector IM Interventions: ED Discharge Assessment Last Done: 04/14/25 08:37 Discharge Date/Time: 04/14/25 08:38 Print Language: Greenlandic
--- NOTE | 2025-04-14 07:32 | PC.NURSE ---
Resumed care of pt at 0700, pt reporting post medication he states that he is able to open his right eye a little bit better, denies any blurry vision at this time, reporting no pain, and only mild itching noted at this time. Awaiting further dispo at this time.
[2025-04-14 08:14] VITALS: BP 157/86; PULSE 62; RESP 16; TEMP 36.9; O2SAT 98
[2025-04-14 08:37] VITALS: BP 157/86; PULSE 62; RESP 16; TEMP 36.9; O2SAT 98
== END 2025-04-14 08:38 | disposition home or self-care (01) ==
PROVIDERS: Emergency Provider Emergency Medicine; PCP Physician Assistant Medical
DX: L23.7 Allergic contact dermatitis due to plants, except food (principal)
CPT/HCPCS: 96374; 96375; 99284; J1200; J2919

== ENCOUNTER → 2025-04-21 09:18 | Outpatient (REF) | payer OTHER, SELFPAY ==
--- NOTE | 2025-04-21 09:21 | HM_ITS ---
Conclusion: 1. Patient was monitored for total period of 5 days and 8 hours 2. Baseline was normal sinus rhythm with average heart of 64 beats per minute 3. No significant pauses noted but frequent sinus bradycardia noted, 50.7% of the time heart rate below 60 beats per minute 4. Occasional PACs noted without any sustained tachyarrhythmias 5. Rare PVCs noted with 1 3 beat mauricio of nonsustained VT at 226 beats per minute 6. No patient reported events MTDD
--- OUTSIDE RECORDS SUMMARY | 2025-04-21 09:42 | XMS_ITS | Clinical Summary ---
Author Organization [facility] Address [address] [place] [address] Care Team Providers Care Environmental Issues Instructor Name Role Phone Sebastien Lipscomb MD Primary Care Provider [phone] Social History Tobacco Use Types Packs/Day Years [...] age to complete this topic Care Teams Environmental Issues Instructor Relationship Specialty Start Date End Date Sebastien Lipscomb MD [address] [place] PCP - General Internal Medicine 05/23/19
== END ==
LOC: HO.CARD 09:18
PROVIDERS: PCP Physician Assistant Medical; Visit Provider Internal Medicine
DX: I48.91 Unspecified atrial fibrillation (principal)
CPT/HCPCS: 93242

== ENCOUNTER → 2025-04-21 09:21 | Outpatient (BNV) | payer OTHER, SELFPAY | PROVIDERS: PCP Physician Assistant Medical; Visit Provider Internal Medicine Cardiovascular Disease | DX: I49.1 Atrial premature depolarization (principal); I49.3 Ventricular premature depolarization | CPT/HCPCS: 93244 ==

== ENCOUNTER 2025-05-06 09:03 | Outpatient (AMB) | payer OTHER, SELFPAY ==
[2025-05-06 09:25] VITALS: BP 196/86; PULSE 84; RESP 20; TEMP 36.5; O2SAT 99; BMI 26.6
--- NOTE | 2025-05-06 09:25 | MHC.PC.OV ---
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 Accompanied by: Self / Same As Patient Allergies phenobarbital (PHENOBARBITAL) Allergy (Severe, Verified 05/06/25 12:45) RASH, blisters codeine (Codeine) Allergy (Intermediate, Verified 05/06/25 12:45) NAUSEA/VOMITING, GI upset butalbital (Fiorinal) Allergy (Unknown, Verified 05/06/25 12:45) hives caffeine (Fiorinal) Allergy (Unknown, Verified 05/06/25 12:45) hives Codeine Sulfate Allergy (Unknown, Uncoded 05/06/25 12:45) nausea and vomiting Medication List - Last Reconciled 05/06/25 by Marylu Stauffer PA-C amoxicillin-pot clavulanate 875-125 mg 1 tab PO BID 10 days atorvastatin 20 mg PO QPM diltiazem HCl CD (Cardizem CD) 180 mg PO DAILY 30 days epinephrine mL IM losartan 25 mg PO DAILY oxycodone-acetaminophen 10-325 mg (Percocet) 1 tab PO TID PRN prednisone See Taper mg PO DAILY prednisone 40 mg (2 x 20 mg) PO DAILY 5 days rivaroxaban (Xarelto) 20 mg PO DAILY Tobacco use date assessed: 02/03/25 Fall risk assessment: No Falls in past year Last assessed Fall Risk: 02/03/25 Dental Screening Dental Screen Date: 02/03/25 Did you have a dental visit in the last 12 months?: Yes Did you have a dental problem in the last 6 months where you did not have access to dental care?: No Was dental information given to patient?: Patient has dentist (patient has dentures) HPI follow up HPI Details The patient is a 64-year-old male presenting with symptoms of an upper respiratory tract infection and concerns regarding hypertension management. The patient reports experiencing cold symptoms for approximately two weeks, including coughing and nasal congestion. He denies experiencing chest pain or fever, but notes the production of greenish-yellow sputum. The patient has a history of hypertension, with blood pressure fluctuations noted. He is currently on diltiazem but has experienced issues with previous medications such as lisinopril, which caused dizziness and falls. Recently, the patient experienced an allergic reaction to poison deanna, resulting in facial swelling and requiring prednisone treatment. He also reports using Afrin for nasal congestion, which he believes may contribute to elevated blood pressure. The patient is scheduled for a colonoscopy following a positive Cologuard test, which may be due to hemorrhoids. He is being followed by Cardiology. He is being followed by pain management for chronic pain and receiving injections. Social History - Employment: Patient is currently working. - Exercise: Engages in yard work. [facility] Medical History (Updated 05/06/25 @ 12:58 by Marylu Stauffer PA-C) Allergy to poison deanna URI (upper respiratory infection) Positive colorectal cancer screening using Cologuard test Colon cancer screening Encounter for colorectal cancer screening using Cologuard test ADHD Atrial fibrillation Establishing care with new doctor, encounter for Chronic pain JOSHUA (obstructive sleep apnea) HTN (hypertension) Lupus Surgical History History of cardiac ablation for atrial fibrillation (~12/2024) H/O thumb surgery H/O shoulder surgery History of total right hip arthroplasty Family History Brother Aneurysm Father Aneurysm Other CAD (coronary artery disease) Social History Housing: House Alcohol intake: never Patient Tobacco Use Status: Never used Tobacco e-Cigarette/Vaping Use: Currently Using Substance Use Type: Marijuana service: No Current occupational status: employed Cognitive needs: No Hearing needs: No Vision needs: Yes (reading glasses) Questionnaire PHQ-9 Over the last 2 weeks, how often have you been bothered by any of the following problems? 1. Little interest or pleasure in doing things: not at all 2. Feeling down, depressed, or hopeless: not at all 3. Trouble falling or staying asleep, or sleeping too much: not at all 4. Feeling tired or having little energy: not at all 5. Poor appetite or overeating: not at all 6. Feeling bad about yourself - or that you are a failure or have let yourself or your family down: not at all 7. Trouble concentrating on things, such as reading the newspaper or watching television: not at all 8. Moving or speaking so slowly that other people could have noticed. Or the opposite - being so fidgety or restless that you have been moving around a lot more than usual: not at all 9. Thoughts that you would be better off or of hurting yourself in some way: not at all Total score: 0 Depression Screening Interpretation: Negative Depression Screening Done: Yes 11397 - PHQ-9 Billing: Yes Source: Developed by Drs. Gab Panda, Cheyanne Fabian, Wilder Cunningham and colleagues, with an educational kirby from [employer]. Thrive Questionnaire Date Thrive assessed: 02/03/25 I am a: Patient What is your living situation today?: I have a steady place to live Within the past 12 months, did the food you bought not last and you didn't have the money to get more?: Never true Within the past 12 months, did you worry whether your food would run out before you got money to buy more?: Never true Do you have trouble paying for medicines?: No Do you have trouble getting transportation to medical appointments?: No Do you have trouble paying your heating and electricity bill?: No Do you have trouble taking care of your child, family member or friend?: No Do you have trouble with day-to-day activities such as bathing, preparing meals, shopping, managing finances, etc.?: No Are you currently unemployed and looking for a job?: No Are you interested in more education?: No Please select the resources that you would like help with: None THRIVE Score: 0 AUDIT C Alcohol Use Questionnaire (AUDIT-C) 1. How often do you have a drink containing alcohol?: Never 3. How often do you have six or more drinks on one occasion?: Never Total Score: 0 Score Reviewed/Action Taken: No EM-7 AMB Questionnaire EM-7 Date EM - 7 assessed: 02/03/25 Feeling nervous, anxious, or on edge: 0 = Not at all Not being able to stop or control worryin = Not at all Worrying too much about different things: 0 = Not at all Trouble relaxin = Not at all Being so restless that it is hard to sit still: 0 = Not at all Becoming easily annoyed or irritable: 0 = Not at all Feeling afraid as if something awful might happen: 0 = Not at all Total EM-7 score (0-4 normal; 5-9 mild; 10-14 moderate; 15-21 severe): 0 Source: Developed by Drs. Gab Panda, Cheyanne Fabian, Wilder Cnuningham and colleagues, with an educational kirby from [employer]. EM-7 Assessment Billing EM-7 Assessment Tool: EM-7 Assessment 47671 Review of Systems Const Details: - Respiratory: Reports cough with greenish-yellow sputum production for one to two weeks. Denies dyspnea or chest pain. - Cardiovascular: Reports palpitations. Denies chest pain. - General: Denies fever. All systems reviewed & are unremarkable except as noted in HPI and below Physical exam (Primary Care) Vital Signs: Last Vital Signs Temp 97.7 F 05/06/25 09:25 Pulse 84 05/06/25 09:25 Resp 20 05/06/25 09:25 BP 196/86 H 05/06/25 09:25 Pulse Ox 99 05/06/25 09:25 Oxygen Delivery Method Room Air 05/06/25 09:25 Care Plan Goal for BP management: <140/90 patient on diltiazem 180 mg daily will add losartan 25 mg and patient to return in 1 month with blood pressure diary and blood pressure monitor BMI result Body Mass Index 26.6 BMI Assessment/Plan discussion: High BMI High, discussed plan: lifestyle, weight reduction, dietary, physical activity and alcohol moderation Tobacco/Smoking Status: Tobacco use Status Tobacco use date assessed 02/03/25 05/06/25 09:35 Patient Tobacco Use Status Never used Tobacco 05/06/25 09:35 e-Cigarette/Vaping Use Currently Using 05/06/25 09:35 PHQ-9: PHQ-9 Score PHQ-9: Total score 0 05/06/25 09:35 Depression Screening Interpretation: Negative Thrive Assessment: Date of Thrive Assessment Date Thrive assessed 02/03/25 05/06/25 09:35 Const Other: Appearance: Alert. Oriented X3. No acute distress. Head: Normal external exam. Normocephalic. Atraumatic. Eyes: Pupils are equal, round, and reactive to light. Extraocular movements intact. Conjunctiva and sclera normal. Eyelids normal. Throat: Pharynx normal. Uvula midline. Moist mucous membranes. Neck: Normal inspection. Neck supple. Full range of motion. No adenopathy. No meningeal signs. No neck mass noted. Cardiovascular: Normal heart rate and rhythm. Heart sound normal. No murmurs noted. Pulses normal throughout. Respiratory: No respiratory distress. Painless inspiration. Breath sounds normal. No wheezes/rales/rhonchi noted. No accessory muscle usage noted or decreased air movement noted. Back: Full range of motion noted. Skin: Skin warm and dry. Normal skin color. Normal skin turgor. No rashes/lesions/lacerations noted. Extremities: Extremities exhibit normal range of motion. Neuro: Oriented X 3. No motor deficit. No sensory deficit. Reflexes normal. Results Reviewed Results Reviewed: - Screening: Positive Cologuard test. Coding Level of Care Code Est Pt Level 4 (36938) Complex EM visit Add On G2211 Diagnoses URI (upper respiratory infection) J06.9 HTN (hypertension) I10 Allergy to poison deanna Z91.09 Colon cancer screening Z12.11 Additional Codes EM-7 Assessment Billing - EM-7 Assessment Tool: EM-7 Assessment 09611 ([id number]) PHQ-9 - 42531 - PHQ-9 Billing: Yes ([id number]) Assessment & Plan Assessment & Plan (1) URI (upper respiratory infection): Code(s): J06.9 - Acute upper respiratory infection, unspecified Category: Medical Plan: The patient is experiencing symptoms consistent with an upper respiratory tract infection, including cough and nasal congestion. He denies fever and chest pain, and the sputum is greenish-yellow. A course of antibiotics, specifically Augmentin, has been prescribed to address the infection. (2) HTN (hypertension): Code(s): I10 - Essential (primary) hypertension Category: Medical Plan: The patient has a history of hypertension with fluctuating blood pressure readings. He is currently on diltiazem but has experienced adverse effects with lisinopril, including dizziness and falls. Losartan has been prescribed to manage his blood pressure, and he will monitor his blood pressure at home. (3) Allergy to poison deanna: Code(s): Z91.09 - Other allergy status, other than to drugs and biological substances Category: Medical Plan: The patient experienced an allergic reaction to poison deanna, resulting in facial swelling. He was treated with prednisone, which he reports helps with his symptoms. (4) Colon cancer screening: Code(s): Z12.11 - Encounter for screening for malignant neoplasm of colon Category: Medical Plan: The patient is scheduled for a colonoscopy following a positive Cologuard test. The positive result may be due to hemorrhoids, but further investigation is warranted. Patient is going to be following up with gastroenterology for colonoscopy. Plan Plan Patient was informed and verbally consented to the use of an ambient scribe for clinic note documentation during this visit. 1. Upper Respiratory Tract Infection The patient is experiencing symptoms consistent with an upper respiratory tract infection, including cough and nasal congestion. He denies fever and chest pain, and the sputum is greenish-yellow. A course of antibiotics, specifically Augmentin, has been prescribed to address the infection. 2. Hypertension The patient has a history of hypertension with fluctuating blood pressure readings. He is currently on diltiazem but has experienced adverse effects with lisinopril, including dizziness and falls. Losartan has been prescribed to manage his blood pressure, and he will monitor his blood pressure at home. 3. Allergic Reaction To Poison Deanna The patient experienced an allergic reaction to poison deanna, resulting in facial swelling. He was treated with prednisone, which he reports helps with his symptoms. 4. Preventative Care: Colon Cancer Screening The patient is scheduled for a colonoscopy following a positive Cologuard test. The positive result may be due to hemorrhoids, but further investigation is warranted. During the visit, we discussed the patient's symptoms of an upper respiratory tract infection and the management of his hypertension. I recommended a course of Augmentin for the infection and prescribed losartan to better control his blood pressure. We also reviewed the need for a colonoscopy following a positive Cologuard test, which may be due to hemorrhoids. Medications: New losartan 25 mg PO DAILY 30 tabs 0RF amoxicillin-pot clavulanate 875-125 mg 1 tab PO BID 20 tabs 0RF 10 days prednisone 40 mg (2 x 20 mg) PO DAILY 10 tabs 0RF 5 days
--- OUTSIDE RECORDS SUMMARY | 2025-05-06 09:57 | XMS_ITS | Clinical Summary ---
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
--- OUTSIDE RECORDS SUMMARY | 2025-05-06 09:57 | XMS_ITS | Patient Health Record ---
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 Name Role Phone EMELI HERNANDEZ Primary Care Provider Gab Torres Unavailable [phone] Allergies Allergen (clinical drug ingredient) Drug/Non Drug Allergy documented on EMR Reaction Allergy Type Onset Date Status phenobarbital PHENobarbital Unknown Drug Allergy Active codeine Codeine Unknown Drug Allergy Active Reason For Referral No Information Medications Medication SIG (Take, Route, Frequency, Duration) Notes Start Date End Date Status Xarelto 20 MG 1 tablet with food O rally Once a day for 30 day(s) 04/24/2025 Active Atorvastatin Calcium 20 MG 1 tablet Oral ly Once a day 04/24/2025 Active dilTIAZem HCl ER 180 MG 1 tablet Orally Once a day for 30 day(s) 04/24/2025 Active Immunizations Vaccine Route Administration Date Status Comme nts Influenza Unknown 04/24/2025 Refused Vital Signs Temperature 96.9 degrees Fahrenheit 04/24/2025 Blood pressure diastolic 01 mm Hg 04/24/2025 Height 74 in 04/24/2025 Blood pressure systolic 001 mm Hg 04/24/2025 Weight 214.8 lbs 04/24/2025 BMI 27.58 kg/m2 04/24/2025 Procedures Procedure Date Ordered Date Performed Result Body Sit e COLONOSCOPY 04/24/2025 N/A Encounters Encounter Location Date Provider Diagnosis [facility] [address] [place] [id number] 04/24/2025 Gab Levine Positive colorectal cancer screening using Cologuard test R19.5 Assessments Encounter Date Diagnosis (ICD Code) Assessment Notes Treatment Notes Treatment Clinical Notes Section Notes 04/24/2025 Positive colorectal cancer screening using Cologuard test (ICD-10 - R19.5) Overall, Yasmany appears well and is not having any particularly new or worrisome GI complaints. We did review his need for a colonoscopy at this point since he has never had one and now has a positive Cologuard test. We did review the rationale for this in regard to colorectal cancer prevention and/or early detection. Full consent has been obtained for this, including risks of bleeding and perforation. The procedure will be done with monitored anesthesia care. He was given the below instructions regarding adjustment of his medication for the procedure. Yasmany was comfortable with this plan. Thank you again for allowing me to participate in Yasmany's care. I shall continue to keep you advised of his progress. Plan Of Treatment Pending Test Test Name Order Date COLONOSCOPY 04/24/2025 Next Appt Details Provider Name:Gab Levine , 07/25/2025 11:40:00 AM, [address] [place] [address] , [place], [place], [phone], Insurance Providers Payer Name Payer Address Payer Phone Subscriber Number Group Number Insured Name Patient Relationship to Insured Coverage Start Date Coverage End Date [employer] [place] [address] [address] [place] [address] [id number] YASMANY METCALF Self - patient is the insured Medical (General) History Medical History History ICD Code HTN Denies NV,DM,CVA,Lung disease,renal dise ase Back pain Cardiac ablation at [facility] 12/2024 for Afib--on Xarelto Surgical History Surgery Date(Month/Year) Right Hand surgery Both Rotator cuffs Right hip replacement 2014
[2025-05-06 12:45] VITALS: BP 160/96
== END 2025-05-06 09:48 | disposition home or self-care (01) ==
LOC: HO.HMCSH 09:03
PROVIDERS: PCP Physician Assistant Medical; Visit Provider Physician Assistant Medical
DX: J06.9 Acute upper respiratory infection, unspecified (principal); I10 Essential (primary) hypertension; Z91.09 Other allergy status, other than to drugs and biological substances; Z12.11 Encounter for screening for malignant neoplasm of colon

== ENCOUNTER → 2025-05-06 09:03 | Outpatient (BNVA) | payer OTHER, SELFPAY | PROVIDERS: PCP Physician Assistant Medical; Visit Provider Physician Assistant Medical | DX: I10 Essential (primary) hypertension (principal); J06.9 Acute upper respiratory infection, unspecified; Z91.09 Other allergy status, other than to drugs and biological substances | CPT/HCPCS: 96127 ==

== ENCOUNTER 2025-06-06 10:01 | Outpatient (AMB) | payer OTHER, SELFPAY ==
--- NOTE | 2025-06-06 10:15 | A.OFFPC_ITS ---
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 Tax Required: No Accompanied by: Self / Same As Patient Allergies phenobarbital (PHENOBARBITAL) Allergy (Severe, Verified 06/06/25 11:38) RASH, blisters codeine (Codeine) Allergy (Intermediate, Verified 06/06/25 11:38) NAUSEA/VOMITING, GI upset butalbital (Fiorinal) Allergy (Unknown, Verified 06/06/25 11:38) hives caffeine (Fiorinal) Allergy (Unknown, Verified 06/06/25 11:38) hives Codeine Sulfate Allergy (Unknown, Uncoded 06/06/25 11:38) nausea and vomiting Medication List - Last Reconciled 06/06/25 by Marylu Stauffer PA-C atorvastatin 20 mg PO QPM diltiazem HCl CD (Cardizem CD) 180 mg PO DAILY 30 days epinephrine mL IM losartan 25 mg PO DAILY prednisone 5 mg PO DAILY rivaroxaban (Xarelto) 20 mg PO DAILY Tobacco use date assessed: 06/06/25 Fall risk assessment: No Falls in past year Last assessed Fall Risk: 02/03/25 Dental Screening Dental Screen Date: 06/06/25 Did you have a dental visit in the last 12 months?: Yes Did you have a dental problem in the last 6 months where you did not have access to dental care?: No Was dental information given to patient?: Patient has dentist (patient has dentures) HPI 1 month f/u HPI Details The patient is a 65-year-old male presenting with medication management and follow-up for multiple chronic conditions. He reported a recent allergic reaction that led to an emergency room visit, where he was treated with prednisone. The allergic reaction was severe enough to obscure his facial fe atures, necessitating a high-dose prednisone taper. The patient has a history of sacroiliac joint dysfunction, which was identified during a recent consultation. He was advised that an injection could alleviate the symptoms, but he expressed concerns about the procedure and potential lack of post-procedural pain management. Hypertension is being managed with losartan and diltiazem, with current blood pressure readings noted as perfect. The patient previously experienced dizziness with lisinopril, which was discontinued. The patient also has a history of hyperlipidemia, managed with atorvastatin. He is on Xarelto for atrial fibrillation, with a recent ablation procedure performed in December, accompanied by extensive blood work. [facility] Medical History Allergy to poison lloyd URI (upper respiratory infection) Positive colorectal cancer screening using Cologuard test Colon cancer screening Encounter for colorectal cancer screening using Cologuard test ADHD Atrial fibrillation Establishing care with new doctor, encounter for Chronic pain JOSHUA (obstructive sleep apnea) HTN (hypertension) Lupus Surgical History History of cardiac ablation for atrial fibrillation (~12/2024) H/O thumb surgery H/O shoulder surgery History of total right hip arthroplasty Family History Brother Aneurysm Father Aneurysm Other CAD (coronary artery disease) Social History Housing: House Alcohol intake: never Patient Tobacco Use Status: Never used Tobacco e-Cigarette/Vaping Use: Currently Using Substance Use Type: Marijuana service: No Current occupational status: unemployed Cognitive needs: No Hearing needs: No Vision needs: Yes (reading glasses) Questionnaire PHQ-9 Over the last 2 weeks, how often have you been bothered by any of the following problems? 1. Little interest or pleasure in doing things: not at all 2. Feeling down, depressed, or hopeless: not at all 3. Trouble falling or staying asleep, or sleeping too much: not at all 4. Feeling tired or having little energy: not at all 5. Poor appetite or overeating: not at all 6. Feeling bad about yourself - or that you are a failure or have let yourself or your family down: not at all 7. Trouble concentrating on things, such as reading the newspaper or watching television: not at all 8. Moving or speaking so slowly that other people could have noticed. Or the opposite - being so fidgety or restless that you have been moving around a lot more than usual: not at all 9. Thoughts that you would be better off or of hurting yourself in some way: not at all Total score: 0 Depression Screening Interpretation: Negative Depression Screening Done: Yes 61828 - PHQ-9 Billing: Yes Source: Developed by Drs. Gab Panda, Cheyanne Fabian, Wilder Cunningham and colleagues, with an educational kirby from [employer]. Thrive Questionnaire Date Thrive assessed: 02/03/25 I am a: Patient What is your living situation today?: I have a steady place to live Within the past 12 months, did the food you bought not last and you didn't have the money to get more?: Never true Within the past 12 months, did you worry whether your food would run out before you got money to buy more?: Never true Do you have trouble paying for medicines?: No Do you have trouble getting transportation to medical appointments?: No Do you have trouble paying your heating and electricity bill?: No Do you have trouble taking care of your child, family member or friend?: No Do you have trouble with day-to-day activities such as bathing, preparing meals, shopping, managing finances, etc.?: No Are you currently unemployed and looking for a job?: No Are you interested in more education?: No Please select the resources that you would like help with: None THRIVE Score: 0 AUDIT C Alcohol Use Questionnaire (AUDIT-C) 1. How often do you have a drink containing alcohol?: Never 3. How often do you have six or more drinks on one occasion?: Never Total Score: 0 Score Reviewed/Action Taken: No EM-7 AMB Questionnaire EM-7 Date EM - 7 assessed: 02/03/25 Feeling nervous, anxious, or on edge: 0 = Not at all Not being able to stop or control worryin = Not at all Worrying too much about different things: 0 = Not at all Trouble relaxin = Not at all Being so restless that it is hard to sit still: 0 = Not at all Becoming easily annoyed or irritable: 0 = Not at all Feeling afraid as if something awful might happen: 0 = Not at all Total EM-7 score (0-4 normal; 5-9 mild; 10-14 moderate; 15-21 severe): 0 Source: Developed by Drs. Gab Panda, Cheyanne Fabian, Wilder Cunningham and colleagues, with an educational kirby from [employer]. EM-7 Assessment Billing EM-7 Assessment Tool: EM-7 Assessment 46011 Review of Systems Const Details: - Cardiovascular: Reports dizziness with lisinopril, now discontinued. Denies current dizziness with diltiazem. - Musculoskeletal: Reports back pain and sacroiliac joint dysfunction. - Dermatological: Reports severe allergic reaction with facial swelling. All systems reviewed & are unremarkable except as noted in HPI and below Physical exam (Primary Care) Vital Signs: Last Vital Signs Temp 97.5 F 06/06/25 10:20 Resp 20 06/06/25 10:20 BP 126/69 06/06/25 10:20 Pulse Ox 97 06/06/25 10:20 Oxygen Delivery Method Room Air 06/06/25 10:20 Care Plan Goal for BP management: <140/90 at Goal BMI result Body Mass Index 27.8 Tobacco/Smoking Status: Tobacco use Status Tobacco use date assessed 06/06/25 06/06/25 10:19 Patient Tobacco Use Status Never used Tobacco 06/06/25 10:19 e-Cigarette/Vaping Use Currently Using 06/06/25 10:19 PHQ-9: PHQ-9 Score PHQ-9: Total score 0 06/06/25 10:19 Depression Screening Interpretation: Negative Thrive Assessment: Date of Thrive Assessment Date Thrive assessed 02/03/25 06/06/25 10:19 Const Other: Appearance: Alert. Oriented X3. No acute distress. Head: Normal external exam. Normocephalic. Atraumatic. Eyes: Pupils are equal, round, and reactive to light. Extraocular movements intact. Conjunctiva and sclera normal. Eyelids normal. Throat: Pharynx normal. Uvula midline. Moist mucous membranes. Neck: Normal inspection. Neck supple. Full range of motion. Cardiovascular: Normal heart rate and rhythm. Respiratory: No respiratory distress. Painless inspiration. Back: Full range of motion noted. Skin: Skin warm and dry. Normal skin color. Normal skin turgor. No rashes/lesions/lacerations noted. Extremities: Extremities exhibit normal range of motion. Neuro: Oriented X 3. No motor deficit. No sensory deficit. Reflexes normal. Results Reviewed Results Reviewed: - Labs: Extensive blood work performed in December during ablation procedure. Coding Level of Care Code Est Pt Level 4 (17892) Complex EM visit Add On G2211 Diagnoses HTN (hypertension) I10 Atrial fibrillation I48.91 Hyperlipidemia E78.5 Additional Codes EM-7 Assessment Billing - EM-7 Assessment Tool: EM-7 Assessment 26836 ([id number]) PHQ-9 - 94445 - PHQ-9 Billing: Yes ([id number]) Assessment & Plan Assessment & Plan (1) HTN (hypertension): Code(s): I10 - Essential (primary) hypertension Category: Medical Plan: Blood pressure controlled today with diltiazem 180 mg daily, losartan 20 mg daily. Condition is chronic and stable continue to monitor. (2) Atrial fibrillation: Comment: Status post ablation at [facility] on 12/2024 Code(s): I48.91 - Unspecified atrial fibrillation Category: Medical Plan: Heart rate controlled today with diltiazem 180 mg daily patient to continue Xarelto 20 mg daily. Condition is chronic and stable will continue to monitor. (3) Hyperlipidemia: Code(s): E78.5 - Hyperlipidemia, unspecified Category: Medical Plan: Patient to continue atorvastatin 20 mg at bedtime. Condition is chronic and stable will continue to monitor. Plan The plan for the patient's allergic reaction includes monitoring for any recurrence and ensuring that prednisone is available for future episodes if needed. For sacroiliac joint dysfunction, the patient was advised about the option of an injection to alleviate symptoms, though he expressed concerns about post-procedural pain management. Hypertension management will continue with losartan and diltiazem, as the patient's blood pressure is currently well- controlled. The patient should continue atorvastatin for hyperlipidemia and Xarelto for atrial fibrillation, with regular follow-up to monitor these conditions. During the visit, I discussed with the patient the management of his allergic reaction and the importance of having prednisone available for future episodes. We also talked about the option of an injection for his sacroiliac joint dysfunction, addressing his concerns about post-procedural pain management. I emphasized the need to continue his current medications for hypertension, hyperlipidemia, and atrial fibrillation, and the importance of regular follow-up to monitor these conditions. Patient was informed and verbally consented to the use of an ambient scribe for clinic note documentation during this visit. Medications: New prednisone 5 mg PO DAILY 45 tabs 3RF Discontinued prednisone Discontinued Reason: Doctor's Order 40 mg (2 x 20 mg) PO DAILY 5 days 10 tabs 0RF Patient Instructions: - Monitor for any signs of allergic reaction and have prednisone available. - Consider the option of an injection for sacroiliac joint dysfunction, but discuss any concerns with your doctor. - Continue taking losartan, diltiazem, atorvastatin, and Xarelto as prescribed. - Schedule regular follow-up appointments to monitor chronic conditions.
[2025-06-06 10:20] VITALS: BP 126/69; RESP 20; TEMP 36.4; O2SAT 97; BMI 27.8
--- OUTSIDE RECORDS SUMMARY | 2025-06-06 10:35 | XMS_ITS | Clinical Summary ---
Author Organization [facility] Address [address] [place] [address] Care Team Providers Care Bleacher Sulfite Pulp Name Role Phone Sebastien Lipscomb MD Primary Care Provider [phone] Social History Tobacco Use Types Packs/Day Years [...] 2008 Zoster Vaccines (1 of 2) 2008 Depression Screening 09/18/2024 COVID-19 Vaccine (1 - 2023-2 5 season) 2025 Influenza Vaccine (#1) 2025 RSV Immunization Adult [...] age to complete this topic Care Teams Bleacher Sulfite Pulp Relationship Specialty Start Date End Date Sebastien Lipscomb MD [address] [place] PCP - General Internal Medicine 05/23/19
== END 2025-06-06 10:49 | disposition home or self-care (01) ==
LOC: HO.HMCSH 10:01
PROVIDERS: PCP Physician Assistant Medical; Visit Provider Physician Assistant Medical
DX: I10 Essential (primary) hypertension (principal); I48.91 Unspecified atrial fibrillation; E78.5 Hyperlipidemia, unspecified

== ENCOUNTER → 2025-06-06 10:01 | Outpatient (BNVA) | payer OTHER, SELFPAY | PROVIDERS: PCP Physician Assistant Medical; Visit Provider Physician Assistant Medical | DX: I10 Essential (primary) hypertension (principal); E78.5 Hyperlipidemia, unspecified; I48.91 Unspecified atrial fibrillation; M53.3 Sacrococcygeal disorders, not elsewhere classified | CPT/HCPCS: 96127 ==

== ENCOUNTER 2025-09-10 09:11 | Outpatient (AMB) | payer OTHER, SELFPAY ==
--- OUTSIDE RECORDS SUMMARY | 2025-07-25 05:30 | XMS_ITS ---
Author Organization [facility] Address [address] [place] [address] Care Team Providers Care Section Beamer Name Role Phone EMELI HERNANDEZ Primary Care Provider Gab Torres Unavailable [phone] REASON FOR VISIT positive coloncancer screening using cologuard Encounters Encounter Location Date Provider Diagnosis [facility] Outpatient [address] [place] [phone] 07/25/2025 Gab Levine Plan Of Treatment Next Appt Details Provider Name:Gab Levine , 10/01/2025 08:40:00 AM, [address] [place] [address], [phone], Progress Notes * METCALFYASMANY GOODMANDOB:1960 (65 yo M)Acc No.[id number]:07/25/2025 COLON WITH MAC Patient: YASMANY BRYSON Provider: Roseanne Levine MD :1960 A ge:65 Y S ex:Male Date:07/25/2025 Address:[address] [place] [address] Pcp:EMELI HERNANDEZ Subjective: * Chief Complaints: * P ositive coloncancer screening using cologuard * The named appointment provid er may or may not be the originator of this progress note, and it is not deemed complete until electronically signed by the appointment provider. Sign off status: Pending * Provider: Roseanne Levine MD Date: 1 09/24/2024 Generated for Magdalene dorantes/Fabritney/eTransmitting on: 11/11/2024 09:15 AM EST
--- OUTSIDE RECORDS SUMMARY | 2025-09-10 09:15 | XMS_ITS | Clinical Summary ---
Author Organization [facility] Address [address] [place] [address] Care Team Providers Care Fabrication Mig Welder Name Role Phone Sebastien Lipscomb MD Primary Care Provider [phone] Social History Tobacco Use Types Packs/Day Years [...] Depression Screening 09/18/2024 COVID-19 Vaccine (1 - 2024-2 6 season) 2025 Influenza Vaccine (#1) 2025 RSV [...] age to complete this topic Care Teams Fabrication Mig Welder Relationship Specialty Start Date End Date Sebastien Lipscomb MD [address] [place] PCP - General Internal Medicine 05/23/19
--- OUTSIDE RECORDS SUMMARY | 2025-09-10 09:16 | XMS_ITS | Patient Health Record ---
Author Organization [facility] Address [address] [place] [phone] Care Team Providers Care Picture Framer Name Role Phone EMELI HERNANDEZ Primary Care Provider Gab Torres Unavailable [phone] Allergies Allergen (clinical drug ingredient) Drug/Non Drug Allergy documented on EMR Reaction Allergy Type Onset Date Status codeine Codeine Unknown Drug Allergy Active phenobarbital PHENobarbital Unknown Drug Allergy Active Reason For Referral No Information Medications Medication SIG (Take, Route, Frequency, Duration) Notes Start Date End Date Status dilTIAZem HCl ER 180 MG Tablet Extended Release 24 Hour 1 tablet Orally Once a day; Duration: 30 day(s) 04/24/2025 Unknown Xarelto 20 MG Tablet 1 tablet with food Orally Once a day; Duration: 30 day(s) 04/24/2025 Unknown Atorvastatin Calcium 20 MG Tablet 1 tablet Orally Once a day 04/24/2025 Unknown Immunizations Vaccine Route Administration Date Status Comme nts Influenza Unknown 04/24/2025 Refused Social History Social History Additional Details Category Social Info Options Details Miscellaneous: Marital status: Occupation: retired Vital Signs Temperature 96.9 degrees Fahrenheit 04/24/2025 Blood pressure diastolic 01 mm Hg 04/24/2025 Height 74 in 04/24/2025 Blood pressure systolic 001 mm Hg 04/24/2025 Weight 214.8 lbs 04/24/2025 BMI 27.58 kg/m2 04/24/2025 Procedures Procedure Date Ordered Date Performed Result Body Sit e COLONOSCOPY 04/24/2025 N/A Encounters Encounter Location Date Provider Diagnosis [facility] [address] [place] [phone] 04/24/2025 Gab Levine Positive colorectal cancer screening using Cologuard test R19.5 [facility] [address] [place] [address] 04/24/2025 Gab Levine [facility] [address] [place] [address] 07/04/2025 Gab Levine Assessments Encounter Date Diagnosis (ICD Code) Assessment [...] Provider Name:Gab Levine , 10/01/2025 08:40:00 AM, [address] [place] [address] , [place], [place], [phone], Insurance Providers Payer Name Payer Address Payer Phone Subscriber Number Group Number Insured Name Patient Relationship to Insured Coverage Start Date Coverage End Date [employer] [place] [address] [address] [place] [address] [id number] YASMANY METCALF Self - patient is the insured Medical (General) History Medical History History ICD Code HTN Denies CT,DM,CVA,Lung disease,renal dise ase Back pain Cardiac ablation at [facility] 12/2024 for Afib--on Xarelto Surgical History Surgery Date(Month/Year) Right hip replacement 2014 Both Rotator cuffs Right Hand surgery
[2025-09-10 09:20] VITALS: BP 130/72; PULSE 76; BMI 27.2
--- NOTE | 2025-09-10 09:20 | MHC.OFFVIS ---
Vital Signs 09/10/25 09:20 Height 6 ft 2 in Weight 211 lb 10.3 oz BMI 27.2 BP 130/72 Blood Pressure Location Lt brachial Position Sitting Pulse 76 Pulse Source Pulse Oximeter Intake Visit Reasons: 6 mth fu after holter Allergies phenobarbital (PHENOBARBITAL) Allergy (Severe, Verified 06/06/25 11:38) RASH, blisters codeine (Codeine) Allergy (Intermediate, Verified 06/06/25 11:38) NAUSEA/VOMITING, GI upset butalbital (Fiorinal) Allergy (Unknown, Verified 06/06/25 11:38) hives caffeine (Fiorinal) Allergy (Unknown, Verified 06/06/25 11:38) hives Codeine Sulfate Allergy (Unknown, Uncoded 06/06/25 11:38) nausea and vomiting Medication List - Last Reconciled 09/10/25 by Jamey Garcia MD atorvastatin 20 mg PO QPM diltiazem HCl CD (Cardizem CD) 180 mg PO DAILY 30 days epinephrine mL IM losartan 25 mg PO DAILY prednisone 5 mg PO DAILY rivaroxaban (Xarelto) 20 mg PO DAILY HPI Comments Details: [place] returns for follow-up. To recall, he has a history of atrial flutter as well as fibrillation. He was maintained on diltiazem as well as metoprolol. Due to high arrhythmia burden, he also saw EP and had ablation done few months back. He states he is doing fine. Even when he had the arrhythmia he was not feeling much symptoms. However, he states he is feeling much less tired now not clear if it is because of freedom from arrhythmia or because of stopping some medications like beta-blockers. Otherwise, he underwent coronary CTA in the past that shows moderate CAD but he has got no angina. Overall, feeling good. No new concerns. [facility] Medical History Allergy to poison lloyd URI (upper respiratory infection) Positive colorectal cancer screening using Cologuard test Colon cancer screening Encounter for colorectal cancer screening using Cologuard test ADHD Atrial fibrillation Establishing care with new doctor, encounter for Chronic pain JOSHUA (obstructive sleep apnea) HTN (hypertension) Lupus Surgical History History of cardiac ablation for atrial fibrillation (~12/2024) H/O thumb surgery H/O shoulder surgery History of total right hip arthroplasty Family History Brother Aneurysm Father Aneurysm Other CAD (coronary artery disease) Social History Housing: House Alcohol intake: never Patient Tobacco Use Status: Never used Tobacco e-Cigarette/Vaping Use: Currently Using Substance Use Type: Marijuana service: No Current occupational status: unemployed Cognitive needs: No Hearing needs: No Vision needs: Yes (reading glasses) Review of Systems Const Denies weakness ENT Denies dizziness Card Denies chest pain, Denies chest pain with activity, Denies syncope, Denies rapid heart rate, Denies pedal edema, Denies edema, Denies leg edema, Denies lightheadedness, Denies palpitations, Denies dyspnea, Denies dyspnea on exertion and Denies orthopnea Resp Denies cough, Denies dyspnea and Denies dyspnea on exertion GI Denies hematochezia and Denies change in stool character Musc Denies abnormal gait, Denies muscle cramps, Denies muscle weakness, Denies numbness, Denies radiating pain into limb and Denies tingling Neuro Denies abnormal gait, Denies dizziness, Denies syncope, Denies numbness, Denies tingling and Denies weakness Endo Denies palpitations Physical Exam Vital Signs: Last Vital Signs Pulse 76 09/10/25 09:20 BP 130/72 09/10/25 09:20 BMI result Body Mass Index 27.2 Const General: comfortable and no acute distress Orientation/consciousness: patient oriented x3 HEENT Other: Unremarkable Head: Yes normal to inspection Neck Neck: Yes normal visual inspection Chest Chest palpation & inspection: normal inspection of the chest Resp Auscultation: clear to auscultation bilaterally Cardio Palpation: normal PMI Heart sounds: S1 normal heart sound present, S2 normal heart sound present, no gallops, no murmurs and no rubs GI Palpation (GI): Soft to palpation Back/Spine/Pelvis Other: unremarkable Skin General skin exam: no rashes or lesions noted Neuro General: patient oriented x3 Extrem General: Yes normal to inspection Psych Mental Status: mental status grossly normal Assessment & Plan Assessment & Plan (1) Atrial flutter by electrocardiogram: Code(s): I48.92 - Unspecified atrial flutter Category: Medical Plan: Status post ablation for atrial fibrillation, typical atrial flutter, atypical atrial flutter, 12/2024. Remains on diltiazem and Xarelto. (2) PAF (paroxysmal atrial fibrillation): Code(s): I48.0 - Paroxysmal atrial fibrillation Category: Medical Plan: As above. (3) Atherosclerotic cardiovascular disease: Code(s): I25.10 - Atherosclerotic heart disease of squaxin coronary artery without angina pectoris Category: Medical Plan: In the coronary CTA, moderate coronary disease burden, mostly in the LAD, diagonal and RCA. Minimal disease in the left main, circumflex and OM1. Clinically, he has got no angina. LDL 115 mg/dl. May rechecked. Possible increased statins based on this. (4) HTN (hypertension): Code(s): I10 - Essential (primary) hypertension Category: Medical Plan: Stable. (5) JOSHUA (obstructive sleep apnea): Code(s): G47.33 - Obstructive sleep apnea (adult) (pediatric) Category: Medical Plan: There is a history of sleep apnea but he does not use CPAP. He believes because of weight loss he does not have it anymore. Plan I discussed the patient's cholesterol management with him, explaining that while his LDL has improved to 115, it is still above the target of 60-70 mg/dL for a patient with plaque. I also addressed his question about the continued need for diltiazem post-ablation for atrial fibrillation, clarifying that it serves as a backup for prevention given that ablation is not a 100% cure. We agreed to recheck his cholesterol with a new lab order. A refill for his diltiazem was sent to his preferred pharmacy, and we scheduled a follow-up appointment in six months. Patient was informed and verbally consented to the use of an ambient scribe for clinic note documentation during this visit. Orders: Orders Lipid Panel Today E78.5 - Hyperlipidemia, unspecified Liver Panel Today E78.5 - Hyperlipidemia, unspecified, I25.10 - Atherosclerotic heart disease of squaxin coronary artery without angina pectoris Medications: Changed From diltiazem HCl CD (Cardizem CD) 180 mg PO DAILY 30 days 30 caps 0RF To diltiazem HCl CD (Cardizem CD) 180 mg PO DAILY 90 caps 1RF 90 days Coding Level of Care Code Est Pt Level 4 (76393) Add On Problem Visit Only Diagnoses Atrial flutter by electrocardiogram I48.92 PAF (paroxysmal atrial fibrillation) I48.0 Atherosclerotic cardiovascular disease I25.10 HTN (hypertension) I10 JOSHUA (obstructive sleep apnea) G47.33
== END 2025-09-10 09:38 | disposition home or self-care (01) ==
LOC: HO.HCS 09:12
PROVIDERS: PCP Internal Medicine; Visit Provider Internal Medicine
DX: I48.92 Unspecified atrial flutter (principal); I48.0 Paroxysmal atrial fibrillation; I25.10 Atherosclerotic heart disease of native coronary artery without angina pectoris; I10 Essential (primary) hypertension; G47.33 Obstructive sleep apnea (adult) (pediatric)
CPT/HCPCS: 99214